=== PATIENT | female | born 1945 | race Caucasian/White ===

== ENCOUNTER 2018-08-18 19:24 | Inpatient (IN) | payer OTHER, MEDICAID, BC ==
[2018-08-18] MEDS: PIPER-TAZO 3.375 GM IV (PMX) 100 ML IVPB (20:17)
[2018-08-18] MEDS: ONDANSETRON 4 MG INJ IV (20:17)
[2018-08-18] MEDS: ACETAMINOPHEN 325 MG TAB PO (20:18)
[2018-08-18] MEDS: VANCOMYCIN 1 GM (PMX) 250 ML IVPB (20:44)
[2018-08-18] MEDS ORDERED: VANCOMYCIN IV PER PHARMACY XX (23:30)
[2018-08-18] MEDS: SOD CHLORIDE 0.9% 1,000 ML IV (23:38)
[2018-08-19] MEDS: SOD CHLORIDE 0.9% 1,000 ML IV ×3 (00:10→21:36)
[2018-08-19] MEDS: ALBUTEROL/IPRATROPIUM (NEB) 3 ML AMP HHN ×4 (06:09→19:31)
[2018-08-19] MEDS ORDERED: VANCOMYCIN 750 MG (PMX) 250 ML IVPB (08:00)
[2018-08-19] MEDS: ZINC SULFATE 220 MG CAP GTB (09:00)
[2018-08-19] MEDS: PANTOPRAZOLE (EC) 40 MG TAB PO (09:00)
[2018-08-19] MEDS: DESMOPRESSIN 0.1 MG TAB GTB ×2 (09:00→21:00)
[2018-08-19] MEDS: ASCORBIC ACID 500 MG TAB GTB (09:00)
[2018-08-19] MEDS: MULTIVITAMINS 30 ML CUP GTB (09:00)
[2018-08-19] MEDS: ASPIRIN (EC) 81 MG TAB PO (09:00)
[2018-08-19] MEDS: GABAPENTIN 300 MG CAP GTB ×2 (09:00→21:00)
[2018-08-19] MEDS: VANCOMYCIN 750 MG (PMX) 250 ML IVPB ×2 (09:29→21:38)
[2018-08-19] MEDS: CEFEPIME 1GM/50 ML (PMX) 50 ML IVPB ×2 (12:06→22:13)
[2018-08-19] MEDS: NS + KCL 20 MEQ 1,000 ML IV ×2 (17:13→23:40)
[2018-08-20] MEDS: ALBUTEROL/IPRATROPIUM (NEB) 3 ML AMP HHN ×4 (01:51→19:31)
[2018-08-20] MEDS: ACETAMINOPHEN 650 MG SUPP PR ×3 (01:57→22:35)
[2018-08-20] MEDS: NS + KCL 20 MEQ 1,000 ML IV ×3 (05:45→21:16)
[2018-08-20] MEDS: ASPIRIN (EC) 81 MG TAB PO (08:53)
[2018-08-20] MEDS: ASCORBIC ACID 500 MG TAB GTB (08:53)
[2018-08-20] MEDS: PANTOPRAZOLE (EC) 40 MG TAB PO (08:53)
[2018-08-20] MEDS: MULTIVITAMINS 30 ML CUP GTB (08:53)
[2018-08-20] MEDS: ZINC SULFATE 220 MG CAP GTB (08:53)
[2018-08-20] MEDS: DESMOPRESSIN 0.1 MG TAB GTB ×2 (08:53→21:00)
[2018-08-20] MEDS: GABAPENTIN 300 MG CAP GTB ×2 (08:53→21:00)
[2018-08-20] MEDS: CEFEPIME 1GM/50 ML (PMX) 50 ML IVPB ×2 (09:04→21:19)
[2018-08-20] MEDS: BUPIVACAINE 0.25%/EPI (SDV) 30 ML INJ (10:44)
[2018-08-20] MEDS: POVIDONE IODINE 10% 28.4 GM OINT (10:56)
[2018-08-20] MEDS ORDERED: FENTAnyl 50 MCG/ML VIAL IV ×3 (11:00)
[2018-08-20] MEDS ORDERED: MIDAZOLAM 1 MG/ML 2 ML INJ IV (11:00)
[2018-08-20] MEDS ORDERED: hydrALAzine 20 MG INJ IV (11:00)
[2018-08-20] MEDS ORDERED: EPHEDrine 25 MG/5 ML SYG IV (11:00)
[2018-08-20] MEDS ORDERED: METOCLOPRAMIDE 10 MG INJ IV (11:00)
[2018-08-20] MEDS ORDERED: DIPHENHYDRAMINE 50 MG INJ IV (11:00)
[2018-08-20] MEDS ORDERED: ROCURONIUM 50 MG INJ (11:14)
[2018-08-20] MEDS: MEPERIDINE 25 MG INJ IV (11:40)
[2018-08-20] MEDS: ONDANSETRON 4 MG INJ IV (11:40)
[2018-08-20] MEDS: LABETALOL HCL 20MG INJ IV (11:47)
[2018-08-20] MEDS: VANCOMYCIN 500 MG (PMX) 100 ML IVPB (12:51)
[2018-08-20] MEDS: DIGOXIN 500 MCG INJ IV (15:19)
[2018-08-20] MEDS: METOPROLOL 5 MG INJ IV (22:35)
[2018-08-20] MEDS: LEVALBUTEROL (NEB) 0.63 MG/3 ML AMP HHN ×2 (22:50→23:06)
[2018-08-20] MEDS: IPRATROPIUM (NEB) 0.5 MG/2.5 ML AMP HHN ×2 (22:50→23:05)
[2018-08-21] MEDS: VANCOMYCIN 500 MG (PMX) 100 ML IVPB ×2 (01:12→13:56)
[2018-08-21] MEDS: NS + KCL 20 MEQ 1,000 ML IV ×6 (02:20→21:38)
[2018-08-21] MEDS: LEVALBUTEROL (NEB) 0.63 MG/3 ML AMP HHN ×3 (07:49→23:47)
[2018-08-21] MEDS: IPRATROPIUM (NEB) 0.5 MG/2.5 ML AMP HHN ×3 (07:49→23:47)
[2018-08-21] MEDS: GABAPENTIN 300 MG CAP GTB ×2 (08:45→21:00)
[2018-08-21] MEDS: DESMOPRESSIN 0.1 MG TAB GTB ×2 (08:45→21:00)
[2018-08-21] MEDS: MULTIVITAMINS 30 ML CUP GTB (08:45)
[2018-08-21] MEDS: ASCORBIC ACID 500 MG TAB GTB (08:45)
[2018-08-21] MEDS: ZINC SULFATE 220 MG CAP GTB (08:45)
[2018-08-21] MEDS: ASPIRIN (EC) 81 MG TAB PO (09:00)
[2018-08-21] MEDS: PANTOPRAZOLE (EC) 40 MG TAB PO (09:00)
[2018-08-21] MEDS: MEROPENEM 1 GM/50ML(PMX) 50 ML IVPB ×2 (09:48→21:29)
[2018-08-21] MEDS: BARIUM SULF 2% 450 ML BTL (BERRY SMOOTHIE) PO (10:16)
[2018-08-21] MEDS: ACETAMINOPHEN 650 MG SUPP PR (11:09)
[2018-08-21] MEDS: CEFEPIME 1GM/50 ML (PMX) 50 ML IVPB (13:56)
[2018-08-21] MEDS: IOHEXOL 300MG/ML 30 ML BTL (19:49)
[2018-08-21] MEDS: LORAZEPAM 2 MG INJ IV (22:32)
[2018-08-21] MEDS: ACYCLOVIR 500 MG in DEXTROSE 5% 100 ML IVPB (22:33)
[2018-08-22] MEDS: VANCOMYCIN 500 MG (PMX) 100 ML IVPB ×2 (00:26→13:14)
[2018-08-22] MEDS: NS + KCL 20 MEQ 1,000 ML IV ×2 (05:00→09:11)
[2018-08-22] MEDS: IPRATROPIUM (NEB) 0.5 MG/2.5 ML AMP HHN ×2 (07:47→15:41)
[2018-08-22] MEDS: LEVALBUTEROL (NEB) 0.63 MG/3 ML AMP HHN ×2 (07:47→15:41)
[2018-08-22] MEDS: ASCORBIC ACID 500 MG TAB GTB (09:00)
[2018-08-22] MEDS: PANTOPRAZOLE (EC) 40 MG TAB PO (09:00)
[2018-08-22] MEDS: DESMOPRESSIN 0.1 MG TAB GTB ×2 (09:00→21:00)
[2018-08-22] MEDS: GABAPENTIN 300 MG CAP GTB ×2 (09:00→21:00)
[2018-08-22] MEDS: MULTIVITAMINS 30 ML CUP GTB (09:00)
[2018-08-22] MEDS: ZINC SULFATE 220 MG CAP GTB (09:00)
[2018-08-22] MEDS: ASPIRIN (EC) 81 MG TAB PO (09:00)
[2018-08-22] MEDS: MEROPENEM 1 GM/50ML(PMX) 50 ML IVPB ×2 (09:10→21:57)
[2018-08-22] MEDS: ENOXAPARIN 30 MG/0.3 ML SYG SC (09:23)
[2018-08-22] MEDS: ACYCLOVIR 500 MG in DEXTROSE 5% 100 ML IVPB ×2 (10:03→23:11)
[2018-08-22] MEDS: FLUCONAZOLE 100 MG/50 ML 50 ML IVPB (16:51)
[2018-08-22] MEDS: DEXTROSE 5% 1,000 ML IV (18:07)
[2018-08-22] MEDS: ATENOLOL 25 MG TAB PO (21:00)
[2018-08-22] MEDS: IPRATROPIUM (HFA) 12.9 GM INHALER INH (23:15)
[2018-08-22] MEDS: LEVALBUTEROL (HFA) 15 GM INHALER INH (23:15)
[2018-08-23] MEDS ORDERED: VANCOMYCIN 1 GM 250 ML IVPB (02:00)
[2018-08-23] MEDS: LEVALBUTEROL (HFA) 15 GM INHALER INH ×2 (07:05→16:19)
[2018-08-23] MEDS: IPRATROPIUM (HFA) 12.9 GM INHALER INH ×2 (07:05→16:19)
[2018-08-23] MEDS: DEXTROSE 5% 1,000 ML IV ×2 (07:20→20:40)
[2018-08-23] MEDS: MULTIVITAMINS 30 ML CUP GTB (09:00)
[2018-08-23] MEDS: GABAPENTIN 300 MG CAP GTB ×2 (09:00→20:44)
[2018-08-23] MEDS: ASCORBIC ACID 500 MG TAB GTB (09:00)
[2018-08-23] MEDS: DESMOPRESSIN 0.1 MG TAB GTB ×2 (09:00→20:44)
[2018-08-23] MEDS: PANTOPRAZOLE (EC) 40 MG TAB PO (09:00)
[2018-08-23] MEDS: ATENOLOL 25 MG TAB PO ×2 (09:00→20:44)
[2018-08-23] MEDS: ZINC SULFATE 220 MG CAP GTB (09:00)
[2018-08-23] MEDS: ASPIRIN (EC) 81 MG TAB PO (09:00)
[2018-08-23] MEDS: MEROPENEM 1 GM/50ML(PMX) 50 ML IVPB ×2 (11:22→21:10)
[2018-08-23] MEDS: ENOXAPARIN 30 MG/0.3 ML SYG SC (11:36)
[2018-08-23] MEDS: ACYCLOVIR 500 MG in DEXTROSE 5% 100 ML IVPB ×2 (11:43→21:10)
[2018-08-23] MEDS: VANCOMYCIN 1 GM 250 ML IVPB (14:22)
[2018-08-23] MEDS: FLUCONAZOLE 100 MG/50 ML 50 ML IVPB (16:25)
[2018-08-24] MEDS: LEVALBUTEROL (HFA) 15 GM INHALER INH ×4 (08:00→23:50)
[2018-08-24] MEDS: IPRATROPIUM (HFA) 12.9 GM INHALER INH ×4 (08:00→23:50)
[2018-08-24] MEDS: ATENOLOL 25 MG TAB PO ×2 (09:00→21:00)
[2018-08-24] MEDS: ACYCLOVIR 500 MG in DEXTROSE 5% 100 ML IVPB ×2 (09:50→21:08)
[2018-08-24] MEDS: MEROPENEM 1 GM/50ML(PMX) 50 ML IVPB ×2 (09:50→21:09)
[2018-08-24] MEDS: GABAPENTIN 300 MG CAP GTB ×2 (09:51→21:00)
[2018-08-24] MEDS: DESMOPRESSIN 4 MCG INJ IV ×2 (09:51→21:13)
[2018-08-24] MEDS: ZINC SULFATE 220 MG CAP GTB (09:51)
[2018-08-24] MEDS: ASCORBIC ACID 500 MG TAB GTB (09:51)
[2018-08-24] MEDS: ASPIRIN (EC) 81 MG TAB PO (09:51)
[2018-08-24] MEDS: MULTIVITAMINS 30 ML CUP GTB (09:51)
[2018-08-24] MEDS: PANTOPRAZOLE (EC) 40 MG TAB PO (09:51)
[2018-08-24] MEDS: DEXTROSE 5% 1,000 ML IV ×2 (10:00→16:36)
[2018-08-24] MEDS: ENOXAPARIN 30 MG/0.3 ML SYG SC (10:43)
[2018-08-24] MEDS: VANCOMYCIN 1 GM 250 ML IVPB (12:46)
[2018-08-24] MEDS: FLUCONAZOLE 100 MG/50 ML 50 ML IVPB (16:33)
[2018-08-25] MEDS: IPRATROPIUM (HFA) 12.9 GM INHALER INH ×3 (08:09→23:05)
[2018-08-25] MEDS: LEVALBUTEROL (HFA) 15 GM INHALER INH ×3 (08:09→23:05)
[2018-08-25] MEDS: ACYCLOVIR 500 MG in DEXTROSE 5% 100 ML IVPB ×2 (09:00→20:23)
[2018-08-25] MEDS: MEROPENEM 1 GM/50ML(PMX) 50 ML IVPB (09:00)
[2018-08-25] MEDS: ATENOLOL 25 MG TAB PO ×2 (09:00→20:22)
[2018-08-25] MEDS: DESMOPRESSIN 4 MCG INJ IV (09:00)
[2018-08-25] MEDS: MULTIVITAMINS 30 ML CUP GTB (09:47)
[2018-08-25] MEDS: PANTOPRAZOLE (EC) 40 MG TAB PO (09:47)
[2018-08-25] MEDS: ZINC SULFATE 220 MG CAP GTB (09:47)
[2018-08-25] MEDS: SOD CHLORIDE 0.9% 250 ML IV* (09:48)
[2018-08-25] MEDS: GABAPENTIN 300 MG CAP GTB ×2 (09:48→20:22)
[2018-08-25] MEDS: ASPIRIN (EC) 81 MG TAB PO (09:48)
[2018-08-25] MEDS: ASCORBIC ACID 500 MG TAB GTB (09:48)
[2018-08-25] MEDS: ENOXAPARIN 30 MG/0.3 ML SYG SC (10:06)
[2018-08-25] MEDS: SOD CHLORIDE 0.9% 1,000 ML IV (13:00)
[2018-08-25] MEDS ORDERED: AMIKACIN IV PER PHARMACY XX (13:30)
[2018-08-25] MEDS: LEVOFLOXACIN 500MG/D5W (PMX) 100 ML IVPB (14:00)
[2018-08-25] MEDS: FLUCONAZOLE 100 MG/50 ML 50 ML IVPB (17:12)
[2018-08-25] MEDS: AMIKACIN 350 MG in SOD CHLORIDE 0.9% 100 ML IVPB (18:38)
[2018-08-25] MEDS: DEXTROSE 5% 1,000 ML IV (20:22)
[2018-08-26] MEDS: ACCU-CHEK XX (01:00)
[2018-08-26] MEDS: LEVALBUTEROL (HFA) 15 GM INHALER INH ×3 (07:43→23:07)
[2018-08-26] MEDS: IPRATROPIUM (HFA) 12.9 GM INHALER INH ×3 (07:43→23:07)
[2018-08-26] MEDS: DEXTROSE 5% 1,000 ML IV ×2 (08:30→18:38)
[2018-08-26] MEDS: ACYCLOVIR 500 MG in DEXTROSE 5% 100 ML IVPB (08:53)
[2018-08-26] MEDS: GABAPENTIN 300 MG CAP GTB ×2 (09:00→21:00)
[2018-08-26] MEDS: ASCORBIC ACID 500 MG TAB GTB (09:00)
[2018-08-26] MEDS: ASPIRIN (EC) 81 MG TAB PO (09:00)
[2018-08-26] MEDS: ATENOLOL 25 MG TAB PO ×2 (09:00→21:00)
[2018-08-26] MEDS: ZINC SULFATE 220 MG CAP GTB (09:00)
[2018-08-26] MEDS: MULTIVITAMINS 30 ML CUP GTB (09:00)
[2018-08-26] MEDS: DESMOPRESSIN 4 MCG INJ IV (09:00)
[2018-08-26] MEDS: PANTOPRAZOLE (EC) 40 MG TAB PO (09:00)
[2018-08-26] MEDS: ENOXAPARIN 30 MG/0.3 ML SYG SC (09:01)
[2018-08-26] MEDS: VANCOMYCIN 1 GM 250 ML IVPB (12:13)
[2018-08-26] MEDS: LEVOFLOXACIN 250MG/D5W (PMX) 50 ML IVPB (14:56)
[2018-08-26] MEDS: FLUCONAZOLE 100 MG/50 ML 50 ML IVPB (16:55)
[2018-08-26] MEDS: AMIKACIN 350 MG in SOD CHLORIDE 0.9% 100 ML IVPB (18:29)
[2018-08-27] MEDS: ACCU-CHEK XX ×5 (01:00→21:00)
[2018-08-27] MEDS: IPRATROPIUM (HFA) 12.9 GM INHALER INH ×3 (07:55→23:01)
[2018-08-27] MEDS: LEVALBUTEROL (HFA) 15 GM INHALER INH ×3 (07:55→23:01)
[2018-08-27] MEDS: MULTIVITAMINS 30 ML CUP GTB (08:24)
[2018-08-27] MEDS: GABAPENTIN 300 MG CAP GTB ×2 (08:24→21:00)
[2018-08-27] MEDS: ASCORBIC ACID 500 MG TAB GTB (08:24)
[2018-08-27] MEDS: ZINC SULFATE 220 MG CAP GTB (08:24)
[2018-08-27] MEDS: ASPIRIN (EC) 81 MG TAB PO (08:28)
[2018-08-27] MEDS: DESMOPRESSIN 4 MCG INJ IV (08:29)
[2018-08-27] MEDS: PANTOPRAZOLE (EC) 40 MG TAB PO (08:29)
[2018-08-27] MEDS: ATENOLOL 25 MG TAB PO ×2 (08:34→21:00)
[2018-08-27] MEDS: ACETAMINOPHEN 650 MG SUPP PR (08:34)
[2018-08-27] MEDS: ENOXAPARIN 30 MG/0.3 ML SYG SC (08:44)
[2018-08-27] MEDS: DEXTROSE 5% 1,000 ML IV (10:43)
[2018-08-27] MEDS ORDERED: TPN 1,000 ML IV (13:00)
[2018-08-27] MEDS: TPN 1,000 ML IV (14:00)
[2018-08-27] MEDS: LEVOFLOXACIN 250MG/D5W (PMX) 50 ML IVPB (14:25)
[2018-08-27] MEDS: FLUCONAZOLE 100 MG/50 ML 50 ML IVPB (17:34)
[2018-08-27] MEDS: LIDOCAINE 1% (MPF) 5 ML VIAL SC (18:30)
[2018-08-27] MEDS: AMIKACIN 350 MG in SOD CHLORIDE 0.9% 100 ML IVPB (18:53)
[2018-08-27] MEDS: SOD CHLORIDE 0.9% 1,000 ML IV (23:14)
[2018-08-27] MEDS: ALBUMIN HUMAN 25% 50 ML IV (23:14)
[2018-08-28] MEDS: ACCU-CHEK XX ×6 (01:00→23:59)
[2018-08-28] MEDS: TPN 1,000 ML IV ×2 (01:30→13:03)
[2018-08-28] MEDS: GABAPENTIN 300 MG CAP GTB ×2 (08:37→21:50)
[2018-08-28] MEDS: MULTIVITAMINS 30 ML CUP GTB (08:37)
[2018-08-28] MEDS: ZINC SULFATE 220 MG CAP GTB (08:38)
[2018-08-28] MEDS: PANTOPRAZOLE (EC) 40 MG TAB PO (08:38)
[2018-08-28] MEDS: ASPIRIN (EC) 81 MG TAB PO (08:38)
[2018-08-28] MEDS: ASCORBIC ACID 500 MG TAB GTB (08:38)
[2018-08-28] MEDS: ATENOLOL 25 MG TAB PO ×2 (08:38→21:40)
[2018-08-28] MEDS: ENOXAPARIN 30 MG/0.3 ML SYG SC (08:39)
[2018-08-28] MEDS: DESMOPRESSIN 4 MCG INJ IV (08:39)
[2018-08-28] MEDS: IPRATROPIUM (HFA) 12.9 GM INHALER INH ×3 (09:17→23:39)
[2018-08-28] MEDS: LEVALBUTEROL (HFA) 15 GM INHALER INH ×3 (09:17→23:40)
[2018-08-28] MEDS: PROPOFOL 20 ML (11:11)
[2018-08-28] MEDS: LEVOFLOXACIN 250MG/D5W (PMX) 50 ML IVPB (14:02)
[2018-08-28] MEDS: FLUCONAZOLE 100 MG/50 ML 50 ML IVPB (15:41)
[2018-08-28] MEDS: AMIKACIN 350 MG in SOD CHLORIDE 0.9% 100 ML IVPB (17:26)
[2018-08-29] MEDS: morphine 2 MG INJ IV (00:01)
[2018-08-29] MEDS: ACCU-CHEK XX ×6 (02:55→21:49)
[2018-08-29] MEDS: INSULIN ASPART [NOVOLOG] 3 ML PEN SC ×5 (05:25→21:00)
[2018-08-29] MEDS: TPN 1,000 ML IV (06:15)
[2018-08-29] MEDS: POTASSIUM CHLORIDE (SR) 20 MEQ TAB PO (08:06)
[2018-08-29] MEDS: IPRATROPIUM (HFA) 12.9 GM INHALER INH ×3 (08:41→23:12)
[2018-08-29] MEDS: LEVALBUTEROL (HFA) 15 GM INHALER INH ×3 (08:42→23:12)
[2018-08-29] MEDS: MULTIVITAMINS 30 ML CUP GTB (09:52)
[2018-08-29] MEDS: ASPIRIN (EC) 81 MG TAB PO (09:53)
[2018-08-29] MEDS: ATENOLOL 25 MG TAB PO ×2 (09:53→21:00)
[2018-08-29] MEDS: PANTOPRAZOLE (EC) 40 MG TAB PO (09:54)
[2018-08-29] MEDS: ASCORBIC ACID 500 MG TAB GTB (09:54)
[2018-08-29] MEDS: GABAPENTIN 300 MG CAP GTB ×2 (09:54→21:00)
[2018-08-29] MEDS: ZINC SULFATE 220 MG CAP GTB (09:54)
[2018-08-29] MEDS: DESMOPRESSIN 4 MCG INJ IV (09:55)
[2018-08-29] MEDS: ENOXAPARIN 30 MG/0.3 ML SYG SC (10:04)
[2018-08-29] MEDS: POTASSIUM CHLORIDE 20 MEQ POWDER FOR ORAL SOLN GTB (14:16)
[2018-08-29] MEDS: LEVOFLOXACIN 250MG/D5W (PMX) 50 ML IVPB (15:22)
[2018-08-29] MEDS: FLUCONAZOLE 100 MG/50 ML 50 ML IVPB (17:59)
[2018-08-29] MEDS: AMIKACIN 350 MG in SOD CHLORIDE 0.9% 100 ML IVPB (19:01)
[2018-08-30] MEDS: INSULIN ASPART [NOVOLOG] 3 ML PEN SC ×6 (01:00→20:56)
[2018-08-30] MEDS: ACCU-CHEK XX ×6 (01:09→20:56)
[2018-08-30] MEDS: ACETAMINOPHEN 650MG/20.3ML CUP GTB ×2 (04:35→23:22)
[2018-08-30] MEDS: LEVALBUTEROL (HFA) 15 GM INHALER INH ×3 (07:46→23:15)
[2018-08-30] MEDS: IPRATROPIUM (HFA) 12.9 GM INHALER INH ×3 (07:46→23:15)
[2018-08-30] MEDS: ATENOLOL 25 MG TAB PO ×2 (09:00→20:43)
[2018-08-30] MEDS: DESMOPRESSIN 4 MCG INJ IV (09:14)
[2018-08-30] MEDS: MULTIVITAMINS 30 ML CUP GTB (09:14)
[2018-08-30] MEDS: ZINC SULFATE 220 MG CAP GTB (09:15)
[2018-08-30] MEDS: ASCORBIC ACID 500 MG TAB GTB (09:16)
[2018-08-30] MEDS: GABAPENTIN 300 MG CAP GTB ×2 (09:16→20:42)
[2018-08-30] MEDS: ASPIRIN (EC) 81 MG TAB PO (09:16)
[2018-08-30] MEDS: ENOXAPARIN 30 MG/0.3 ML SYG SC (09:17)
[2018-08-30] MEDS: LANSOPRAZOLE 30 MG CAP GTB (09:21)
[2018-08-30] MEDS: ONDANSETRON 4 MG TAB GTB (12:12)
[2018-08-30] MEDS ORDERED: VANCOMYCIN IV PER PHARMACY XX (12:30)
[2018-08-30] MEDS ORDERED: ONDANSETRON 4 MG INJ IV (14:00)
[2018-08-30] MEDS: SOD CHLORIDE 0.9% 1,000 ML IV (14:08)
[2018-08-30] MEDS: MEROPENEM 1 GM/50ML(PMX) 50 ML IVPB ×2 (14:08→20:43)
[2018-08-30] MEDS: VANCOMYCIN 1 GM 250 ML IVPB (15:02)
[2018-08-30] MEDS: FLUCONAZOLE 100 MG TAB PO (17:20)
[2018-08-31] MEDS: INSULIN ASPART [NOVOLOG] 3 ML PEN SC ×6 (01:00→21:00)
[2018-08-31] MEDS: ACCU-CHEK XX ×6 (01:00→21:13)
[2018-08-31] MEDS: SOD CHLORIDE 0.9% 1,000 ML IV ×3 (05:37→20:55)
[2018-08-31] MEDS: LANSOPRAZOLE 30 MG CAP GTB (05:37)
[2018-08-31] MEDS: IPRATROPIUM (HFA) 12.9 GM INHALER INH ×3 (08:11→23:26)
[2018-08-31] MEDS: LEVALBUTEROL (HFA) 15 GM INHALER INH ×3 (08:11→23:26)
[2018-08-31] MEDS: MEROPENEM 1 GM/50ML(PMX) 50 ML IVPB ×2 (08:59→20:55)
[2018-08-31] MEDS: MULTIVITAMINS 30 ML CUP GTB (08:59)
[2018-08-31] MEDS: GABAPENTIN 300 MG CAP GTB ×2 (09:00→20:55)
[2018-08-31] MEDS: ATENOLOL 25 MG TAB PO ×2 (09:00→21:00)
[2018-08-31] MEDS: ASCORBIC ACID 500 MG TAB GTB (09:00)
[2018-08-31] MEDS: ASPIRIN (EC) 81 MG TAB PO (09:00)
[2018-08-31] MEDS: ZINC SULFATE 220 MG CAP GTB (09:00)
[2018-08-31] MEDS: DESMOPRESSIN 4 MCG INJ IV (09:01)
[2018-08-31] MEDS: ENOXAPARIN 30 MG/0.3 ML SYG SC (09:09)
[2018-08-31] MEDS: SOD CHLORIDE 0.9% 500 ML IV (09:11)
[2018-08-31] MEDS: ACETAMINOPHEN 650MG/20.3ML CUP GTB (13:58)
[2018-08-31] MEDS: FLUCONAZOLE 100 MG TAB PO (17:13)
[2018-09-01] MEDS: INSULIN ASPART [NOVOLOG] 3 ML PEN SC ×6 (01:00→21:00)
[2018-09-01] MEDS: ACCU-CHEK XX ×6 (01:40→21:31)
[2018-09-01] MEDS: LANSOPRAZOLE 30 MG CAP GTB (05:48)
[2018-09-01] MEDS: DEXTROSE 50% 50 ML SYRINGE IV (06:10)
[2018-09-01] MEDS: SOD CHLORIDE 0.9% 1,000 ML IV (06:38)
[2018-09-01] MEDS: LEVALBUTEROL (HFA) 15 GM INHALER INH ×2 (07:40→15:20)
[2018-09-01] MEDS: IPRATROPIUM (HFA) 12.9 GM INHALER INH ×2 (07:40→15:20)
[2018-09-01] MEDS: MEROPENEM 1 GM/50ML(PMX) 50 ML IVPB ×2 (08:51→20:53)
[2018-09-01] MEDS: MULTIVITAMINS 30 ML CUP GTB (08:51)
[2018-09-01] MEDS: ZINC SULFATE 220 MG CAP GTB (08:52)
[2018-09-01] MEDS: GABAPENTIN 300 MG CAP GTB ×2 (08:52→20:53)
[2018-09-01] MEDS: ATENOLOL 25 MG TAB PO ×2 (08:52→20:53)
[2018-09-01] MEDS: ASCORBIC ACID 500 MG TAB GTB (08:52)
[2018-09-01] MEDS: ASPIRIN (EC) 81 MG TAB PO (08:52)
[2018-09-01] MEDS: ENOXAPARIN 30 MG/0.3 ML SYG SC (08:58)
[2018-09-01] MEDS: D5W-0.45 NACL + KCL 20 MEQ 1,000 ML IV ×2 (10:53→21:00)
[2018-09-01] MEDS: DESMOPRESSIN 4 MCG INJ IV (10:53)
[2018-09-01] MEDS: VANCOMYCIN 1 GM 250 ML IVPB (14:43)
[2018-09-01] MEDS: FLUCONAZOLE 100 MG TAB PO (17:35)
[2018-09-02] MEDS: LEVALBUTEROL (HFA) 15 GM INHALER INH ×3 (00:30→16:30)
[2018-09-02] MEDS: IPRATROPIUM (HFA) 12.9 GM INHALER INH ×3 (00:31→16:30)
[2018-09-02] MEDS: ACCU-CHEK XX (01:00)
[2018-09-02] MEDS: D5W-0.45 NACL + KCL 20 MEQ 1,000 ML IV ×2 (02:12→18:29)
[2018-09-02] MEDS: INSULIN ASPART [NOVOLOG] 3 ML PEN SC ×4 (06:00→17:25)
[2018-09-02] MEDS: LANSOPRAZOLE 30 MG CAP GTB (06:15)
[2018-09-02] MEDS: ATENOLOL 25 MG TAB PO ×2 (08:36→20:49)
[2018-09-02] MEDS: MULTIVITAMINS 30 ML CUP GTB (08:44)
[2018-09-02] MEDS: GABAPENTIN 300 MG CAP GTB ×2 (08:45→20:48)
[2018-09-02] MEDS: ZINC SULFATE 220 MG CAP GTB (08:45)
[2018-09-02] MEDS: MEROPENEM 1 GM/50ML(PMX) 50 ML IVPB ×2 (08:45→20:48)
[2018-09-02] MEDS: ASPIRIN (EC) 81 MG TAB PO (08:45)
[2018-09-02] MEDS: ASCORBIC ACID 500 MG TAB GTB (08:45)
[2018-09-02] MEDS: ENOXAPARIN 30 MG/0.3 ML SYG SC (09:00)
[2018-09-02] MEDS: DESMOPRESSIN 4 MCG INJ IV (09:24)
[2018-09-02] MEDS: METOCLOPRAMIDE 10 MG INJ IV (17:29)
[2018-09-02] MEDS: FLUCONAZOLE 100 MG TAB PO (17:29)
[2018-09-03] MEDS: METOCLOPRAMIDE 10 MG INJ IV ×2 (00:03→06:31)
[2018-09-03] MEDS: LANSOPRAZOLE 30 MG CAP GTB (05:51)
[2018-09-03] MEDS: INSULIN ASPART [NOVOLOG] 3 ML PEN SC ×4 (05:51→17:29)
[2018-09-03] MEDS: D5W-0.45 NACL + KCL 20 MEQ 1,000 ML IV ×2 (06:07→20:18)
[2018-09-03] MEDS: ATENOLOL 25 MG TAB PO (09:00)
[2018-09-03] MEDS: ASPIRIN (EC) 81 MG TAB PO (09:22)
[2018-09-03] MEDS: MULTIVITAMINS 30 ML CUP GTB (09:22)
[2018-09-03] MEDS: ASCORBIC ACID 500 MG TAB GTB (09:22)
[2018-09-03] MEDS: DESMOPRESSIN 4 MCG INJ IV (09:22)
[2018-09-03] MEDS: ZINC SULFATE 220 MG CAP GTB (09:22)
[2018-09-03] MEDS: MEROPENEM 1 GM/50ML(PMX) 50 ML IVPB ×2 (09:22→20:18)
[2018-09-03] MEDS: GABAPENTIN 300 MG CAP GTB ×2 (09:22→20:18)
[2018-09-03] MEDS: ENOXAPARIN 30 MG/0.3 ML SYG SC (09:41)
[2018-09-03] MEDS: LEVALBUTEROL (HFA) 15 GM INHALER INH ×3 (11:46→14:51)
[2018-09-03] MEDS: IPRATROPIUM (HFA) 12.9 GM INHALER INH ×3 (11:46→14:51)
[2018-09-03] MEDS: ALBUMIN HUMAN 5% 250 ML IV (12:47)
[2018-09-03] MEDS: SOD CHLORIDE 0.9% 250 ML IV (13:46)
[2018-09-03] MEDS: SOD CHLORIDE 0.9% 1,000 ML IV (14:16)
[2018-09-03] MEDS: ALBUMIN HUMAN 25% 50 ML IV (14:56)
[2018-09-03] MEDS: VANCOMYCIN 1 GM 250 ML IVPB (17:01)
[2018-09-03] MEDS: CASPOFUNGIN 70 MG in SOD CHLORIDE 0.9% 250 ML IVPB (18:01)
[2018-09-03] MEDS: ALBUMIN HUMAN 25% 100 ML IV (18:30)
[2018-09-03] MEDS: DESMOPRESSIN 0.1 MG TAB GTB (20:18)
[2018-09-03] MEDS: NORepinephrine 8MG/250 ML (PMX 250 ML IV (20:57)
[2018-09-04] MEDS: IPRATROPIUM (HFA) 12.9 GM INHALER INH ×4 (00:08→23:46)
[2018-09-04] MEDS: LEVALBUTEROL (HFA) 15 GM INHALER INH ×4 (00:08→23:46)
[2018-09-04] MEDS: ALBUMIN HUMAN 25% 100 ML IV ×2 (02:36→10:43)
[2018-09-04] MEDS: DAKINS 0.0125%(1/40) 473 ML SOLUTION TP ×3 (03:51→20:45)
[2018-09-04] MEDS: INSULIN ASPART [NOVOLOG] 3 ML PEN SC ×4 (05:49→17:11)
[2018-09-04] MEDS: LANSOPRAZOLE 30 MG CAP GTB (05:49)
[2018-09-04] MEDS: ZINC SULFATE 220 MG CAP GTB (09:15)
[2018-09-04] MEDS: DESMOPRESSIN 0.1 MG TAB GTB ×2 (09:16→20:44)
[2018-09-04] MEDS: ASPIRIN (EC) 81 MG TAB PO (09:17)
[2018-09-04] MEDS: GABAPENTIN 300 MG CAP GTB ×2 (09:17→20:44)
[2018-09-04] MEDS: ASCORBIC ACID 500 MG TAB GTB (09:18)
[2018-09-04] MEDS: MEROPENEM 1 GM/50ML(PMX) 50 ML IVPB ×2 (09:19→20:44)
[2018-09-04] MEDS: MULTIVITAMINS 30 ML CUP GTB (09:19)
[2018-09-04] MEDS: ENOXAPARIN 30 MG/0.3 ML SYG SC (09:27)
[2018-09-04] MEDS ORDERED: DEXTROSE 50% 50 ML SYRINGE IV (09:30)
[2018-09-04] MEDS ORDERED: GLUCAGON 1 MG INJ IM (09:30)
[2018-09-04] MEDS ORDERED: GLUCOSE GEL 15 GRAM TUBE BUCCAL (09:30)
[2018-09-04] MEDS ORDERED: GLUCOSE GEL 15 GRAM TUBE PO ×2 (09:30)
[2018-09-04] MEDS: D5W-0.45 NACL + KCL 20 MEQ 1,000 ML IV ×2 (10:43→15:30)
[2018-09-04] MEDS: morphine 2 MG INJ IV (17:11)
[2018-09-04] MEDS: CASPOFUNGIN 50 MG in SOD CHLORIDE 0.9% 250 ML IVPB (17:11)
[2018-09-04] MEDS ORDERED: METOCLOPRAMIDE 10 MG INJ IV (19:50)
[2018-09-05] MEDS: LANSOPRAZOLE 30 MG CAP GTB (05:45)
[2018-09-05] MEDS: INSULIN ASPART [NOVOLOG] 3 ML PEN SC ×5 (05:45→23:51)
[2018-09-05] MEDS ORDERED: NORepinephrine 8MG/250 ML (PMX 250 ML IV ×2 (09:30→19:00)
[2018-09-05] MEDS: LEVALBUTEROL (HFA) 15 GM INHALER INH ×3 (10:04→23:13)
[2018-09-05] MEDS: IPRATROPIUM (HFA) 12.9 GM INHALER INH ×3 (10:04→23:14)
[2018-09-05] MEDS: ASPIRIN (EC) 81 MG TAB PO (10:26)
[2018-09-05] MEDS: DESMOPRESSIN 0.1 MG TAB GTB ×2 (10:26→21:16)
[2018-09-05] MEDS: GABAPENTIN 300 MG CAP GTB ×2 (10:26→21:16)
[2018-09-05] MEDS: ZINC SULFATE 220 MG CAP GTB (10:26)
[2018-09-05] MEDS: ASCORBIC ACID 500 MG TAB GTB (10:26)
[2018-09-05] MEDS: MULTIVITAMINS 30 ML CUP GTB (10:26)
[2018-09-05] MEDS: MEROPENEM 1 GM/50ML(PMX) 50 ML IVPB (10:27)
[2018-09-05] MEDS: ENOXAPARIN 30 MG/0.3 ML SYG SC (10:28)
[2018-09-05] MEDS: DAKINS 0.0125%(1/40) 473 ML SOLUTION TP ×2 (10:29→22:12)
[2018-09-05] MEDS: D5W-0.45 NACL + KCL 20 MEQ 1,000 ML IV (12:52)
[2018-09-05] MEDS: VANCOMYCIN 1 GM 250 ML IVPB (14:30)
[2018-09-05] MEDS: CASPOFUNGIN 50 MG in SOD CHLORIDE 0.9% 250 ML IVPB (16:41)
[2018-09-05] MEDS ORDERED: AMIKACIN IV PER PHARMACY XX (18:00)
[2018-09-05] MEDS: DOXYCYCLINE 100 MG TAB PO (21:16)
[2018-09-05] MEDS: METOPROLOL 5 MG INJ IV (21:24)
[2018-09-05] MEDS: morphine 2 MG INJ IV (22:02)
[2018-09-05] MEDS: AMIKACIN 425 MG in SOD CHLORIDE 0.9% 100 ML IVPB (22:12)
[2018-09-05] MEDS: FENTAnyl (DRIP) 1000 mcg/100mL 100 ML IV (23:55)
[2018-09-06] MEDS: D5W-0.45 NACL + KCL 20 MEQ 1,000 ML IV (04:10)
[2018-09-06] MEDS: INSULIN ASPART [NOVOLOG] 3 ML PEN SC ×3 (05:25→17:46)
[2018-09-06] MEDS: LANSOPRAZOLE 30 MG CAP GTB (05:26)
[2018-09-06] MEDS: LEVALBUTEROL (HFA) 15 GM INHALER INH ×3 (07:52→23:00)
[2018-09-06] MEDS: IPRATROPIUM (HFA) 12.9 GM INHALER INH ×3 (07:52→23:00)
[2018-09-06] MEDS: NA BICARBONATE 8.4% 50 ML SYG IV (08:44)
[2018-09-06] MEDS: ASPIRIN (EC) 81 MG TAB PO (08:46)
[2018-09-06] MEDS: ZINC SULFATE 220 MG CAP GTB (08:46)
[2018-09-06] MEDS: DESMOPRESSIN 0.1 MG TAB GTB ×2 (08:46→21:39)
[2018-09-06] MEDS: DOXYCYCLINE 100 MG TAB PO ×2 (08:46→21:39)
[2018-09-06] MEDS: MULTIVITAMINS 30 ML CUP GTB (08:46)
[2018-09-06] MEDS: ASCORBIC ACID 500 MG TAB GTB (08:46)
[2018-09-06] MEDS: GABAPENTIN 300 MG CAP GTB ×2 (08:46→21:39)
[2018-09-06] MEDS: DAKINS 0.0125%(1/40) 473 ML SOLUTION TP ×2 (08:47→21:40)
[2018-09-06] MEDS: ENOXAPARIN 30 MG/0.3 ML SYG SC (09:02)
[2018-09-06] MEDS: SODIUM BICARBONATE (IV ADD) 100 MEQ in DEXTROSE 5% 1,000 ML IV ×2 (09:47→21:39)
[2018-09-06] MEDS: CASPOFUNGIN 50 MG in SOD CHLORIDE 0.9% 250 ML IVPB (17:46)
[2018-09-06] MEDS: AMIKACIN 425 MG in SOD CHLORIDE 0.9% 100 ML IVPB (21:40)
[2018-09-07] MEDS: INSULIN ASPART [NOVOLOG] 3 ML PEN SC ×4 (05:41→17:32)
[2018-09-07] MEDS: LANSOPRAZOLE 30 MG CAP GTB (05:42)
[2018-09-07] MEDS: LEVALBUTEROL (HFA) 15 GM INHALER INH ×2 (07:10→16:50)
[2018-09-07] MEDS: IPRATROPIUM (HFA) 12.9 GM INHALER INH ×2 (07:10→16:50)
[2018-09-07] MEDS: FENTAnyl (DRIP) 1000 mcg/100mL 100 ML IV (08:30)
[2018-09-07] MEDS: MULTIVITAMINS 30 ML CUP GTB (09:48)
[2018-09-07] MEDS: DESMOPRESSIN 0.1 MG TAB GTB ×2 (09:48→21:15)
[2018-09-07] MEDS: ZINC SULFATE 220 MG CAP GTB (09:48)
[2018-09-07] MEDS: DOXYCYCLINE 100 MG TAB PO ×2 (09:48→21:15)
[2018-09-07] MEDS: ASCORBIC ACID 500 MG TAB GTB (09:48)
[2018-09-07] MEDS: GABAPENTIN 300 MG CAP GTB ×2 (09:48→21:15)
[2018-09-07] MEDS: ASPIRIN (EC) 81 MG TAB PO (09:48)
[2018-09-07] MEDS: DAKINS 0.0125%(1/40) 473 ML SOLUTION TP ×2 (09:49→21:19)
[2018-09-07] MEDS: ENOXAPARIN 30 MG/0.3 ML SYG SC (09:50)
[2018-09-07] MEDS: SODIUM BICARBONATE (IV ADD) 100 MEQ in DEXTROSE 5% 1,000 ML IV ×2 (11:40→13:10)
[2018-09-07] MEDS: FUROSEMIDE 20 MG INJ IV (13:11)
[2018-09-07] MEDS: LEVOFLOXACIN 500MG/D5W (PMX) 100 ML IVPB (15:37)
[2018-09-07] MEDS: CASPOFUNGIN 50 MG in SOD CHLORIDE 0.9% 250 ML IVPB (17:36)
[2018-09-07] MEDS: ACETAMINOPHEN 650MG/20.3ML CUP GTB (21:14)
[2018-09-07] MEDS: AMIKACIN 425 MG in SOD CHLORIDE 0.9% 100 ML IVPB (22:08)
[2018-09-08] MEDS: LEVALBUTEROL (HFA) 15 GM INHALER INH ×4 (01:14→23:51)
[2018-09-08] MEDS: IPRATROPIUM (HFA) 12.9 GM INHALER INH ×4 (01:14→23:51)
[2018-09-08] MEDS: SODIUM BICARBONATE (IV ADD) 100 MEQ in DEXTROSE 5% 1,000 ML IV ×2 (03:22→19:00)
[2018-09-08] MEDS: LANSOPRAZOLE 30 MG CAP GTB (06:40)
[2018-09-08] MEDS: INSULIN ASPART [NOVOLOG] 3 ML PEN SC ×4 (06:48→17:28)
[2018-09-08] MEDS: DESMOPRESSIN 0.1 MG TAB GTB ×2 (09:15→20:25)
[2018-09-08] MEDS: DAKINS 0.0125%(1/40) 473 ML SOLUTION TP ×2 (09:16→20:34)
[2018-09-08] MEDS: DOXYCYCLINE 100 MG TAB PO ×2 (09:16→20:25)
[2018-09-08] MEDS: ASPIRIN (EC) 81 MG TAB PO (09:16)
[2018-09-08] MEDS: ZINC SULFATE 220 MG CAP GTB (09:16)
[2018-09-08] MEDS: ASCORBIC ACID 500 MG TAB GTB (09:16)
[2018-09-08] MEDS: MULTIVITAMINS 30 ML CUP GTB (09:16)
[2018-09-08] MEDS: GABAPENTIN 300 MG CAP GTB ×2 (09:16→20:25)
[2018-09-08] MEDS: ENOXAPARIN 30 MG/0.3 ML SYG SC (09:17)
[2018-09-08] MEDS: LEVOFLOXACIN 250MG/D5W (PMX) 50 ML IVPB (12:16)
[2018-09-08] MEDS: FUROSEMIDE 20 MG INJ IV (12:17)
[2018-09-08] MEDS: CASPOFUNGIN 50 MG in SOD CHLORIDE 0.9% 250 ML IVPB (17:28)
[2018-09-09] MEDS: INSULIN ASPART [NOVOLOG] 3 ML PEN SC ×4 (00:11→18:00)
[2018-09-09] MEDS: LANSOPRAZOLE 30 MG CAP GTB (06:10)
[2018-09-09] MEDS ORDERED: FUROSEMIDE 20 MG INJ IV (09:00)
[2018-09-09] MEDS: LEVALBUTEROL (HFA) 15 GM INHALER INH ×3 (09:02→23:14)
[2018-09-09] MEDS: IPRATROPIUM (HFA) 12.9 GM INHALER INH ×3 (09:03→23:14)
[2018-09-09] MEDS: DOXYCYCLINE 100 MG TAB PO ×2 (09:32→20:55)
[2018-09-09] MEDS: DESMOPRESSIN 0.1 MG TAB GTB ×2 (09:32→20:56)
[2018-09-09] MEDS: GABAPENTIN 300 MG CAP GTB ×2 (09:32→20:55)
[2018-09-09] MEDS: MULTIVITAMINS 30 ML CUP GTB (09:32)
[2018-09-09] MEDS: ASPIRIN 81 MG TAB GTB (09:33)
[2018-09-09] MEDS: FUROSEMIDE 20 MG INJ IV (09:33)
[2018-09-09] MEDS: ZINC SULFATE 220 MG CAP GTB (09:33)
[2018-09-09] MEDS: ASCORBIC ACID 500 MG TAB GTB (09:33)
[2018-09-09] MEDS: DAKINS 0.0125%(1/40) 473 ML SOLUTION TP ×2 (09:35→22:51)
[2018-09-09] MEDS: ENOXAPARIN 30 MG/0.3 ML SYG SC (09:35)
[2018-09-09] MEDS: LEVOFLOXACIN 250MG/D5W (PMX) 50 ML IVPB (13:06)
[2018-09-09] MEDS: CASPOFUNGIN 50 MG in SOD CHLORIDE 0.9% 250 ML IVPB (17:44)
[2018-09-09] MEDS: AMIKACIN 425 MG in SOD CHLORIDE 0.9% 100 ML IVPB (17:48)
[2018-09-09] MEDS: SOD CHLORIDE 0.9% 100 ML (20:40)
[2018-09-09] MEDS: IOHEXOL 300MG/ML 150 ML BTL (20:40)
[2018-09-09] MEDS: ACETAMINOPHEN 650MG/20.3ML CUP GTB (21:15)
[2018-09-09] MEDS: IOHEXOL 14.3 MG(I)/ML (ADULT) BTL PO (23:25)
[2018-09-10] MEDS: INSULIN ASPART [NOVOLOG] 3 ML PEN SC ×4 (05:19→18:00)
[2018-09-10] MEDS: ACETAMINOPHEN 650MG/20.3ML CUP GTB (05:20)
[2018-09-10] MEDS: LANSOPRAZOLE 30 MG CAP GTB (06:20)
[2018-09-10] MEDS: IPRATROPIUM (HFA) 12.9 GM INHALER INH ×3 (08:45→23:54)
[2018-09-10] MEDS: LEVALBUTEROL (HFA) 15 GM INHALER INH ×3 (08:45→23:54)
[2018-09-10] MEDS: DOXYCYCLINE 100 MG TAB PO ×2 (09:24→21:13)
[2018-09-10] MEDS: ZINC SULFATE 220 MG CAP GTB (09:25)
[2018-09-10] MEDS: MULTIVITAMINS 30 ML CUP GTB (09:25)
[2018-09-10] MEDS: DESMOPRESSIN 0.1 MG TAB GTB ×2 (09:25→21:13)
[2018-09-10] MEDS: GABAPENTIN 300 MG CAP GTB ×2 (09:25→21:13)
[2018-09-10] MEDS: ASCORBIC ACID 500 MG TAB GTB (09:25)
[2018-09-10] MEDS: ASPIRIN 81 MG TAB GTB (09:25)
[2018-09-10] MEDS: ENOXAPARIN 30 MG/0.3 ML SYG SC (09:26)
[2018-09-10] MEDS: DAKINS 0.0125%(1/40) 473 ML SOLUTION TP ×2 (09:26→21:13)
[2018-09-10] MEDS: FUROSEMIDE 20 MG INJ IV (09:27)
[2018-09-10] MEDS: LEVOFLOXACIN 250MG/D5W (PMX) 50 ML IVPB (13:29)
[2018-09-10] MEDS: morphine 2 MG INJ IV (13:31)
[2018-09-10] MEDS: CASPOFUNGIN 50 MG in SOD CHLORIDE 0.9% 250 ML IVPB (18:27)
[2018-09-11] MEDS: LANSOPRAZOLE 30 MG CAP GTB (05:41)
[2018-09-11] MEDS: AMIKACIN 425 MG in SOD CHLORIDE 0.9% 100 ML IVPB (05:41)
[2018-09-11] MEDS: INSULIN ASPART [NOVOLOG] 3 ML PEN SC ×4 (05:47→17:53)
[2018-09-11] MEDS: LEVALBUTEROL (HFA) 15 GM INHALER INH ×2 (07:52→15:52)
[2018-09-11] MEDS: IPRATROPIUM (HFA) 12.9 GM INHALER INH ×2 (07:52→15:51)
[2018-09-11] MEDS: DESMOPRESSIN 0.1 MG TAB GTB ×2 (08:33→21:16)
[2018-09-11] MEDS: ZINC SULFATE 220 MG CAP GTB (08:33)
[2018-09-11] MEDS: DOXYCYCLINE 100 MG TAB PO (08:33)
[2018-09-11] MEDS: ASCORBIC ACID 500 MG TAB GTB (08:33)
[2018-09-11] MEDS: MULTIVITAMINS 30 ML CUP GTB (08:33)
[2018-09-11] MEDS: GABAPENTIN 300 MG CAP GTB ×2 (08:33→21:16)
[2018-09-11] MEDS: ASPIRIN 81 MG TAB GTB (08:33)
[2018-09-11] MEDS: FUROSEMIDE 20 MG INJ IV ×2 (08:34→21:16)
[2018-09-11] MEDS: DAKINS 0.0125%(1/40) 473 ML SOLUTION TP ×2 (08:34→21:16)
[2018-09-11] MEDS: ENOXAPARIN 30 MG/0.3 ML SYG SC (08:44)
[2018-09-11] MEDS ORDERED: VANCOMYCIN IV PER PHARMACY XX (11:00)
[2018-09-11] MEDS: VANCOMYCIN 1 GM 250 ML IVPB (12:20)
[2018-09-11] MEDS: ACETAMINOPHEN 650MG/20.3ML CUP GTB (16:34)
[2018-09-12] MEDS: IPRATROPIUM (HFA) 12.9 GM INHALER INH ×4 (00:20→23:10)
[2018-09-12] MEDS: LEVALBUTEROL (HFA) 15 GM INHALER INH ×4 (00:20→23:10)
[2018-09-12] MEDS: INSULIN ASPART [NOVOLOG] 3 ML PEN SC ×4 (06:00→18:00)
[2018-09-12] MEDS: GABAPENTIN 300 MG CAP GTB ×2 (09:19→22:18)
[2018-09-12] MEDS: FUROSEMIDE 20 MG INJ IV ×2 (09:19→22:19)
[2018-09-12] MEDS: MULTIVITAMINS 30 ML CUP GTB (09:19)
[2018-09-12] MEDS: LANSOPRAZOLE 30 MG CAP GTB (09:19)
[2018-09-12] MEDS: ZINC SULFATE 220 MG CAP GTB (09:20)
[2018-09-12] MEDS: DAKINS 0.0125%(1/40) 473 ML SOLUTION TP ×2 (09:20→21:00)
[2018-09-12] MEDS: ASCORBIC ACID 500 MG TAB GTB (09:20)
[2018-09-12] MEDS: DESMOPRESSIN 0.1 MG TAB GTB ×2 (09:20→22:18)
[2018-09-12] MEDS: ASPIRIN 81 MG TAB GTB (09:20)
[2018-09-12] MEDS: ENOXAPARIN 30 MG/0.3 ML SYG SC (10:00)
[2018-09-12] MEDS: VANCOMYCIN 1 GM 250 ML IVPB (13:40)
[2018-09-13] MEDS: INSULIN ASPART [NOVOLOG] 3 ML PEN SC ×4 (06:00→18:00)
[2018-09-13] MEDS: LANSOPRAZOLE 30 MG CAP GTB ×2 (06:00→09:58)
[2018-09-13] MEDS: LEVALBUTEROL (HFA) 15 GM INHALER INH ×3 (08:48→23:35)
[2018-09-13] MEDS: IPRATROPIUM (HFA) 12.9 GM INHALER INH ×3 (08:49→23:35)
[2018-09-13] MEDS: FUROSEMIDE 20 MG INJ IV ×2 (09:00→21:32)
[2018-09-13] MEDS: ZINC SULFATE 220 MG CAP GTB (09:58)
[2018-09-13] MEDS: GABAPENTIN 300 MG CAP GTB ×2 (09:58→21:31)
[2018-09-13] MEDS: DESMOPRESSIN 0.1 MG TAB GTB ×2 (09:58→21:31)
[2018-09-13] MEDS: ASCORBIC ACID 500 MG TAB GTB (09:58)
[2018-09-13] MEDS: ASPIRIN 81 MG TAB GTB (09:58)
[2018-09-13] MEDS: MULTIVITAMINS 30 ML CUP GTB (09:59)
[2018-09-13] MEDS: ENOXAPARIN 30 MG/0.3 ML SYG SC (10:34)
[2018-09-13] MEDS: VANCOMYCIN 1 GM 250 ML IVPB (12:41)
[2018-09-13] MEDS: TOBRAMYCIN/0.25NS 300 MG/5 ML INHAL NEB ×2 (12:59→19:18)
[2018-09-13] MEDS: metroNIDAZOLE 500 MG TAB PO ×2 (16:18→21:33)
[2018-09-13] MEDS: ACETAMINOPHEN 650MG/20.3ML CUP GTB (16:18)
[2018-09-13] MEDS: FLUCONAZOLE 100 MG TAB PO (16:21)
[2018-09-13] MEDS: MEROPENEM 1 GM/50ML(PMX) 50 ML IVPB ×2 (18:23→21:32)
[2018-09-13] MEDS: SILVER SULFADIAZINE 1% 400 GM CR TOP (21:33)
[2018-09-14] MEDS: INSULIN ASPART [NOVOLOG] 3 ML PEN SC ×4 (06:00→17:53)
[2018-09-14] MEDS: metroNIDAZOLE 500 MG TAB PO ×3 (06:22→21:49)
[2018-09-14] MEDS: LEVALBUTEROL (HFA) 15 GM INHALER INH ×3 (07:46→23:38)
[2018-09-14] MEDS: IPRATROPIUM (HFA) 12.9 GM INHALER INH ×3 (07:46→23:38)
[2018-09-14] MEDS: TOBRAMYCIN/0.25NS 300 MG/5 ML INHAL NEB (09:10)
[2018-09-14] MEDS: FLUCONAZOLE 100 MG TAB PO (09:26)
[2018-09-14] MEDS: ASCORBIC ACID 500 MG TAB GTB (09:26)
[2018-09-14] MEDS: DESMOPRESSIN 0.1 MG TAB GTB ×2 (09:26→21:48)
[2018-09-14] MEDS: FUROSEMIDE 20 MG INJ IV ×2 (09:27→23:55)
[2018-09-14] MEDS: ASPIRIN 81 MG TAB GTB (09:27)
[2018-09-14] MEDS: GABAPENTIN 300 MG CAP GTB ×2 (09:32→21:48)
[2018-09-14] MEDS: MULTIVITAMINS 30 ML CUP GTB (09:32)
[2018-09-14] MEDS: ZINC SULFATE 220 MG CAP GTB (09:32)
[2018-09-14] MEDS: SILVER SULFADIAZINE 1% 400 GM CR TOP ×2 (09:33→21:49)
[2018-09-14] MEDS: MEROPENEM 1 GM/50ML(PMX) 50 ML IVPB (09:35)
[2018-09-14] MEDS: ENOXAPARIN 30 MG/0.3 ML SYG SC (09:48)
[2018-09-14] MEDS ORDERED: TOBRAMYCIN IV PER PHARMACY XX (10:30)
[2018-09-14] MEDS: LEVOFLOXACIN 500MG/D5W (PMX) 100 ML IVPB (13:18)
[2018-09-14] MEDS: TOBRAMYCIN IVPB (15:50)
[2018-09-14] MEDS: SOD CHLORIDE 0.9% IVPB (15:50)
[2018-09-14] MEDS: DOXYCYCLINE 100 MG in SOD CHLORIDE 0.9% 250 ML IVPB (21:48)
[2018-09-15] MEDS: ACETAMINOPHEN 650MG/20.3ML CUP GTB (00:22)
[2018-09-15] MEDS: LANSOPRAZOLE 30 MG CAP GTB (05:58)
[2018-09-15] MEDS: INSULIN ASPART [NOVOLOG] 3 ML PEN SC ×4 (05:58→17:13)
[2018-09-15] MEDS: metroNIDAZOLE 500 MG TAB PO ×3 (05:59→22:11)
[2018-09-15] MEDS: IPRATROPIUM (HFA) 12.9 GM INHALER INH ×3 (07:45→22:58)
[2018-09-15] MEDS: LEVALBUTEROL (HFA) 15 GM INHALER INH ×3 (07:45→22:59)
[2018-09-15] MEDS: DESMOPRESSIN 0.1 MG TAB GTB ×2 (08:36→20:35)
[2018-09-15] MEDS: ASPIRIN 81 MG TAB GTB (08:36)
[2018-09-15] MEDS: ASCORBIC ACID 500 MG TAB GTB (08:36)
[2018-09-15] MEDS: MULTIVITAMINS 30 ML CUP GTB (08:36)
[2018-09-15] MEDS: GABAPENTIN 300 MG CAP GTB ×2 (08:36→20:36)
[2018-09-15] MEDS: ZINC SULFATE 220 MG CAP GTB (08:36)
[2018-09-15] MEDS: FLUCONAZOLE 100 MG TAB PO (08:36)
[2018-09-15] MEDS: SILVER SULFADIAZINE 1% 400 GM CR TOP ×2 (08:37→20:56)
[2018-09-15] MEDS: DOXYCYCLINE 100 MG in SOD CHLORIDE 0.9% 250 ML IVPB ×2 (08:40→20:54)
[2018-09-15] MEDS: ENOXAPARIN 30 MG/0.3 ML SYG SC (08:51)
[2018-09-15] MEDS: FUROSEMIDE 20 MG INJ IV ×2 (08:52→20:36)
[2018-09-15] MEDS: LEVOFLOXACIN 500MG/D5W (PMX) 100 ML IVPB (10:13)
[2018-09-16] MEDS: SOD CHLORIDE 0.45% 1,000 ML IV (02:18)
[2018-09-16] MEDS: TOBRAMYCIN IVPB (03:09)
[2018-09-16] MEDS: SOD CHLORIDE 0.9% IVPB (03:09)
[2018-09-16] MEDS: LANSOPRAZOLE 30 MG CAP GTB (05:47)
[2018-09-16] MEDS: metroNIDAZOLE 500 MG TAB PO ×3 (05:47→21:11)
[2018-09-16] MEDS: INSULIN ASPART [NOVOLOG] 3 ML PEN SC ×4 (05:50→17:28)
[2018-09-16] MEDS: LEVALBUTEROL (HFA) 15 GM INHALER INH ×4 (07:53→23:10)
[2018-09-16] MEDS: IPRATROPIUM (HFA) 12.9 GM INHALER INH ×4 (07:53→23:10)
[2018-09-16] MEDS: POTASSIUM CHLORIDE 100 ML IVPB ×4 (08:30→19:27)
[2018-09-16] MEDS: ZINC SULFATE 220 MG CAP GTB (08:54)
[2018-09-16] MEDS: GABAPENTIN 300 MG CAP GTB ×2 (08:54→21:11)
[2018-09-16] MEDS: ASCORBIC ACID 500 MG TAB GTB (08:54)
[2018-09-16] MEDS: DESMOPRESSIN 0.1 MG TAB GTB ×2 (08:54→21:11)
[2018-09-16] MEDS: ASPIRIN 81 MG TAB GTB (08:54)
[2018-09-16] MEDS: FUROSEMIDE 20 MG INJ IV ×2 (08:55→21:12)
[2018-09-16] MEDS: MULTIVITAMINS 30 ML CUP GTB (08:55)
[2018-09-16] MEDS: FLUCONAZOLE 100 MG TAB PO (08:55)
[2018-09-16] MEDS: SILVER SULFADIAZINE 1% 400 GM CR TOP ×2 (08:56→21:12)
[2018-09-16] MEDS: DOXYCYCLINE 100 MG in SOD CHLORIDE 0.9% 250 ML IVPB ×2 (09:00→21:28)
[2018-09-16] MEDS: ENOXAPARIN 30 MG/0.3 ML SYG SC (09:09)
[2018-09-17] MEDS: INSULIN ASPART [NOVOLOG] 3 ML PEN SC ×4 (05:51→17:40)
[2018-09-17] MEDS: metroNIDAZOLE 500 MG TAB PO ×3 (05:51→21:51)
[2018-09-17] MEDS: LANSOPRAZOLE 30 MG CAP GTB (05:51)
[2018-09-17] MEDS: LEVALBUTEROL (HFA) 15 GM INHALER INH ×3 (08:10→23:28)
[2018-09-17] MEDS: IPRATROPIUM (HFA) 12.9 GM INHALER INH ×3 (08:10→23:28)
[2018-09-17] MEDS: LEVOFLOXACIN 250MG/D5W (PMX) 50 ML IVPB (09:06)
[2018-09-17] MEDS: ZINC SULFATE 220 MG CAP GTB (09:11)
[2018-09-17] MEDS: DESMOPRESSIN 0.1 MG TAB GTB ×2 (09:11→21:51)
[2018-09-17] MEDS: ASCORBIC ACID 500 MG TAB GTB (09:11)
[2018-09-17] MEDS: MULTIVITAMINS 30 ML CUP GTB (09:12)
[2018-09-17] MEDS: FLUCONAZOLE 100 MG TAB PO (09:12)
[2018-09-17] MEDS: ASPIRIN 81 MG TAB GTB (09:12)
[2018-09-17] MEDS: GABAPENTIN 300 MG CAP GTB ×2 (09:12→21:51)
[2018-09-17] MEDS: FUROSEMIDE 20 MG INJ IV ×2 (09:13→21:00)
[2018-09-17] MEDS: ENOXAPARIN 30 MG/0.3 ML SYG SC (09:20)
[2018-09-17] MEDS: SILVER SULFADIAZINE 1% 400 GM CR TOP ×2 (09:25→21:00)
[2018-09-17] MEDS: DOXYCYCLINE 100 MG in SOD CHLORIDE 0.9% 250 ML IVPB ×2 (10:35→21:54)
[2018-09-17] MEDS: LORAZEPAM 2 MG INJ IV (11:09)
[2018-09-17] MEDS: SOD CHLORIDE 0.9% IVPB (16:20)
[2018-09-17] MEDS: TOBRAMYCIN IVPB (16:20)
[2018-09-18] MEDS: TOBRAMYCIN IVPB (05:02)
[2018-09-18] MEDS: SOD CHLORIDE 0.9% IVPB (05:02)
[2018-09-18] MEDS: LANSOPRAZOLE 30 MG CAP GTB (05:22)
[2018-09-18] MEDS: metroNIDAZOLE 500 MG TAB PO ×3 (05:22→21:43)
[2018-09-18] MEDS: INSULIN ASPART [NOVOLOG] 3 ML PEN SC ×4 (05:23→17:07)
[2018-09-18] MEDS: IPRATROPIUM (HFA) 12.9 GM INHALER INH ×3 (08:50→23:24)
[2018-09-18] MEDS: LEVALBUTEROL (HFA) 15 GM INHALER INH ×3 (08:51→23:24)
[2018-09-18] MEDS: DOXYCYCLINE 100 MG in SOD CHLORIDE 0.9% 250 ML IVPB ×2 (09:26→21:48)
[2018-09-18] MEDS: ASPIRIN 81 MG TAB GTB (09:28)
[2018-09-18] MEDS: GABAPENTIN 300 MG CAP GTB ×2 (09:28→21:43)
[2018-09-18] MEDS: FLUCONAZOLE 100 MG TAB PO (09:28)
[2018-09-18] MEDS: ASCORBIC ACID 500 MG TAB GTB (09:28)
[2018-09-18] MEDS: DESMOPRESSIN 0.1 MG TAB GTB ×2 (09:28→21:42)
[2018-09-18] MEDS: FUROSEMIDE 20 MG INJ IV ×2 (09:29→21:51)
[2018-09-18] MEDS: MULTIVITAMIN DAILY XX ×2 (09:30→17:05)
[2018-09-18] MEDS: GABAPENTIN XX ×2 (09:30→17:05)
[2018-09-18] MEDS: VITAMIN C XX ×2 (09:30→17:05)
[2018-09-18] MEDS: [UNRECOGNIZED DRUG - OTHER] XX ×2 (09:30→17:05)
[2018-09-18] MEDS: SILVER SULFADIAZINE 1% 400 GM CR TOP ×2 (09:30→21:51)
[2018-09-18] MEDS: ENOXAPARIN 30 MG/0.3 ML SYG SC (09:33)
[2018-09-18] MEDS: LEVOFLOXACIN 250MG/D5W (PMX) 50 ML IVPB (09:35)
[2018-09-18] MEDS: ZINC SULFATE 220 MG CAP GTB (09:48)
[2018-09-18] MEDS: MULTIVITAMINS 30 ML CUP GTB (09:48)
[2018-09-19] MEDS: MULTIVITAMIN DAILY XX ×3 (01:30→16:34)
[2018-09-19] MEDS: VITAMIN C XX ×3 (01:30→16:34)
[2018-09-19] MEDS: GABAPENTIN XX ×3 (01:30→16:34)
[2018-09-19] MEDS: [UNRECOGNIZED DRUG - OTHER] XX ×3 (01:30→16:34)
[2018-09-19] MEDS: LANSOPRAZOLE 30 MG CAP GTB (05:42)
[2018-09-19] MEDS: metroNIDAZOLE 500 MG TAB PO ×3 (05:42→21:06)
[2018-09-19] MEDS: INSULIN ASPART [NOVOLOG] 3 ML PEN SC ×5 (05:45→23:24)
[2018-09-19] MEDS: LEVALBUTEROL (HFA) 15 GM INHALER INH ×3 (07:37→23:34)
[2018-09-19] MEDS: IPRATROPIUM (HFA) 12.9 GM INHALER INH ×3 (07:37→23:34)
[2018-09-19] MEDS: ASPIRIN 81 MG TAB GTB (09:18)
[2018-09-19] MEDS: ASCORBIC ACID 500 MG TAB GTB (09:18)
[2018-09-19] MEDS: FUROSEMIDE 20 MG INJ IV ×2 (09:18→21:07)
[2018-09-19] MEDS: FLUCONAZOLE 100 MG TAB PO (09:19)
[2018-09-19] MEDS: ZINC SULFATE 220 MG CAP GTB (09:19)
[2018-09-19] MEDS: DESMOPRESSIN 0.1 MG TAB GTB ×2 (09:19→20:32)
[2018-09-19] MEDS: MULTIVITAMINS 30 ML CUP GTB (09:19)
[2018-09-19] MEDS: SILVER SULFADIAZINE 1% 400 GM CR TOP ×2 (09:19→20:34)
[2018-09-19] MEDS: GABAPENTIN 300 MG CAP GTB ×2 (09:19→20:32)
[2018-09-19] MEDS: LEVOFLOXACIN 250MG/D5W (PMX) 50 ML IVPB (09:23)
[2018-09-19] MEDS: ENOXAPARIN 30 MG/0.3 ML SYG SC (09:50)
[2018-09-19] MEDS: DOXYCYCLINE 100 MG in SOD CHLORIDE 0.9% 250 ML IVPB ×2 (10:46→20:33)
[2018-09-19] MEDS: HYDROCORTISONE 1% 28.35 GM OINT TOP ×2 (13:00→20:32)
[2018-09-20] MEDS: GABAPENTIN XX ×3 (01:09→17:22)
[2018-09-20] MEDS: VITAMIN C XX ×3 (01:09→17:22)
[2018-09-20] MEDS: [UNRECOGNIZED DRUG - OTHER] XX ×3 (01:09→17:22)
[2018-09-20] MEDS: MULTIVITAMIN DAILY XX ×3 (01:09→17:22)
[2018-09-20] MEDS: metroNIDAZOLE 500 MG TAB PO ×3 (05:03→22:16)
[2018-09-20] MEDS: LANSOPRAZOLE 30 MG CAP GTB (05:03)
[2018-09-20] MEDS: SOD CHLORIDE 0.9% IVPB (05:03)
[2018-09-20] MEDS: TOBRAMYCIN IVPB (05:03)
[2018-09-20] MEDS: INSULIN ASPART [NOVOLOG] 3 ML PEN SC ×3 (05:15→17:39)
[2018-09-20] MEDS: LEVALBUTEROL (HFA) 15 GM INHALER INH ×2 (08:40→15:46)
[2018-09-20] MEDS: IPRATROPIUM (HFA) 12.9 GM INHALER INH ×2 (08:40→15:46)
[2018-09-20] MEDS: MULTIVITAMINS 30 ML CUP GTB (08:47)
[2018-09-20] MEDS: ZINC SULFATE 220 MG CAP GTB (08:47)
[2018-09-20] MEDS: DESMOPRESSIN 0.1 MG TAB GTB ×2 (08:47→22:16)
[2018-09-20] MEDS: FLUCONAZOLE 100 MG TAB PO (08:47)
[2018-09-20] MEDS: ASPIRIN 81 MG TAB GTB (08:47)
[2018-09-20] MEDS: ASCORBIC ACID 500 MG TAB GTB (08:47)
[2018-09-20] MEDS: DOXYCYCLINE 100 MG in SOD CHLORIDE 0.9% 250 ML IVPB ×2 (08:49→22:26)
[2018-09-20] MEDS: SILVER SULFADIAZINE 1% 400 GM CR TOP ×2 (08:51→22:19)
[2018-09-20] MEDS: HYDROCORTISONE 1% 28.35 GM OINT TOP ×3 (08:51→22:16)
[2018-09-20] MEDS: GABAPENTIN 300 MG CAP GTB ×2 (08:56→22:16)
[2018-09-20] MEDS: FUROSEMIDE 20 MG INJ IV ×2 (08:56→22:17)
[2018-09-20] MEDS: LEVOFLOXACIN 250MG/D5W (PMX) 50 ML IVPB (10:27)
[2018-09-20] MEDS: POTASSIUM CHLORIDE 20 MEQ POWDER FOR ORAL SOLN GTB (10:27)
[2018-09-21] MEDS: LEVALBUTEROL (HFA) 15 GM INHALER INH ×3 (00:11→17:09)
[2018-09-21] MEDS: IPRATROPIUM (HFA) 12.9 GM INHALER INH ×3 (00:11→17:09)
[2018-09-21] MEDS: INSULIN ASPART [NOVOLOG] 3 ML PEN SC ×4 (01:09→17:25)
[2018-09-21] MEDS: [UNRECOGNIZED DRUG - OTHER] XX ×3 (01:30→16:59)
[2018-09-21] MEDS: VITAMIN C XX ×3 (01:30→16:59)
[2018-09-21] MEDS: GABAPENTIN XX ×3 (01:30→16:59)
[2018-09-21] MEDS: MULTIVITAMIN DAILY XX ×3 (01:30→16:59)
[2018-09-21] MEDS: metroNIDAZOLE 500 MG TAB PO ×2 (05:21→13:27)
[2018-09-21] MEDS: LANSOPRAZOLE 30 MG CAP GTB (05:21)
[2018-09-21] MEDS: FLUCONAZOLE 100 MG TAB PO (08:37)
[2018-09-21] MEDS: FUROSEMIDE 20 MG INJ IV ×2 (08:37→21:00)
[2018-09-21] MEDS: DESMOPRESSIN 0.1 MG TAB GTB ×2 (08:37→21:07)
[2018-09-21] MEDS: MULTIVITAMINS 30 ML CUP GTB (08:37)
[2018-09-21] MEDS: ASPIRIN 81 MG TAB GTB (08:37)
[2018-09-21] MEDS: GABAPENTIN 300 MG CAP GTB ×2 (08:38→21:07)
[2018-09-21] MEDS: ASCORBIC ACID 500 MG TAB GTB (08:38)
[2018-09-21] MEDS: HYDROCORTISONE 1% 28.35 GM OINT TOP ×2 (08:38→13:27)
[2018-09-21] MEDS: ZINC SULFATE 220 MG CAP GTB (08:38)
[2018-09-21] MEDS: SILVER SULFADIAZINE 1% 400 GM CR TOP (08:43)
[2018-09-21] MEDS: DOXYCYCLINE 100 MG in SOD CHLORIDE 0.9% 250 ML IVPB ×2 (08:53→20:42)
[2018-09-21] MEDS: LEVOFLOXACIN 250MG/D5W (PMX) 50 ML IVPB (10:43)
[2018-09-21] MEDS: SOD CHLORIDE 0.9% 1,000 ML IV (21:08)
[2018-09-21] MEDS ORDERED: NORepinephrine 8MG/250 ML (PMX 250 ML (22:09)
[2018-09-22] MEDS: LEVALBUTEROL (HFA) 15 GM INHALER INH ×4 (00:36→23:37)
[2018-09-22] MEDS: metroNIDAZOLE 500 MG TAB PO ×4 (02:13→14:02)
[2018-09-22] MEDS: SILVER SULFADIAZINE 1% 25 GM CR TOP ×3 (02:14→20:25)
[2018-09-22] MEDS: HYDROCORTISONE 1% 28.35 GM OINT TOP ×4 (02:14→20:25)
[2018-09-22] MEDS: NORepinephrine 8MG/250 ML (PMX 250 ML IV ×2 (02:29→21:23)
[2018-09-22] MEDS: INSULIN ASPART [NOVOLOG] 3 ML PEN SC ×4 (05:19→18:00)
[2018-09-22] MEDS: LANSOPRAZOLE 30 MG CAP GTB (05:20)
[2018-09-22] MEDS: IPRATROPIUM (HFA) 12.9 GM INHALER INH ×4 (08:00→23:37)
[2018-09-22] MEDS: MULTIVITAMINS 30 ML CUP GTB (08:39)
[2018-09-22] MEDS: ASCORBIC ACID 500 MG TAB GTB (08:40)
[2018-09-22] MEDS: ZINC SULFATE 220 MG CAP GTB (08:40)
[2018-09-22] MEDS: ASPIRIN 81 MG TAB GTB (08:40)
[2018-09-22] MEDS: GABAPENTIN 300 MG CAP GTB ×2 (08:40→20:23)
[2018-09-22] MEDS: DESMOPRESSIN 0.1 MG TAB GTB ×2 (08:40→20:23)
[2018-09-22] MEDS: FUROSEMIDE 20 MG INJ IV ×2 (08:40→20:24)
[2018-09-22] MEDS: DOXYCYCLINE 100 MG in SOD CHLORIDE 0.9% 250 ML IVPB ×2 (08:43→20:23)
[2018-09-22] MEDS: FLUCONAZOLE 100 MG TAB PO (09:00)
[2018-09-22] MEDS: MULTIVITAMIN DAILY XX (09:30)
[2018-09-22] MEDS: [UNRECOGNIZED DRUG - OTHER] XX (09:30)
[2018-09-22] MEDS: VITAMIN C XX (09:30)
[2018-09-22] MEDS: GABAPENTIN XX (09:30)
[2018-09-22] MEDS: LEVOFLOXACIN 250MG/D5W (PMX) 50 ML IVPB (11:56)
[2018-09-22] MEDS: ACETAMINOPHEN 650MG/20.3ML CUP GTB (14:22)
[2018-09-23] MEDS: SOD CHLORIDE 0.9% IVPB (05:21)
[2018-09-23] MEDS: LANSOPRAZOLE 30 MG CAP GTB (05:21)
[2018-09-23] MEDS: TOBRAMYCIN IVPB (05:21)
[2018-09-23] MEDS: metroNIDAZOLE 500 MG TAB PO ×3 (05:21→22:14)
[2018-09-23] MEDS: INSULIN ASPART [NOVOLOG] 3 ML PEN SC ×4 (05:28→16:43)
[2018-09-23] MEDS: IPRATROPIUM (HFA) 12.9 GM INHALER INH ×3 (08:41→23:17)
[2018-09-23] MEDS: LEVALBUTEROL (HFA) 15 GM INHALER INH ×3 (08:41→23:17)
[2018-09-23] MEDS: MULTIVITAMINS 30 ML CUP GTB (09:30)
[2018-09-23] MEDS: DESMOPRESSIN 0.1 MG TAB GTB ×2 (09:30→20:57)
[2018-09-23] MEDS: ZINC SULFATE 220 MG CAP GTB (09:31)
[2018-09-23] MEDS: FLUCONAZOLE 100 MG TAB PO (09:31)
[2018-09-23] MEDS: GABAPENTIN 300 MG CAP GTB ×2 (09:31→20:56)
[2018-09-23] MEDS: ASCORBIC ACID 500 MG TAB GTB (09:31)
[2018-09-23] MEDS: DOXYCYCLINE 100 MG in SOD CHLORIDE 0.9% 250 ML IVPB ×2 (09:31→21:13)
[2018-09-23] MEDS: ASPIRIN 81 MG TAB GTB (09:31)
[2018-09-23] MEDS: SILVER SULFADIAZINE 1% 25 GM CR TOP ×2 (09:32→21:05)
[2018-09-23] MEDS: HYDROCORTISONE 1% 28.35 GM OINT TOP ×3 (09:32→21:05)
[2018-09-23] MEDS: FUROSEMIDE 20 MG INJ IV ×2 (09:33→20:57)
[2018-09-23] MEDS: LEVOFLOXACIN 250MG/D5W (PMX) 50 ML IVPB (11:41)
[2018-09-23] MEDS: LIDOCAINE 1% (MPF) 5 ML VIAL SC (12:30)
[2018-09-23] MEDS: POTASSIUM CHLORIDE 100 ML IVPB ×4 (14:02→22:16)
[2018-09-23] MEDS: NORepinephrine 8MG/250 ML (PMX 250 ML IV (16:44)
[2018-09-23] MEDS: ACETAMINOPHEN 650MG/20.3ML CUP GTB (21:30)
[2018-09-24] MEDS: INSULIN ASPART [NOVOLOG] 3 ML PEN SC ×4 (00:26→18:00)
[2018-09-24] MEDS: metroNIDAZOLE 500 MG TAB PO ×3 (05:33→21:50)
[2018-09-24] MEDS: LANSOPRAZOLE 30 MG CAP GTB (05:33)
[2018-09-24] MEDS: IPRATROPIUM (HFA) 12.9 GM INHALER INH ×3 (07:42→23:18)
[2018-09-24] MEDS: LEVALBUTEROL (HFA) 15 GM INHALER INH ×3 (07:42→23:18)
[2018-09-24] MEDS: GABAPENTIN 300 MG CAP GTB ×2 (08:59→20:33)
[2018-09-24] MEDS: ZINC SULFATE 220 MG CAP GTB (08:59)
[2018-09-24] MEDS: ASPIRIN 81 MG TAB GTB (08:59)
[2018-09-24] MEDS: DESMOPRESSIN 0.1 MG TAB GTB ×2 (08:59→20:34)
[2018-09-24] MEDS: ASCORBIC ACID 500 MG TAB GTB (08:59)
[2018-09-24] MEDS: DOXYCYCLINE 100 MG in SOD CHLORIDE 0.9% 250 ML IVPB ×2 (08:59→20:34)
[2018-09-24] MEDS: MULTIVITAMINS 30 ML CUP GTB (09:00)
[2018-09-24] MEDS: FUROSEMIDE 20 MG INJ IV ×3 (09:00→20:33)
[2018-09-24] MEDS: FLUCONAZOLE 100 MG TAB PO (09:00)
[2018-09-24] MEDS: HYDROCORTISONE 1% 28.35 GM OINT TOP ×3 (09:01→20:34)
[2018-09-24] MEDS: SILVER SULFADIAZINE 1% 25 GM CR TOP ×2 (09:01→20:35)
[2018-09-24] MEDS: LEVOFLOXACIN 250MG/D5W (PMX) 50 ML IVPB (10:59)
[2018-09-24] MEDS: MAGNESIUM SULFATE 2 GM/50 ML 50 ML IVPB (13:33)
[2018-09-24] MEDS: COLLAGENASE 5 GM (UD JAR) TOP (13:33)
[2018-09-25] MEDS: ACETAMINOPHEN 650MG/20.3ML CUP GTB ×2 (00:41→20:37)
[2018-09-25] MEDS: LANSOPRAZOLE 30 MG CAP GTB (05:21)
[2018-09-25] MEDS: metroNIDAZOLE 500 MG TAB PO ×3 (05:21→23:12)
[2018-09-25] MEDS: INSULIN ASPART [NOVOLOG] 3 ML PEN SC ×4 (05:42→17:25)
[2018-09-25] MEDS: IPRATROPIUM (HFA) 12.9 GM INHALER INH ×2 (08:10→16:00)
[2018-09-25] MEDS: LEVALBUTEROL (HFA) 15 GM INHALER INH ×2 (08:10→16:00)
[2018-09-25] MEDS: GABAPENTIN 300 MG CAP GTB ×2 (09:07→20:36)
[2018-09-25] MEDS: FLUCONAZOLE 100 MG TAB PO (09:07)
[2018-09-25] MEDS: FUROSEMIDE 20 MG INJ IV (09:07)
[2018-09-25] MEDS: DESMOPRESSIN 0.1 MG TAB GTB ×2 (09:07→20:36)
[2018-09-25] MEDS: MULTIVITAMINS 30 ML CUP GTB (09:07)
[2018-09-25] MEDS: ASPIRIN 81 MG TAB GTB (09:07)
[2018-09-25] MEDS: ZINC SULFATE 220 MG CAP GTB (09:07)
[2018-09-25] MEDS: DOXYCYCLINE 100 MG in SOD CHLORIDE 0.9% 250 ML IVPB ×2 (09:11→21:00)
[2018-09-25] MEDS: HYDROCORTISONE 1% 28.35 GM OINT TOP ×3 (09:11→20:36)
[2018-09-25] MEDS: SILVER SULFADIAZINE 1% 25 GM CR TOP ×2 (09:11→20:37)
[2018-09-25] MEDS: ASCORBIC ACID 500 MG TAB GTB (09:15)
[2018-09-25] MEDS: HYDROCORTISONE 100 MG INJ IV ×3 (10:30→23:12)
[2018-09-25] MEDS: LEVOFLOXACIN 250MG/D5W (PMX) 50 ML IVPB (10:30)
[2018-09-25] MEDS: NORepinephrine 8MG/250 ML (PMX 250 ML IV (11:36)
[2018-09-26] MEDS: LEVALBUTEROL (HFA) 15 GM INHALER INH ×4 (01:23→23:05)
[2018-09-26] MEDS: IPRATROPIUM (HFA) 12.9 GM INHALER INH ×4 (01:23→23:05)
[2018-09-26] MEDS: INSULIN ASPART [NOVOLOG] 3 ML PEN SC ×4 (01:56→17:59)
[2018-09-26] MEDS: ACETAMINOPHEN 650MG/20.3ML CUP GTB ×2 (04:15→08:29)
[2018-09-26] MEDS: SOD CHLORIDE 0.9% IVPB (05:00)
[2018-09-26] MEDS: TOBRAMYCIN IVPB (05:00)
[2018-09-26] MEDS: metroNIDAZOLE 500 MG TAB PO ×2 (05:46→13:53)
[2018-09-26] MEDS: HYDROCORTISONE 100 MG INJ IV ×3 (05:46→21:00)
[2018-09-26] MEDS: LANSOPRAZOLE 30 MG CAP GTB (06:00)
[2018-09-26] MEDS: ASCORBIC ACID 500 MG TAB GTB (08:27)
[2018-09-26] MEDS: MULTIVITAMINS 30 ML CUP GTB (08:27)
[2018-09-26] MEDS: ZINC SULFATE 220 MG CAP GTB (08:28)
[2018-09-26] MEDS: FLUCONAZOLE 100 MG TAB PO (08:28)
[2018-09-26] MEDS: ASPIRIN 81 MG TAB GTB (08:28)
[2018-09-26] MEDS: DESMOPRESSIN 0.1 MG TAB GTB ×2 (08:29→20:50)
[2018-09-26] MEDS: GABAPENTIN 300 MG CAP GTB ×2 (08:30→20:50)
[2018-09-26] MEDS: FUROSEMIDE 20 MG INJ IV (08:30)
[2018-09-26] MEDS: SILVER SULFADIAZINE 1% 25 GM CR TOP ×2 (08:31→20:52)
[2018-09-26] MEDS: HYDROCORTISONE 1% 28.35 GM OINT TOP ×3 (08:31→20:52)
[2018-09-26] MEDS: DOXYCYCLINE 100 MG in SOD CHLORIDE 0.9% 250 ML IVPB (08:52)
[2018-09-26] MEDS: LEVOFLOXACIN 250MG/D5W (PMX) 50 ML IVPB (10:33)
[2018-09-26] MEDS: INSULIN GLARGINE [LANTus] (100 UNITS/ML) SYG SC (10:37)
[2018-09-27] MEDS: INSULIN ASPART [NOVOLOG] 3 ML PEN SC ×5 (00:48→23:38)
[2018-09-27] MEDS: HYDROCORTISONE 100 MG INJ IV ×3 (05:53→21:08)
[2018-09-27] MEDS: LANSOPRAZOLE 30 MG CAP GTB (05:53)
[2018-09-27] MEDS: IPRATROPIUM (HFA) 12.9 GM INHALER INH ×3 (08:30→23:24)
[2018-09-27] MEDS: LEVALBUTEROL (HFA) 15 GM INHALER INH ×3 (08:50→23:25)
[2018-09-27] MEDS: POTASSIUM CHLORIDE (SR) 20 MEQ TAB PO (09:08)
[2018-09-27] MEDS: ASPIRIN 81 MG TAB GTB (09:08)
[2018-09-27] MEDS: ASCORBIC ACID 500 MG TAB GTB (09:09)
[2018-09-27] MEDS: FUROSEMIDE 20 MG INJ IV (09:09)
[2018-09-27] MEDS: GABAPENTIN 300 MG CAP GTB ×2 (09:09→21:31)
[2018-09-27] MEDS: DESMOPRESSIN 0.1 MG TAB GTB ×2 (09:09→21:07)
[2018-09-27] MEDS: MULTIVITAMINS 30 ML CUP GTB (09:09)
[2018-09-27] MEDS: ZINC SULFATE 220 MG CAP GTB (09:09)
[2018-09-27] MEDS: SILVER SULFADIAZINE 1% 25 GM CR TOP ×2 (09:10→21:09)
[2018-09-27] MEDS: HYDROCORTISONE 1% 28.35 GM OINT TOP ×3 (09:10→21:09)
[2018-09-27] MEDS: ACETAMINOPHEN 650MG/20.3ML CUP GTB (21:08)
[2018-09-28] MEDS: HYDROCORTISONE 100 MG INJ IV ×3 (05:54→21:54)
[2018-09-28] MEDS: LANSOPRAZOLE 30 MG CAP GTB (06:12)
[2018-09-28] MEDS: INSULIN ASPART [NOVOLOG] 3 ML PEN SC ×3 (06:16→17:49)
[2018-09-28] MEDS: LEVALBUTEROL (HFA) 15 GM INHALER INH ×2 (07:51→15:51)
[2018-09-28] MEDS: IPRATROPIUM (HFA) 12.9 GM INHALER INH ×2 (07:52→15:51)
[2018-09-28] MEDS: MULTIVITAMINS 30 ML CUP GTB (09:17)
[2018-09-28] MEDS: FUROSEMIDE 20 MG INJ IV (09:17)
[2018-09-28] MEDS: ASCORBIC ACID 500 MG TAB GTB (09:18)
[2018-09-28] MEDS: DESMOPRESSIN 0.1 MG TAB GTB ×2 (09:18→20:42)
[2018-09-28] MEDS: GABAPENTIN 300 MG CAP GTB ×2 (09:18→20:43)
[2018-09-28] MEDS: SILVER SULFADIAZINE 1% 25 GM CR TOP ×2 (09:19→20:42)
[2018-09-28] MEDS: ZINC SULFATE 220 MG CAP GTB (09:19)
[2018-09-28] MEDS: ASPIRIN 81 MG TAB GTB (09:19)
[2018-09-28] MEDS: HYDROCORTISONE 1% 28.35 GM OINT TOP ×3 (09:19→20:42)
[2018-09-28] MEDS: INSULIN GLARGINE [LANTus] (100 UNITS/ML) SYG SC (09:47)
[2018-09-28] MEDS: POTASSIUM CHLORIDE (SR) 20 MEQ TAB PO ×2 (12:38→20:43)
[2018-09-28] MEDS ORDERED: LOPERAMIDE (0.2 MG/ML PO SYG) PO (17:00)
[2018-09-28] MEDS ORDERED: LOPERAMIDE HCL 1 MG/5 ML LIQUID (10 ML UD CUP) PO (17:30)
[2018-09-28] MEDS ORDERED: LOPERAMIDE 2 MG CAP PO (17:30)
[2018-09-29] MEDS: INSULIN ASPART [NOVOLOG] 3 ML PEN SC ×4 (00:07→18:17)
[2018-09-29] MEDS: LEVALBUTEROL (HFA) 15 GM INHALER INH ×4 (00:53→23:30)
[2018-09-29] MEDS: IPRATROPIUM (HFA) 12.9 GM INHALER INH ×4 (00:53→23:30)
[2018-09-29] MEDS: HYDROCORTISONE 100 MG INJ IV ×3 (05:45→21:40)
[2018-09-29] MEDS: LANSOPRAZOLE 30 MG CAP GTB (05:45)
[2018-09-29] MEDS: ASPIRIN 81 MG TAB GTB (08:33)
[2018-09-29] MEDS: ZINC SULFATE 220 MG CAP GTB (08:33)
[2018-09-29] MEDS: MULTIVITAMINS 30 ML CUP GTB (08:33)
[2018-09-29] MEDS: GABAPENTIN 300 MG CAP GTB ×2 (08:34→20:57)
[2018-09-29] MEDS: FUROSEMIDE 20 MG INJ IV (08:34)
[2018-09-29] MEDS: ASCORBIC ACID 500 MG TAB GTB (08:35)
[2018-09-29] MEDS: POTASSIUM CHLORIDE (SR) 20 MEQ TAB PO ×2 (08:35→20:57)
[2018-09-29] MEDS: DESMOPRESSIN 0.1 MG TAB GTB ×2 (08:35→20:58)
[2018-09-29] MEDS: SILVER SULFADIAZINE 1% 25 GM CR TOP ×2 (08:36→20:57)
[2018-09-29] MEDS: HYDROCORTISONE 1% 28.35 GM OINT TOP ×3 (08:37→20:57)
[2018-09-29] MEDS: INSULIN GLARGINE [LANTus] (100 UNITS/ML) SYG SC (09:02)
[2018-09-30] MEDS: INSULIN ASPART [NOVOLOG] 3 ML PEN SC ×4 (00:32→19:01)
[2018-09-30] MEDS: HYDROCORTISONE 100 MG INJ IV ×3 (06:07→21:57)
[2018-09-30] MEDS: LANSOPRAZOLE 30 MG CAP GTB (06:07)
[2018-09-30] MEDS: MULTIVITAMINS 30 ML CUP GTB (08:29)
[2018-09-30] MEDS: FUROSEMIDE 20 MG INJ IV (08:29)
[2018-09-30] MEDS: ZINC SULFATE 220 MG CAP GTB (08:29)
[2018-09-30] MEDS: GABAPENTIN 300 MG CAP GTB ×2 (08:29→20:53)
[2018-09-30] MEDS: ASCORBIC ACID 500 MG TAB GTB (08:30)
[2018-09-30] MEDS: POTASSIUM CHLORIDE (SR) 20 MEQ TAB PO ×2 (08:30→20:53)
[2018-09-30] MEDS: HYDROCORTISONE 1% 28.35 GM OINT TOP ×3 (08:30→20:53)
[2018-09-30] MEDS: ASPIRIN 81 MG TAB GTB (08:30)
[2018-09-30] MEDS: DESMOPRESSIN 0.1 MG TAB GTB ×2 (08:30→20:52)
[2018-09-30] MEDS: SILVER SULFADIAZINE 1% 25 GM CR TOP (08:31)
[2018-09-30] MEDS: LEVALBUTEROL (HFA) 15 GM INHALER INH (08:48)
[2018-09-30] MEDS: IPRATROPIUM (HFA) 12.9 GM INHALER INH (08:48)
[2018-09-30] MEDS: INSULIN GLARGINE [LANTus] (100 UNITS/ML) SYG SC (08:59)
[2018-09-30] MEDS: LOPERAMIDE HCL 1 MG/5 ML LIQUID (10 ML UD CUP) GTB (14:39)
[2018-10-01] MEDS: INSULIN ASPART [NOVOLOG] 3 ML PEN SC ×4 (00:40→17:55)
[2018-10-01] MEDS: LANSOPRAZOLE 30 MG CAP GTB (06:07)
[2018-10-01] MEDS: HYDROCORTISONE 100 MG INJ IV ×3 (06:07→21:47)
[2018-10-01] MEDS: LEVALBUTEROL (HFA) 15 GM INHALER INH ×3 (07:43→23:14)
[2018-10-01] MEDS: IPRATROPIUM (HFA) 12.9 GM INHALER INH ×3 (07:44→23:14)
[2018-10-01] MEDS: DESMOPRESSIN 0.1 MG TAB GTB ×2 (09:06→21:47)
[2018-10-01] MEDS: MULTIVITAMINS 30 ML CUP GTB (09:06)
[2018-10-01] MEDS: GABAPENTIN 300 MG CAP GTB ×2 (09:06→21:47)
[2018-10-01] MEDS: POTASSIUM CHLORIDE (SR) 20 MEQ TAB PO ×2 (09:07→21:47)
[2018-10-01] MEDS: ASCORBIC ACID 500 MG TAB GTB (09:07)
[2018-10-01] MEDS: COLLAGENASE 5 GM (UD JAR) TOP (09:08)
[2018-10-01] MEDS: FUROSEMIDE 20 MG INJ IV (09:09)
[2018-10-01] MEDS: HYDROCORTISONE 1% 28.35 GM OINT TOP ×3 (09:09→21:48)
[2018-10-01] MEDS: ASPIRIN 81 MG TAB GTB (09:43)
[2018-10-01] MEDS: INSULIN GLARGINE [LANTus] (100 UNITS/ML) SYG SC (10:23)
[2018-10-01] MEDS: LORAZEPAM 2 MG INJ IV ×2 (12:01→18:35)
[2018-10-01] MEDS: POTASSIUM CHLORIDE 20 MEQ POWDER FOR ORAL SOLN GTB (17:34)
[2018-10-02] MEDS: INSULIN ASPART [NOVOLOG] 3 ML PEN SC ×4 (01:30→18:40)
[2018-10-02] MEDS: LORAZEPAM 2 MG INJ IV (06:02)
[2018-10-02] MEDS: HYDROCORTISONE 100 MG INJ IV ×3 (06:02→21:53)
[2018-10-02] MEDS: LANSOPRAZOLE 30 MG CAP GTB (06:02)
[2018-10-02] MEDS: IPRATROPIUM (HFA) 12.9 GM INHALER INH ×3 (08:17→23:31)
[2018-10-02] MEDS: LEVALBUTEROL (HFA) 15 GM INHALER INH ×3 (08:17→23:31)
[2018-10-02] MEDS: COLLAGENASE 5 GM (UD JAR) TOP (09:13)
[2018-10-02] MEDS: GABAPENTIN 300 MG CAP GTB ×2 (09:14→21:53)
[2018-10-02] MEDS: POTASSIUM CHLORIDE (SR) 20 MEQ TAB PO ×2 (09:14→21:54)
[2018-10-02] MEDS: MULTIVITAMINS 30 ML CUP GTB (09:14)
[2018-10-02] MEDS: ASPIRIN 81 MG TAB GTB (09:14)
[2018-10-02] MEDS: ASCORBIC ACID 500 MG TAB GTB (09:14)
[2018-10-02] MEDS: FUROSEMIDE 20 MG INJ IV (09:14)
[2018-10-02] MEDS: DESMOPRESSIN 0.1 MG TAB GTB ×2 (09:15→21:55)
[2018-10-02] MEDS: HYDROCORTISONE 1% 28.35 GM OINT TOP ×3 (09:16→21:55)
[2018-10-02] MEDS: LOPERAMIDE HCL 1 MG/5 ML LIQUID (10 ML UD CUP) GTB (11:02)
[2018-10-02] MEDS: INSULIN GLARGINE [LANTus] (100 UNITS/ML) SYG SC (13:18)
[2018-10-02] MEDS: morphine 2 MG INJ IV (22:19)
[2018-10-03] MEDS: INSULIN ASPART [NOVOLOG] 3 ML PEN SC ×4 (01:03→18:03)
[2018-10-03] MEDS: LANSOPRAZOLE 30 MG CAP GTB (06:36)
[2018-10-03] MEDS: HYDROCORTISONE 100 MG INJ IV ×3 (06:36→22:02)
[2018-10-03] MEDS: LEVALBUTEROL (HFA) 15 GM INHALER INH ×3 (08:37→23:30)
[2018-10-03] MEDS: IPRATROPIUM (HFA) 12.9 GM INHALER INH ×3 (08:37→23:30)
[2018-10-03] MEDS: INSULIN GLARGINE [LANTus] (100 UNITS/ML) SYG SC (08:55)
[2018-10-03] MEDS: DESMOPRESSIN 0.1 MG TAB GTB ×2 (08:58→22:02)
[2018-10-03] MEDS: ASPIRIN 81 MG TAB GTB (08:58)
[2018-10-03] MEDS: GABAPENTIN 300 MG CAP GTB ×2 (08:58→22:01)
[2018-10-03] MEDS: MULTIVITAMINS 30 ML CUP GTB (08:59)
[2018-10-03] MEDS: COLLAGENASE 5 GM (UD JAR) TOP (08:59)
[2018-10-03] MEDS: ASCORBIC ACID 500 MG TAB GTB (08:59)
[2018-10-03] MEDS: POTASSIUM CHLORIDE (SR) 20 MEQ TAB PO ×2 (08:59→22:02)
[2018-10-03] MEDS: HYDROCORTISONE 1% 28.35 GM OINT TOP ×4 (09:00→22:03)
[2018-10-03] MEDS: FUROSEMIDE 20 MG INJ IV (09:04)
[2018-10-03] MEDS: CLONIDINE 0.1 MG/24 HR PATCH TRANSDERM (11:28)
[2018-10-03] MEDS: POTASSIUM CHLORIDE 100 ML IVPB ×2 (11:28→14:23)
[2018-10-03] MEDS: LOPERAMIDE HCL 1 MG/5 ML LIQUID (10 ML UD CUP) GTB (18:49)
[2018-10-03] MEDS: metroNIDAZOLE 250 MG TAB GTB ×2 (18:49→22:01)
[2018-10-03] MEDS: RIFAXIMIN 200 MG TAB PO (22:02)
[2018-10-04] MEDS: INSULIN ASPART [NOVOLOG] 3 ML PEN SC ×4 (02:10→17:38)
[2018-10-04] MEDS: LANSOPRAZOLE 30 MG CAP GTB (06:55)
[2018-10-04] MEDS: metroNIDAZOLE 250 MG TAB GTB ×3 (06:55→21:59)
[2018-10-04] MEDS: HYDROCORTISONE 100 MG INJ IV ×3 (06:55→21:58)
[2018-10-04] MEDS: GABAPENTIN 300 MG CAP GTB ×2 (08:35→21:58)
[2018-10-04] MEDS: MULTIVITAMINS 30 ML CUP GTB (08:35)
[2018-10-04] MEDS: RIFAXIMIN 200 MG TAB PO ×3 (08:35→21:58)
[2018-10-04] MEDS: POTASSIUM CHLORIDE (SR) 20 MEQ TAB PO ×2 (08:35→21:58)
[2018-10-04] MEDS: COLLAGENASE 5 GM (UD JAR) TOP (08:35)
[2018-10-04] MEDS: DESMOPRESSIN 0.1 MG TAB GTB ×2 (08:35→21:58)
[2018-10-04] MEDS: ASPIRIN 81 MG TAB GTB (08:35)
[2018-10-04] MEDS: ASCORBIC ACID 500 MG TAB GTB (08:35)
[2018-10-04] MEDS: FUROSEMIDE 20 MG INJ IV (08:36)
[2018-10-04] MEDS: HYDROCORTISONE 1% 28.35 GM OINT TOP ×3 (08:36→21:59)
[2018-10-04] MEDS: INSULIN GLARGINE [LANTus] (100 UNITS/ML) SYG SC (09:14)
[2018-10-04] MEDS: LEVALBUTEROL (HFA) 15 GM INHALER INH ×3 (09:36→23:37)
[2018-10-04] MEDS: IPRATROPIUM (HFA) 12.9 GM INHALER INH ×3 (09:36→23:37)
[2018-10-05] MEDS: INSULIN ASPART [NOVOLOG] 3 ML PEN SC ×4 (01:17→17:26)
[2018-10-05] MEDS: LANSOPRAZOLE 30 MG CAP GTB (06:48)
[2018-10-05] MEDS: metroNIDAZOLE 250 MG TAB GTB ×3 (06:48→22:21)
[2018-10-05] MEDS: HYDROCORTISONE 100 MG INJ IV ×3 (06:48→22:20)
[2018-10-05] MEDS: IPRATROPIUM (HFA) 12.9 GM INHALER INH ×3 (08:50→23:41)
[2018-10-05] MEDS: LEVALBUTEROL (HFA) 15 GM INHALER INH ×3 (08:50→23:41)
[2018-10-05] MEDS: ASCORBIC ACID 500 MG TAB GTB (09:03)
[2018-10-05] MEDS: LOPERAMIDE HCL 1 MG/5 ML LIQUID (10 ML UD CUP) GTB ×2 (09:03→15:07)
[2018-10-05] MEDS: COLLAGENASE 5 GM (UD JAR) TOP (09:03)
[2018-10-05] MEDS: MULTIVITAMINS 30 ML CUP GTB (09:03)
[2018-10-05] MEDS: GABAPENTIN 300 MG CAP GTB ×2 (09:04→22:21)
[2018-10-05] MEDS: RIFAXIMIN 200 MG TAB PO ×3 (09:04→22:20)
[2018-10-05] MEDS: ASPIRIN 81 MG TAB GTB (09:04)
[2018-10-05] MEDS: DESMOPRESSIN 0.1 MG TAB GTB (09:04)
[2018-10-05] MEDS: POTASSIUM CHLORIDE (SR) 20 MEQ TAB PO ×2 (09:04→22:21)
[2018-10-05] MEDS: HYDROCORTISONE 1% 28.35 GM OINT TOP ×3 (09:04→22:22)
[2018-10-05] MEDS: INSULIN GLARGINE [LANTus] (100 UNITS/ML) SYG SC (09:26)
[2018-10-05] MEDS: POTASSIUM CHLORIDE 100 ML IVPB ×2 (11:30→15:14)
[2018-10-05] MEDS: DIPHENHYDRAMINE 25 MG CAP GTB (15:07)
[2018-10-06] MEDS: INSULIN ASPART [NOVOLOG] 3 ML PEN SC ×5 (00:42→23:23)
[2018-10-06] MEDS: metroNIDAZOLE 250 MG TAB GTB ×3 (05:29→21:31)
[2018-10-06] MEDS: HYDROCORTISONE 100 MG INJ IV ×2 (05:29→21:31)
[2018-10-06] MEDS: LANSOPRAZOLE 30 MG CAP GTB (05:29)
[2018-10-06] MEDS: LEVALBUTEROL (HFA) 15 GM INHALER INH ×2 (08:58→16:30)
[2018-10-06] MEDS: IPRATROPIUM (HFA) 12.9 GM INHALER INH ×2 (08:58→16:30)
[2018-10-06] MEDS: GABAPENTIN 300 MG CAP GTB ×2 (09:10→21:31)
[2018-10-06] MEDS: MULTIVITAMINS 30 ML CUP GTB (09:10)
[2018-10-06] MEDS: COLLAGENASE 5 GM (UD JAR) TOP (09:10)
[2018-10-06] MEDS: HYDROCORTISONE 1% 28.35 GM OINT TOP ×3 (09:10→21:33)
[2018-10-06] MEDS: ACETAMINOPHEN 650MG/20.3ML CUP GTB (09:10)
[2018-10-06] MEDS: ASPIRIN 81 MG TAB GTB (09:11)
[2018-10-06] MEDS: RIFAXIMIN 200 MG TAB PO ×2 (09:11→14:01)
[2018-10-06] MEDS: ASCORBIC ACID 500 MG TAB GTB (09:11)
[2018-10-06] MEDS: POTASSIUM CHLORIDE (SR) 20 MEQ TAB PO ×2 (09:11→21:32)
[2018-10-06] MEDS: INSULIN GLARGINE [LANTus] (100 UNITS/ML) SYG SC (09:16)
[2018-10-06] MEDS: LORAZEPAM 2 MG INJ IV (18:04)
[2018-10-06] MEDS: CLOTRIMAZOLE 1% 45 GM VAG CR VAG (21:31)
[2018-10-06] MEDS: METOPROLOL 25 MG TAB PO (21:45)
[2018-10-07] MEDS: LEVALBUTEROL (HFA) 15 GM INHALER INH ×3 (00:44→15:29)
[2018-10-07] MEDS: IPRATROPIUM (HFA) 12.9 GM INHALER INH ×3 (00:44→15:28)
[2018-10-07] MEDS: LANSOPRAZOLE 30 MG CAP GTB (05:55)
[2018-10-07] MEDS: metroNIDAZOLE 250 MG TAB GTB ×2 (05:55→14:48)
[2018-10-07] MEDS: INSULIN ASPART [NOVOLOG] 3 ML PEN SC ×4 (06:08→23:20)
[2018-10-07] MEDS: MULTIVITAMINS 30 ML CUP GTB (10:06)
[2018-10-07] MEDS: ASCORBIC ACID 500 MG TAB GTB (10:06)
[2018-10-07] MEDS: HYDROCORTISONE 100 MG INJ IV ×2 (10:06→20:32)
[2018-10-07] MEDS: ASPIRIN 81 MG TAB GTB (10:07)
[2018-10-07] MEDS: COLLAGENASE 5 GM (UD JAR) TOP (10:07)
[2018-10-07] MEDS: GABAPENTIN 300 MG CAP GTB ×2 (10:07→20:32)
[2018-10-07] MEDS: METOPROLOL 25 MG TAB PO ×2 (10:07→20:34)
[2018-10-07] MEDS: POTASSIUM CHLORIDE (SR) 20 MEQ TAB PO ×2 (10:08→20:32)
[2018-10-07] MEDS: HYDROCORTISONE 1% 28.35 GM OINT TOP ×3 (10:08→20:33)
[2018-10-07] MEDS: INSULIN GLARGINE [LANTus] (100 UNITS/ML) SYG SC (10:11)
[2018-10-07] MEDS: D5W + KCL 20 MEQ 1,000 ML IV ×2 (10:22→23:24)
[2018-10-07] MEDS: LORAZEPAM 2 MG INJ IV (14:48)
[2018-10-07] MEDS: CLOTRIMAZOLE 1% 45 GM VAG CR VAG (20:33)
[2018-10-07] MEDS: DIPHENHYDRAMINE 25 MG CAP GTB (22:56)
[2018-10-08] MEDS: LEVALBUTEROL (HFA) 15 GM INHALER INH ×3 (01:17→15:28)
[2018-10-08] MEDS: IPRATROPIUM (HFA) 12.9 GM INHALER INH ×3 (01:17→15:28)
[2018-10-08] MEDS: LANSOPRAZOLE 30 MG CAP GTB (05:41)
[2018-10-08] MEDS: INSULIN ASPART [NOVOLOG] 3 ML PEN SC ×3 (05:47→18:00)
[2018-10-08] MEDS: COLLAGENASE 5 GM (UD JAR) TOP (09:12)
[2018-10-08] MEDS: POTASSIUM CHLORIDE (SR) 20 MEQ TAB PO ×2 (09:12→20:37)
[2018-10-08] MEDS: ASCORBIC ACID 500 MG TAB GTB (09:12)
[2018-10-08] MEDS: DESMOPRESSIN 0.1 MG TAB PEG ×3 (09:13→20:36)
[2018-10-08] MEDS: MULTIVITAMINS 30 ML CUP GTB (09:13)
[2018-10-08] MEDS: HYDROCORTISONE 100 MG INJ IV ×2 (09:13→20:36)
[2018-10-08] MEDS: METOPROLOL 25 MG TAB PO ×2 (09:13→20:37)
[2018-10-08] MEDS: GABAPENTIN 300 MG CAP GTB ×2 (09:13→20:42)
[2018-10-08] MEDS: ASPIRIN 81 MG TAB GTB (09:13)
[2018-10-08] MEDS: HYDROCORTISONE 1% 28.35 GM OINT TOP ×3 (09:14→20:38)
[2018-10-08] MEDS: INSULIN GLARGINE [LANTus] (100 UNITS/ML) SYG SC (09:44)
[2018-10-08] MEDS: CLOTRIMAZOLE 1% 45 GM VAG CR VAG (20:39)
[2018-10-08] MEDS: LORAZEPAM 2 MG INJ IV (22:15)
[2018-10-09] MEDS: INSULIN ASPART [NOVOLOG] 3 ML PEN SC ×5 (00:16→17:33)
[2018-10-09] MEDS: IPRATROPIUM (HFA) 12.9 GM INHALER INH ×4 (01:04→23:14)
[2018-10-09] MEDS: LEVALBUTEROL (HFA) 15 GM INHALER INH ×4 (01:05→23:14)
[2018-10-09] MEDS: LANSOPRAZOLE 30 MG CAP GTB (06:20)
[2018-10-09] MEDS: MULTIVITAMINS 30 ML CUP GTB (08:07)
[2018-10-09] MEDS: COLLAGENASE 5 GM (UD JAR) TOP (08:07)
[2018-10-09] MEDS: DESMOPRESSIN 0.1 MG TAB PEG ×3 (08:07→20:11)
[2018-10-09] MEDS: HYDROCORTISONE 100 MG INJ IV ×2 (08:07→20:09)
[2018-10-09] MEDS: ASCORBIC ACID 500 MG TAB GTB (08:07)
[2018-10-09] MEDS: GABAPENTIN 300 MG CAP GTB ×2 (08:07→20:10)
[2018-10-09] MEDS: DIPHENHYDRAMINE 25 MG CAP GTB ×2 (08:07→20:10)
[2018-10-09] MEDS: METOPROLOL 25 MG TAB PO ×2 (08:08→20:11)
[2018-10-09] MEDS: HYDROCORTISONE 1% 28.35 GM OINT TOP ×3 (08:08→20:12)
[2018-10-09] MEDS: ASPIRIN 81 MG TAB GTB (08:09)
[2018-10-09] MEDS: INSULIN GLARGINE [LANTus] (100 UNITS/ML) SYG SC (08:46)
[2018-10-09] MEDS: POTASSIUM CHLORIDE (SR) 20 MEQ TAB PO ×2 (10:09→20:10)
[2018-10-09] MEDS: FLUCONAZOLE 100 MG TAB PO (13:27)
[2018-10-09] MEDS: LORAZEPAM 2 MG INJ IV (20:09)
[2018-10-09] MEDS: CLOTRIMAZOLE 1% 45 GM VAG CR VAG (20:12)
[2018-10-10] MEDS: INSULIN ASPART [NOVOLOG] 3 ML PEN SC ×4 (00:26→17:02)
[2018-10-10] MEDS: LANSOPRAZOLE 30 MG CAP GTB (05:03)
[2018-10-10] MEDS: ACETAMINOPHEN 650MG/20.3ML CUP GTB (06:11)
[2018-10-10] MEDS: LORAZEPAM 2 MG INJ IV ×2 (08:13→18:01)
[2018-10-10] MEDS: HYDROCORTISONE 100 MG INJ IV ×2 (09:02→22:05)
[2018-10-10] MEDS: MULTIVITAMINS 30 ML CUP GTB (09:03)
[2018-10-10] MEDS: ASPIRIN 81 MG TAB GTB (09:03)
[2018-10-10] MEDS: GABAPENTIN 300 MG CAP GTB ×2 (09:03→22:00)
[2018-10-10] MEDS: FLUCONAZOLE 100 MG TAB PO (09:04)
[2018-10-10] MEDS: POTASSIUM CHLORIDE (SR) 20 MEQ TAB PO ×2 (09:04→21:59)
[2018-10-10] MEDS: DESMOPRESSIN 0.1 MG TAB PEG ×3 (09:04→22:00)
[2018-10-10] MEDS: METOPROLOL 25 MG TAB PO ×2 (09:04→22:01)
[2018-10-10] MEDS: HYDROCORTISONE 1% 28.35 GM OINT TOP ×3 (09:05→22:02)
[2018-10-10] MEDS: ASCORBIC ACID 500 MG TAB GTB (09:05)
[2018-10-10] MEDS: DIPHENHYDRAMINE 25 MG CAP GTB (09:44)
[2018-10-10] MEDS: COLLAGENASE 5 GM (UD JAR) TOP (09:44)
[2018-10-10] MEDS: IPRATROPIUM (HFA) 12.9 GM INHALER INH ×3 (09:47→23:26)
[2018-10-10] MEDS: LEVALBUTEROL (HFA) 15 GM INHALER INH ×3 (09:47→23:26)
[2018-10-10] MEDS: INSULIN GLARGINE [LANTus] (100 UNITS/ML) SYG SC (10:07)
[2018-10-10] MEDS: CLOTRIMAZOLE 1% 45 GM VAG CR VAG (22:04)
[2018-10-10] MEDS: POTASSIUM CHLORIDE 20 MEQ POWDER FOR ORAL SOLN GTB (22:45)
[2018-10-11] MEDS: D5W + KCL 20 MEQ 1,000 ML IV ×3 (00:06→23:26)
[2018-10-11] MEDS: DIPHENHYDRAMINE 25 MG CAP GTB (05:23)
[2018-10-11] MEDS: LANSOPRAZOLE 30 MG CAP GTB (05:23)
[2018-10-11] MEDS: INSULIN ASPART [NOVOLOG] 3 ML PEN SC ×5 (06:00→23:23)
[2018-10-11] MEDS: HYDROCORTISONE 1% 28.35 GM OINT TOP ×3 (09:09→22:08)
[2018-10-11] MEDS: POTASSIUM CHLORIDE 20 MEQ POWDER FOR ORAL SOLN GTB ×2 (09:09→22:04)
[2018-10-11] MEDS: DESMOPRESSIN 0.1 MG TAB PEG ×3 (09:10→22:04)
[2018-10-11] MEDS: ASPIRIN 81 MG TAB GTB (09:10)
[2018-10-11] MEDS: METOPROLOL 25 MG TAB PO ×2 (09:10→22:05)
[2018-10-11] MEDS: COLLAGENASE 5 GM (UD JAR) TOP (09:10)
[2018-10-11] MEDS: ASCORBIC ACID 500 MG TAB GTB (09:10)
[2018-10-11] MEDS: GABAPENTIN 300 MG CAP GTB ×2 (09:10→22:05)
[2018-10-11] MEDS: FLUCONAZOLE 100 MG TAB PO (09:10)
[2018-10-11] MEDS: MULTIVITAMINS 30 ML CUP GTB (09:10)
[2018-10-11] MEDS: HYDROCORTISONE 100 MG INJ IV ×2 (09:18→22:05)
[2018-10-11] MEDS: LEVALBUTEROL (HFA) 15 GM INHALER INH ×2 (09:26→16:57)
[2018-10-11] MEDS: IPRATROPIUM (HFA) 12.9 GM INHALER INH ×2 (09:26→16:57)
[2018-10-11] MEDS: INSULIN GLARGINE [LANTus] (100 UNITS/ML) SYG SC (09:36)
[2018-10-11] MEDS: CLOTRIMAZOLE 1% 45 GM VAG CR VAG (22:06)
[2018-10-12] MEDS: IPRATROPIUM (HFA) 12.9 GM INHALER INH ×4 (00:03→23:28)
[2018-10-12] MEDS: LEVALBUTEROL (HFA) 15 GM INHALER INH ×4 (00:04→23:28)
[2018-10-12] MEDS: LANSOPRAZOLE 30 MG CAP GTB (05:26)
[2018-10-12] MEDS: INSULIN ASPART [NOVOLOG] 3 ML PEN SC ×3 (06:31→17:52)
[2018-10-12] MEDS: COLLAGENASE 5 GM (UD JAR) TOP (09:16)
[2018-10-12] MEDS: MULTIVITAMINS 30 ML CUP GTB (09:16)
[2018-10-12] MEDS: FLUCONAZOLE 100 MG TAB PO (09:16)
[2018-10-12] MEDS: METOPROLOL 25 MG TAB PO ×2 (09:16→22:20)
[2018-10-12] MEDS: POTASSIUM CHLORIDE 20 MEQ POWDER FOR ORAL SOLN GTB ×2 (09:17→22:19)
[2018-10-12] MEDS: GABAPENTIN 300 MG CAP GTB ×2 (09:17→22:19)
[2018-10-12] MEDS: ASCORBIC ACID 500 MG TAB GTB (09:17)
[2018-10-12] MEDS: DESMOPRESSIN 0.1 MG TAB PEG ×3 (09:17→22:19)
[2018-10-12] MEDS: HYDROCORTISONE 100 MG INJ IV ×2 (09:17→22:19)
[2018-10-12] MEDS: ASPIRIN 81 MG TAB GTB (09:17)
[2018-10-12] MEDS: HYDROCORTISONE 1% 28.35 GM OINT TOP ×3 (09:18→22:19)
[2018-10-12] MEDS: INSULIN GLARGINE [LANTus] (100 UNITS/ML) SYG SC (10:10)
[2018-10-12] MEDS: D5W + KCL 20 MEQ 1,000 ML IV ×3 (12:38→14:30)
[2018-10-12] MEDS: CLOTRIMAZOLE 1% 45 GM VAG CR VAG (22:18)
[2018-10-13] MEDS: D5W + KCL 20 MEQ 1,000 ML IV ×2 (03:25→16:01)
[2018-10-13] MEDS: LANSOPRAZOLE 30 MG CAP GTB (05:06)
[2018-10-13] MEDS: INSULIN ASPART [NOVOLOG] 3 ML PEN SC ×5 (05:44→23:43)
[2018-10-13] MEDS: LEVALBUTEROL (HFA) 15 GM INHALER INH ×3 (07:54→23:36)
[2018-10-13] MEDS: IPRATROPIUM (HFA) 12.9 GM INHALER INH ×3 (07:54→23:36)
[2018-10-13] MEDS: POTASSIUM CHLORIDE 20 MEQ POWDER FOR ORAL SOLN GTB ×2 (08:48→20:43)
[2018-10-13] MEDS: DESMOPRESSIN 0.1 MG TAB PEG ×3 (08:48→23:43)
[2018-10-13] MEDS: FLUCONAZOLE 100 MG TAB PO (08:48)
[2018-10-13] MEDS: GABAPENTIN 300 MG CAP GTB ×2 (08:48→20:44)
[2018-10-13] MEDS: COLLAGENASE 5 GM (UD JAR) TOP (08:48)
[2018-10-13] MEDS: ASCORBIC ACID 500 MG TAB GTB (08:48)
[2018-10-13] MEDS: HYDROCORTISONE 100 MG INJ IV ×2 (08:49→20:45)
[2018-10-13] MEDS: METOPROLOL 25 MG TAB PO ×2 (08:49→20:44)
[2018-10-13] MEDS: HYDROCORTISONE 1% 28.35 GM OINT TOP ×3 (08:49→20:45)
[2018-10-13] MEDS: ASPIRIN 81 MG TAB GTB (08:49)
[2018-10-13] MEDS: MULTIVITAMINS 30 ML CUP GTB (08:49)
[2018-10-13] MEDS: INSULIN GLARGINE [LANTus] (100 UNITS/ML) SYG SC (09:01)
[2018-10-14] MEDS: D5W + KCL 20 MEQ 1,000 ML IV ×2 (03:47→16:16)
[2018-10-14] MEDS: LANSOPRAZOLE 30 MG CAP GTB (05:43)
[2018-10-14] MEDS: INSULIN ASPART [NOVOLOG] 3 ML PEN SC ×4 (06:06→23:57)
[2018-10-14] MEDS: GABAPENTIN 300 MG CAP GTB ×2 (08:28→20:25)
[2018-10-14] MEDS: DESMOPRESSIN 0.1 MG TAB PEG ×3 (08:28→20:25)
[2018-10-14] MEDS: ASCORBIC ACID 500 MG TAB GTB (08:28)
[2018-10-14] MEDS: FLUCONAZOLE 100 MG TAB PO (08:28)
[2018-10-14] MEDS: ASPIRIN 81 MG TAB GTB (08:28)
[2018-10-14] MEDS: POTASSIUM CHLORIDE 20 MEQ POWDER FOR ORAL SOLN GTB ×2 (08:28→20:30)
[2018-10-14] MEDS: HYDROCORTISONE 100 MG INJ IV ×2 (08:29→20:29)
[2018-10-14] MEDS: HYDROCORTISONE 1% 28.35 GM OINT TOP ×3 (08:29→20:35)
[2018-10-14] MEDS: MULTIVITAMINS 30 ML CUP GTB (08:29)
[2018-10-14] MEDS: COLLAGENASE 5 GM (UD JAR) TOP (08:29)
[2018-10-14] MEDS: METOPROLOL 25 MG TAB PO ×2 (08:29→20:29)
[2018-10-14] MEDS: INSULIN GLARGINE [LANTus] (100 UNITS/ML) SYG SC (08:59)
[2018-10-14] MEDS: LEVALBUTEROL (HFA) 15 GM INHALER INH ×2 (10:00→15:17)
[2018-10-14] MEDS: IPRATROPIUM (HFA) 12.9 GM INHALER INH ×2 (10:00→15:18)
[2018-10-15] MEDS: IPRATROPIUM (HFA) 12.9 GM INHALER INH ×3 (01:06→16:06)
[2018-10-15] MEDS: LEVALBUTEROL (HFA) 15 GM INHALER INH ×3 (01:07→16:06)
[2018-10-15] MEDS: D5W + KCL 20 MEQ 1,000 ML IV (05:05)
[2018-10-15] MEDS: LANSOPRAZOLE 30 MG CAP GTB (05:05)
[2018-10-15] MEDS: INSULIN ASPART [NOVOLOG] 3 ML PEN SC ×3 (05:27→17:04)
[2018-10-15] MEDS: INSULIN GLARGINE [LANTus] (100 UNITS/ML) SYG SC (07:57)
[2018-10-15] MEDS: POTASSIUM CHLORIDE 20 MEQ POWDER FOR ORAL SOLN GTB ×2 (08:34→22:39)
[2018-10-15] MEDS: ASCORBIC ACID 500 MG TAB GTB (08:34)
[2018-10-15] MEDS: FLUCONAZOLE 100 MG TAB PO (08:34)
[2018-10-15] MEDS: DESMOPRESSIN 0.1 MG TAB PEG ×2 (08:34→12:11)
[2018-10-15] MEDS: METOPROLOL 25 MG TAB PO ×2 (08:35→21:00)
[2018-10-15] MEDS: ASPIRIN 81 MG TAB GTB (08:35)
[2018-10-15] MEDS: COLLAGENASE 5 GM (UD JAR) TOP (08:35)
[2018-10-15] MEDS: HYDROCORTISONE 100 MG INJ IV (08:35)
[2018-10-15] MEDS: GABAPENTIN 300 MG CAP GTB ×2 (08:35→22:41)
[2018-10-15] MEDS: MULTIVITAMINS 30 ML CUP GTB (08:35)
[2018-10-15] MEDS: HYDROCORTISONE 1% 28.35 GM OINT TOP ×3 (08:39→21:00)
[2018-10-15] MEDS: DESMOPRESSIN 0.1 MG TAB PO (21:00)
[2018-10-16] MEDS: IPRATROPIUM (HFA) 12.9 GM INHALER INH ×3 (00:12→17:11)
[2018-10-16] MEDS: LEVALBUTEROL (HFA) 15 GM INHALER INH ×3 (00:12→17:11)
[2018-10-16] MEDS: INSULIN ASPART [NOVOLOG] 3 ML PEN SC ×4 (06:00→17:05)
[2018-10-16] MEDS: LANSOPRAZOLE 30 MG CAP GTB (06:00)
[2018-10-16] MEDS: INSULIN GLARGINE [LANTus] (100 UNITS/ML) SYG SC (07:58)
[2018-10-16] MEDS: FLUCONAZOLE 100 MG TAB PO (08:19)
[2018-10-16] MEDS: MULTIVITAMINS 30 ML CUP GTB (08:19)
[2018-10-16] MEDS: DESMOPRESSIN 0.1 MG TAB PO ×2 (08:19→21:47)
[2018-10-16] MEDS: GABAPENTIN 300 MG CAP GTB ×2 (08:19→21:46)
[2018-10-16] MEDS: POTASSIUM CHLORIDE 20 MEQ POWDER FOR ORAL SOLN GTB ×3 (08:19→21:46)
[2018-10-16] MEDS: POTASSIUM CHLORIDE (SR) 10 MEQ TAB PO (08:19)
[2018-10-16] MEDS: METOPROLOL 25 MG TAB PO ×2 (08:20→21:47)
[2018-10-16] MEDS: ASPIRIN 81 MG TAB GTB (08:20)
[2018-10-16] MEDS: HYDROCORTISONE 100 MG INJ IV ×2 (08:20→21:48)
[2018-10-16] MEDS: ASCORBIC ACID 500 MG TAB GTB (08:20)
[2018-10-16] MEDS: COLLAGENASE 5 GM (UD JAR) TOP (08:21)
[2018-10-16] MEDS: HYDROCORTISONE 1% 28.35 GM OINT TOP ×3 (08:21→21:48)
[2018-10-16] MEDS: ACETAMINOPHEN 650MG/20.3ML CUP GTB (08:35)
[2018-10-16] MEDS ORDERED: POTASSIUM CHLORIDE (SR) 10 MEQ TAB PO (10:00)
[2018-10-17] MEDS: IPRATROPIUM (HFA) 12.9 GM INHALER INH ×4 (00:47→23:26)
[2018-10-17] MEDS: LEVALBUTEROL (HFA) 15 GM INHALER INH ×4 (00:47→23:26)
[2018-10-17] MEDS: LANSOPRAZOLE 30 MG CAP GTB (06:12)
[2018-10-17] MEDS: INSULIN ASPART [NOVOLOG] 3 ML PEN SC ×5 (06:15→23:58)
[2018-10-17] MEDS: FLUCONAZOLE 100 MG TAB PO (09:14)
[2018-10-17] MEDS: MULTIVITAMINS 30 ML CUP GTB (09:14)
[2018-10-17] MEDS: POTASSIUM CHLORIDE 20 MEQ POWDER FOR ORAL SOLN GTB ×2 (09:14→20:50)
[2018-10-17] MEDS: GABAPENTIN 300 MG CAP GTB ×2 (09:14→20:50)
[2018-10-17] MEDS: ASPIRIN 81 MG TAB GTB (09:14)
[2018-10-17] MEDS: ASCORBIC ACID 500 MG TAB GTB (09:14)
[2018-10-17] MEDS: METOPROLOL 25 MG TAB PO ×2 (09:15→20:51)
[2018-10-17] MEDS: DESMOPRESSIN 0.1 MG TAB PO ×2 (09:15→20:50)
[2018-10-17] MEDS: HYDROCORTISONE 100 MG INJ IV ×2 (09:15→20:50)
[2018-10-17] MEDS: HYDROCORTISONE 1% 28.35 GM OINT TOP ×3 (09:16→20:50)
[2018-10-17] MEDS: COLLAGENASE 5 GM (UD JAR) TOP (09:16)
[2018-10-17] MEDS: DIPHENHYDRAMINE 25 MG CAP GTB (09:42)
[2018-10-17] MEDS: INSULIN GLARGINE [LANTus] (100 UNITS/ML) SYG SC (10:45)
[2018-10-17] MEDS: LORAZEPAM 2 MG INJ IV ×2 (15:30→22:32)
[2018-10-17] MEDS: MEROPENEM 1 GM/50ML(PMX) 50 ML IVPB (15:31)
[2018-10-17] MEDS: morphine 2 MG INJ IV (18:40)
[2018-10-18] MEDS: MEROPENEM 1 GM/50ML(PMX) 50 ML IVPB (02:19)
[2018-10-18] MEDS: INSULIN ASPART [NOVOLOG] 3 ML PEN SC ×3 (05:07→18:00)
[2018-10-18] MEDS: LANSOPRAZOLE 30 MG CAP GTB (05:08)
[2018-10-18] MEDS: LORAZEPAM 2 MG INJ IV (07:52)
[2018-10-18] MEDS: INSULIN GLARGINE [LANTus] (100 UNITS/ML) SYG SC (08:05)
[2018-10-18] MEDS: IPRATROPIUM (HFA) 12.9 GM INHALER INH ×3 (08:13→23:26)
[2018-10-18] MEDS: LEVALBUTEROL (HFA) 15 GM INHALER INH ×3 (08:13→23:26)
[2018-10-18] MEDS: GABAPENTIN 300 MG CAP GTB ×2 (08:46→21:15)
[2018-10-18] MEDS: ASCORBIC ACID 500 MG TAB GTB (08:46)
[2018-10-18] MEDS: POTASSIUM CHLORIDE 20 MEQ POWDER FOR ORAL SOLN GTB ×2 (08:46→21:26)
[2018-10-18] MEDS: FLUCONAZOLE 100 MG TAB PO (08:46)
[2018-10-18] MEDS: DESMOPRESSIN 0.1 MG TAB PO ×2 (08:46→21:15)
[2018-10-18] MEDS: ASPIRIN 81 MG TAB GTB (08:46)
[2018-10-18] MEDS: HYDROCORTISONE 100 MG INJ IV ×2 (08:47→21:14)
[2018-10-18] MEDS: METOPROLOL 25 MG TAB PO ×2 (08:47→21:15)
[2018-10-18] MEDS: COLLAGENASE 5 GM (UD JAR) TOP (08:47)
[2018-10-18] MEDS: HYDROCORTISONE 1% 28.35 GM OINT TOP ×3 (08:48→21:15)
[2018-10-18] MEDS: MULTIVITAMINS 30 ML CUP GTB (08:48)
[2018-10-18] MEDS: CEFTRIAXONE 2 GM/50 ML (PMX) 50 ML IVPB (15:56)
[2018-10-18] MEDS: ACETAMINOPHEN 650MG/20.3ML CUP GTB (21:15)
[2018-10-18] MEDS: DIPHENHYDRAMINE 25 MG CAP GTB (21:15)
[2018-10-19] MEDS: ACETAMINOPHEN 650MG/20.3ML CUP GTB (05:26)
[2018-10-19] MEDS: DIPHENHYDRAMINE 25 MG CAP GTB ×3 (05:34→20:05)
[2018-10-19] MEDS: LANSOPRAZOLE 30 MG CAP GTB (05:34)
[2018-10-19] MEDS: INSULIN ASPART [NOVOLOG] 3 ML PEN SC ×4 (05:36→17:37)
[2018-10-19] MEDS: IPRATROPIUM (HFA) 12.9 GM INHALER INH ×3 (08:04→23:36)
[2018-10-19] MEDS: LEVALBUTEROL (HFA) 15 GM INHALER INH ×3 (08:04→23:36)
[2018-10-19] MEDS: MULTIVITAMINS 30 ML CUP GTB (08:18)
[2018-10-19] MEDS: HYDROCORTISONE 1% 28.35 GM OINT TOP ×3 (08:18→20:37)
[2018-10-19] MEDS: COLLAGENASE 5 GM (UD JAR) TOP (08:18)
[2018-10-19] MEDS: HYDROCORTISONE 100 MG INJ IV ×2 (08:18→20:36)
[2018-10-19] MEDS: POTASSIUM CHLORIDE 20 MEQ POWDER FOR ORAL SOLN GTB ×2 (08:18→20:36)
[2018-10-19] MEDS: ASCORBIC ACID 500 MG TAB GTB (08:19)
[2018-10-19] MEDS: DESMOPRESSIN 0.1 MG TAB PO ×2 (08:19→20:36)
[2018-10-19] MEDS: METOPROLOL 25 MG TAB PO ×2 (08:19→20:37)
[2018-10-19] MEDS: ASPIRIN 81 MG TAB GTB (08:19)
[2018-10-19] MEDS: GABAPENTIN 300 MG CAP GTB ×2 (08:19→20:36)
[2018-10-19] MEDS: FLUCONAZOLE 100 MG TAB PO (08:19)
[2018-10-19] MEDS: LORAZEPAM 2 MG INJ IV ×2 (08:20→20:24)
[2018-10-19] MEDS: INSULIN GLARGINE [LANTus] (100 UNITS/ML) SYG SC (08:54)
[2018-10-19] MEDS: CEFTRIAXONE 2 GM/50 ML (PMX) 50 ML IVPB (13:33)
[2018-10-20] MEDS: INSULIN ASPART [NOVOLOG] 3 ML PEN SC ×5 (06:00→23:59)
[2018-10-20] MEDS: LANSOPRAZOLE 30 MG CAP GTB (06:38)
[2018-10-20] MEDS: LORAZEPAM 2 MG INJ IV ×2 (06:38→23:59)
[2018-10-20] MEDS: IPRATROPIUM (HFA) 12.9 GM INHALER INH ×3 (08:11→23:15)
[2018-10-20] MEDS: LEVALBUTEROL (HFA) 15 GM INHALER INH ×3 (08:11→23:15)
[2018-10-20] MEDS: POTASSIUM CHLORIDE 20 MEQ POWDER FOR ORAL SOLN GTB ×2 (09:03→21:59)
[2018-10-20] MEDS: DESMOPRESSIN 0.1 MG TAB PO ×2 (09:04→21:59)
[2018-10-20] MEDS: GABAPENTIN 300 MG CAP GTB ×2 (09:04→21:59)
[2018-10-20] MEDS: COLLAGENASE 5 GM (UD JAR) TOP (09:04)
[2018-10-20] MEDS: FLUCONAZOLE 100 MG TAB PO (09:04)
[2018-10-20] MEDS: HYDROCORTISONE 100 MG INJ IV (09:04)
[2018-10-20] MEDS: ASCORBIC ACID 500 MG TAB GTB (09:04)
[2018-10-20] MEDS: ASPIRIN 81 MG TAB GTB (09:04)
[2018-10-20] MEDS: MULTIVITAMINS 30 ML CUP GTB (09:04)
[2018-10-20] MEDS: METOPROLOL 25 MG TAB PO ×2 (09:05→22:00)
[2018-10-20] MEDS: HYDROCORTISONE 1% 28.35 GM OINT TOP ×3 (09:06→22:00)
[2018-10-20] MEDS: DIPHENHYDRAMINE 25 MG CAP GTB ×2 (09:22→22:01)
[2018-10-20] MEDS: INSULIN GLARGINE [LANTus] (100 UNITS/ML) SYG SC (09:36)
[2018-10-20] MEDS: CEFTRIAXONE 2 GM/50 ML (PMX) 50 ML IVPB (14:49)
[2018-10-20] MEDS: predniSONE 20 MG TAB PO (18:28)
[2018-10-20] MEDS: DEXTROSE 50% 50 ML SYRINGE IV (18:34)
[2018-10-21] MEDS: LANSOPRAZOLE 30 MG CAP GTB (06:00)
[2018-10-21] MEDS: INSULIN ASPART [NOVOLOG] 3 ML PEN SC ×4 (06:00→23:57)
[2018-10-21] MEDS: LEVALBUTEROL (HFA) 15 GM INHALER INH ×3 (08:12→23:49)
[2018-10-21] MEDS: IPRATROPIUM (HFA) 12.9 GM INHALER INH ×3 (08:13→23:49)
[2018-10-21] MEDS: MULTIVITAMINS 30 ML CUP GTB (08:31)
[2018-10-21] MEDS: COLLAGENASE 5 GM (UD JAR) TOP (08:31)
[2018-10-21] MEDS: DIPHENHYDRAMINE 25 MG CAP GTB ×2 (08:32→20:46)
[2018-10-21] MEDS: GABAPENTIN 300 MG CAP GTB ×2 (08:32→20:27)
[2018-10-21] MEDS: ASCORBIC ACID 500 MG TAB GTB (08:32)
[2018-10-21] MEDS: DESMOPRESSIN 0.1 MG TAB PO ×3 (08:32→20:26)
[2018-10-21] MEDS: POTASSIUM CHLORIDE 20 MEQ POWDER FOR ORAL SOLN GTB ×2 (08:32→20:26)
[2018-10-21] MEDS: FLUCONAZOLE 100 MG TAB PO (08:32)
[2018-10-21] MEDS: predniSONE 20 MG TAB PO (08:32)
[2018-10-21] MEDS: METOPROLOL 25 MG TAB PO ×2 (08:33→20:47)
[2018-10-21] MEDS: HYDROCORTISONE 1% 28.35 GM OINT TOP ×3 (08:34→20:47)
[2018-10-21] MEDS: INSULIN GLARGINE [LANTus] (100 UNITS/ML) SYG SC (09:06)
[2018-10-21] MEDS: CEFTRIAXONE 2 GM/50 ML (PMX) 50 ML IVPB (14:20)
[2018-10-21] MEDS: LORAZEPAM 2 MG INJ IV (14:20)
[2018-10-21] MEDS: LOPERAMIDE HCL 1 MG/5 ML LIQUID (10 ML UD CUP) GTB (20:27)
[2018-10-22] MEDS: LORAZEPAM 2 MG INJ IV ×3 (02:34→20:27)
[2018-10-22] MEDS: LOPERAMIDE HCL 1 MG/5 ML LIQUID (10 ML UD CUP) GTB ×2 (03:59→20:20)
[2018-10-22] MEDS: DIPHENHYDRAMINE 25 MG CAP GTB ×2 (03:59→20:20)
[2018-10-22] MEDS: LANSOPRAZOLE 30 MG CAP GTB (05:27)
[2018-10-22] MEDS: INSULIN ASPART [NOVOLOG] 3 ML PEN SC ×4 (05:29→22:06)
[2018-10-22] MEDS: DESMOPRESSIN 0.1 MG TAB PO ×3 (08:37→20:19)
[2018-10-22] MEDS: COLLAGENASE 5 GM (UD JAR) TOP (08:37)
[2018-10-22] MEDS: predniSONE 20 MG TAB PO (08:37)
[2018-10-22] MEDS: GABAPENTIN 300 MG CAP GTB ×2 (08:38→20:19)
[2018-10-22] MEDS: FLUCONAZOLE 100 MG TAB PO (08:38)
[2018-10-22] MEDS: METOPROLOL 25 MG TAB PO ×2 (08:38→20:20)
[2018-10-22] MEDS: ASCORBIC ACID 500 MG TAB GTB (08:38)
[2018-10-22] MEDS: MULTIVITAMINS 30 ML CUP GTB (08:38)
[2018-10-22] MEDS: HYDROCORTISONE 1% 28.35 GM OINT TOP ×3 (08:38→20:21)
[2018-10-22] MEDS: POTASSIUM CHLORIDE 20 MEQ POWDER FOR ORAL SOLN GTB ×2 (08:39→20:19)
[2018-10-22] MEDS: INSULIN GLARGINE [LANTus] (100 UNITS/ML) SYG SC (08:46)
[2018-10-22] MEDS: IPRATROPIUM (HFA) 12.9 GM INHALER INH ×2 (11:33→18:13)
[2018-10-22] MEDS: LEVALBUTEROL (HFA) 15 GM INHALER INH ×2 (11:33→18:13)
[2018-10-22] MEDS: LORATADINE 10 MG TAB PO (11:42)
[2018-10-23] MEDS: IPRATROPIUM (HFA) 12.9 GM INHALER INH ×4 (01:12→23:08)
[2018-10-23] MEDS: LEVALBUTEROL (HFA) 15 GM INHALER INH ×4 (01:12→23:08)
[2018-10-23] MEDS: INSULIN ASPART [NOVOLOG] 3 ML PEN SC ×3 (06:00→17:28)
[2018-10-23] MEDS: LANSOPRAZOLE 30 MG CAP GTB (06:56)
[2018-10-23] MEDS: MULTIVITAMINS 30 ML CUP GTB (09:18)
[2018-10-23] MEDS: predniSONE 20 MG TAB PO (09:18)
[2018-10-23] MEDS: COLLAGENASE 5 GM (UD JAR) TOP (09:18)
[2018-10-23] MEDS: ASCORBIC ACID 500 MG TAB GTB (09:18)
[2018-10-23] MEDS: DESMOPRESSIN 0.1 MG TAB PO ×3 (09:18→21:58)
[2018-10-23] MEDS: GABAPENTIN 300 MG CAP GTB ×2 (09:19→21:59)
[2018-10-23] MEDS: LORATADINE 10 MG TAB PO (09:19)
[2018-10-23] MEDS: FLUCONAZOLE 100 MG TAB PO (09:19)
[2018-10-23] MEDS: POTASSIUM CHLORIDE 20 MEQ POWDER FOR ORAL SOLN GTB ×2 (09:19→21:59)
[2018-10-23] MEDS: METOPROLOL 25 MG TAB PO ×2 (09:20→21:58)
[2018-10-23] MEDS: HYDROCORTISONE 1% 28.35 GM OINT TOP ×3 (09:20→21:59)
[2018-10-23] MEDS: INSULIN GLARGINE [LANTus] (100 UNITS/ML) SYG SC (09:36)
[2018-10-24] MEDS: INSULIN ASPART [NOVOLOG] 3 ML PEN SC ×5 (06:00→23:37)
[2018-10-24] MEDS: LANSOPRAZOLE 30 MG CAP GTB (06:03)
[2018-10-24] MEDS: IPRATROPIUM (HFA) 12.9 GM INHALER INH ×3 (07:15→15:21)
[2018-10-24] MEDS: LEVALBUTEROL (HFA) 15 GM INHALER INH ×3 (07:15→15:21)
[2018-10-24] MEDS: COLLAGENASE 5 GM (UD JAR) TOP (08:27)
[2018-10-24] MEDS: LORAZEPAM 2 MG INJ IV ×2 (08:27→16:32)
[2018-10-24] MEDS: LORATADINE 10 MG TAB PO (08:27)
[2018-10-24] MEDS: ASCORBIC ACID 500 MG TAB GTB (08:27)
[2018-10-24] MEDS: GABAPENTIN 300 MG CAP GTB ×2 (08:27→21:02)
[2018-10-24] MEDS: FLUCONAZOLE 100 MG TAB PO (08:27)
[2018-10-24] MEDS: MULTIVITAMINS 30 ML CUP GTB (08:27)
[2018-10-24] MEDS: POTASSIUM CHLORIDE 20 MEQ POWDER FOR ORAL SOLN GTB ×2 (08:27→21:02)
[2018-10-24] MEDS: predniSONE 20 MG TAB PO (08:28)
[2018-10-24] MEDS: DESMOPRESSIN 0.1 MG TAB PO ×3 (08:28→21:02)
[2018-10-24] MEDS: METOPROLOL 25 MG TAB PO ×2 (08:28→21:03)
[2018-10-24] MEDS: HYDROCORTISONE 1% 28.35 GM OINT TOP ×3 (08:28→21:02)
[2018-10-24] MEDS: INSULIN GLARGINE [LANTus] (100 UNITS/ML) SYG SC (08:37)
[2018-10-25] MEDS: INSULIN ASPART [NOVOLOG] 3 ML PEN SC ×3 (05:41→17:16)
[2018-10-25] MEDS: LANSOPRAZOLE 30 MG CAP GTB (05:41)
[2018-10-25] MEDS: COLLAGENASE 5 GM (UD JAR) TOP (08:34)
[2018-10-25] MEDS: DESMOPRESSIN 0.1 MG TAB PO ×3 (08:34→21:16)
[2018-10-25] MEDS: FLUCONAZOLE 100 MG TAB PO (08:35)
[2018-10-25] MEDS: MULTIVITAMINS 30 ML CUP GTB (08:35)
[2018-10-25] MEDS: POTASSIUM CHLORIDE 20 MEQ POWDER FOR ORAL SOLN GTB ×2 (08:35→21:17)
[2018-10-25] MEDS: GABAPENTIN 300 MG CAP GTB ×2 (08:35→21:17)
[2018-10-25] MEDS: LORATADINE 10 MG TAB PO (08:35)
[2018-10-25] MEDS: ASCORBIC ACID 500 MG TAB GTB (08:35)
[2018-10-25] MEDS: predniSONE 20 MG TAB PO (08:35)
[2018-10-25] MEDS: METOPROLOL 25 MG TAB PO ×2 (08:35→21:17)
[2018-10-25] MEDS: HYDROCORTISONE 1% 28.35 GM OINT TOP ×3 (08:36→21:17)
[2018-10-25] MEDS: LORAZEPAM 2 MG INJ IV (08:36)
[2018-10-25] MEDS: IPRATROPIUM (HFA) 12.9 GM INHALER INH ×3 (08:44→23:30)
[2018-10-25] MEDS: LEVALBUTEROL (HFA) 15 GM INHALER INH ×3 (08:44→23:29)
[2018-10-25] MEDS: INSULIN GLARGINE [LANTus] (100 UNITS/ML) SYG SC (08:47)
[2018-10-25] MEDS: LOPERAMIDE HCL 1 MG/5 ML LIQUID (10 ML UD CUP) GTB (21:16)
[2018-10-25] MEDS: DIPHENHYDRAMINE 25 MG CAP GTB (21:16)
[2018-10-26] MEDS: INSULIN ASPART [NOVOLOG] 3 ML PEN SC ×5 (05:37→23:56)
[2018-10-26] MEDS: LANSOPRAZOLE 30 MG CAP GTB (05:37)
[2018-10-26] MEDS: LEVALBUTEROL (HFA) 15 GM INHALER INH ×2 (08:20→16:45)
[2018-10-26] MEDS: IPRATROPIUM (HFA) 12.9 GM INHALER INH ×2 (08:20→16:45)
[2018-10-26] MEDS: FLUCONAZOLE 100 MG TAB PO (08:41)
[2018-10-26] MEDS: DIPHENHYDRAMINE 25 MG CAP GTB (08:41)
[2018-10-26] MEDS: DESMOPRESSIN 0.1 MG TAB PO ×3 (08:41→22:13)
[2018-10-26] MEDS: COLLAGENASE 5 GM (UD JAR) TOP (08:41)
[2018-10-26] MEDS: MULTIVITAMINS 30 ML CUP GTB (08:41)
[2018-10-26] MEDS: POTASSIUM CHLORIDE 20 MEQ POWDER FOR ORAL SOLN GTB ×2 (08:41→22:13)
[2018-10-26] MEDS: predniSONE 20 MG TAB PO (08:41)
[2018-10-26] MEDS: ASCORBIC ACID 500 MG TAB GTB (08:41)
[2018-10-26] MEDS: GABAPENTIN 300 MG CAP GTB ×2 (08:42→22:13)
[2018-10-26] MEDS: METOPROLOL 25 MG TAB PO ×2 (08:42→22:14)
[2018-10-26] MEDS: LORATADINE 10 MG TAB PO (08:42)
[2018-10-26] MEDS: HYDROCORTISONE 1% 28.35 GM OINT TOP ×3 (08:42→22:16)
[2018-10-26] MEDS: INSULIN GLARGINE [LANTus] (100 UNITS/ML) SYG SC (08:45)
[2018-10-27] MEDS: INSULIN ASPART [NOVOLOG] 3 ML PEN SC ×3 (06:00→18:00)
[2018-10-27] MEDS: LANSOPRAZOLE 30 MG CAP GTB (06:24)
[2018-10-27] MEDS: HYDROCORTISONE 1% 28.35 GM OINT TOP ×3 (09:00→21:27)
[2018-10-27] MEDS: COLLAGENASE 5 GM (UD JAR) TOP (09:15)
[2018-10-27] MEDS: FLUCONAZOLE 100 MG TAB PO (09:15)
[2018-10-27] MEDS: ASCORBIC ACID 500 MG TAB GTB (09:15)
[2018-10-27] MEDS: LORATADINE 10 MG TAB PO (09:15)
[2018-10-27] MEDS: DESMOPRESSIN 0.1 MG TAB PO ×3 (09:15→21:25)
[2018-10-27] MEDS: GABAPENTIN 300 MG CAP GTB ×2 (09:15→21:26)
[2018-10-27] MEDS: MULTIVITAMINS 30 ML CUP GTB (09:15)
[2018-10-27] MEDS: POTASSIUM CHLORIDE 20 MEQ POWDER FOR ORAL SOLN GTB ×2 (09:15→21:25)
[2018-10-27] MEDS: METOPROLOL 25 MG TAB PO ×2 (09:16→21:26)
[2018-10-27] MEDS: INSULIN GLARGINE [LANTus] (100 UNITS/ML) SYG SC (12:35)
[2018-10-27] MEDS: LEVALBUTEROL (HFA) 15 GM INHALER INH ×3 (15:50→16:00)
[2018-10-27] MEDS: IPRATROPIUM (HFA) 12.9 GM INHALER INH ×3 (15:50→16:00)
[2018-10-27] MEDS: LOPERAMIDE HCL 1 MG/5 ML LIQUID (10 ML UD CUP) GTB (21:24)
[2018-10-27] MEDS: QUETIAPINE 25 MG TAB NGT (21:25)
[2018-10-27] MEDS: DIPHENHYDRAMINE 25 MG CAP GTB (21:26)
[2018-10-27] MEDS: SOD CHLORIDE 0.9% 1,000 ML IV (23:40)
[2018-10-28] MEDS ORDERED: NORepinephrine 8MG/250 ML (PMX 250 ML (00:10)
[2018-10-28] MEDS: LIDOCAINE 1% (MDV) 20 ML INJ INJ (00:30)
[2018-10-28] MEDS: LEVALBUTEROL (HFA) 15 GM INHALER INH ×3 (01:32→17:00)
[2018-10-28] MEDS: IPRATROPIUM (HFA) 12.9 GM INHALER INH ×3 (01:32→17:00)
[2018-10-28] MEDS: INSULIN ASPART [NOVOLOG] 3 ML PEN SC ×5 (05:15→23:31)
[2018-10-28] MEDS: LANSOPRAZOLE 30 MG CAP GTB (05:19)
[2018-10-28] MEDS: NORepinephrine 8MG/250 ML (PMX 250 ML IV ×3 (07:32→20:57)
[2018-10-28] MEDS: LORATADINE 10 MG TAB PO (08:37)
[2018-10-28] MEDS: COLLAGENASE 5 GM (UD JAR) TOP (08:37)
[2018-10-28] MEDS: MULTIVITAMINS 30 ML CUP GTB (08:37)
[2018-10-28] MEDS: SOD CHLORIDE 0.9% 1,000 ML IV (08:37)
[2018-10-28] MEDS: FLUCONAZOLE 100 MG TAB PO (08:38)
[2018-10-28] MEDS: DESMOPRESSIN 0.1 MG TAB PO ×3 (08:38→21:03)
[2018-10-28] MEDS: ASCORBIC ACID 500 MG TAB GTB (08:38)
[2018-10-28] MEDS: METOPROLOL 25 MG TAB PO ×2 (08:38→21:03)
[2018-10-28] MEDS: GABAPENTIN 300 MG CAP GTB ×2 (08:38→21:02)
[2018-10-28] MEDS: POTASSIUM CHLORIDE 20 MEQ POWDER FOR ORAL SOLN GTB (08:39)
[2018-10-28] MEDS: PIPER-TAZO 3.375 GM IV (PMX) 100 ML IVPB (08:46)
[2018-10-28] MEDS: INSULIN GLARGINE [LANTus] (100 UNITS/ML) SYG SC (08:47)
[2018-10-28] MEDS: HYDROCORTISONE 1% 28.35 GM OINT TOP ×3 (08:47→21:02)
[2018-10-28] MEDS: LIDOCAINE 1% (MPF) 5 ML VIAL SC (10:30)
[2018-10-28] MEDS: NA POLYST SULFON 15 GM/60 ML BTL GTB (10:39)
[2018-10-28] MEDS ORDERED: PHENYLephrine 20MG IN 250 ML 250 ML (11:11)
[2018-10-28] MEDS: PHENYLephrine 80 MG in DEXTROSE 5% 242 ML IV (11:36)
[2018-10-28] MEDS ORDERED: VANCOMYCIN IV PER PHARMACY XX (12:00)
[2018-10-28] MEDS ORDERED: VANCOMYCIN 1.25 GM/NS 250 ML 250 ML IVPB (13:00)
[2018-10-28] MEDS: ACETAMINOPHEN 650MG/20.3ML CUP GTB ×2 (13:16→23:15)
[2018-10-28] MEDS: PHENTOLAMINE 5 MG INJ SC (14:33)
[2018-10-28] MEDS: VANCOMYCIN 1.5 GM/NS 250 ML 250 ML IVPB (14:34)
[2018-10-28] MEDS: DIPHENHYDRAMINE 25 MG CAP GTB ×2 (17:23→23:15)
[2018-10-28] MEDS: MEROPENEM 1 GM/50ML(PMX) 50 ML IVPB (21:02)
[2018-10-29] MEDS: IPRATROPIUM (HFA) 12.9 GM INHALER INH ×3 (00:21→17:39)
[2018-10-29] MEDS: LEVALBUTEROL (HFA) 15 GM INHALER INH ×3 (00:21→17:38)
[2018-10-29] MEDS: LORAZEPAM 2 MG INJ IV ×2 (04:41→08:57)
[2018-10-29] MEDS: INSULIN ASPART [NOVOLOG] 3 ML PEN SC ×4 (05:29→23:57)
[2018-10-29] MEDS: LANSOPRAZOLE 30 MG CAP GTB (05:30)
[2018-10-29] MEDS: ASCORBIC ACID 500 MG TAB GTB (08:11)
[2018-10-29] MEDS: GABAPENTIN 300 MG CAP GTB ×2 (08:11→20:28)
[2018-10-29] MEDS: LORATADINE 10 MG TAB PO (08:12)
[2018-10-29] MEDS: DESMOPRESSIN 0.1 MG TAB PO ×3 (08:12→20:28)
[2018-10-29] MEDS: MULTIVITAMINS 30 ML CUP GTB (08:12)
[2018-10-29] MEDS: HYDROCORTISONE 1% 28.35 GM OINT TOP ×3 (08:13→20:29)
[2018-10-29] MEDS: METOPROLOL 25 MG TAB PO ×2 (08:17→20:29)
[2018-10-29] MEDS: MEROPENEM 1 GM/50ML(PMX) 50 ML IVPB ×2 (08:22→20:28)
[2018-10-29] MEDS: COLLAGENASE 5 GM (UD JAR) TOP (08:22)
[2018-10-29] MEDS: INSULIN GLARGINE [LANTus] (100 UNITS/ML) SYG SC (08:25)
[2018-10-29] MEDS: QUETIAPINE 25 MG TAB GTB ×2 (08:57→20:28)
[2018-10-29] MEDS: ACETAMINOPHEN 650MG/20.3ML CUP GTB ×2 (09:44→20:39)
[2018-10-29] MEDS: NORepinephrine 8MG/250 ML (PMX 250 ML IV (12:22)
[2018-10-29] MEDS: VANCOMYCIN 1 GM (PMX) 250 ML IVPB (13:31)
[2018-10-30] MEDS: NORepinephrine 8MG/250 ML (PMX 250 ML IV ×2 (00:03→20:36)
[2018-10-30] MEDS: LEVALBUTEROL (HFA) 15 GM INHALER INH ×3 (00:24→15:01)
[2018-10-30] MEDS: IPRATROPIUM (HFA) 12.9 GM INHALER INH ×3 (00:24→15:01)
[2018-10-30] MEDS: DIPHENHYDRAMINE 25 MG CAP GTB ×3 (03:50→20:36)
[2018-10-30] MEDS: ACETAMINOPHEN 650MG/20.3ML CUP GTB (03:51)
[2018-10-30] MEDS: LANSOPRAZOLE 30 MG CAP GTB (05:47)
[2018-10-30] MEDS: INSULIN ASPART [NOVOLOG] 3 ML PEN SC ×3 (05:52→18:00)
[2018-10-30] MEDS: DESMOPRESSIN 0.1 MG TAB PO ×3 (08:41→20:36)
[2018-10-30] MEDS: ASCORBIC ACID 500 MG TAB GTB (08:41)
[2018-10-30] MEDS: QUETIAPINE 25 MG TAB GTB ×2 (08:41→20:39)
[2018-10-30] MEDS: LORATADINE 10 MG TAB PO (08:41)
[2018-10-30] MEDS: METOPROLOL 25 MG TAB PO ×2 (08:42→20:36)
[2018-10-30] MEDS: COLLAGENASE 5 GM (UD JAR) TOP (08:43)
[2018-10-30] MEDS: MULTIVITAMINS 30 ML CUP GTB (08:43)
[2018-10-30] MEDS: GABAPENTIN 300 MG CAP GTB ×2 (08:44→20:36)
[2018-10-30] MEDS: HYDROCORTISONE 1% 28.35 GM OINT TOP ×3 (08:44→20:37)
[2018-10-30] MEDS: INSULIN GLARGINE [LANTus] (100 UNITS/ML) SYG SC (09:05)
[2018-10-30] MEDS: MEROPENEM 1 GM/50ML(PMX) 50 ML IVPB ×2 (10:00→20:36)
[2018-10-30] MEDS: POTASSIUM CHLORIDE 20 MEQ POWDER FOR ORAL SOLN GTB (10:33)
[2018-10-30] MEDS: POTASSIUM CHLORIDE 50 ML IVPB (10:36)
[2018-10-30] MEDS: VANCOMYCIN 1 GM (PMX) 250 ML IVPB (14:22)
[2018-10-31] MEDS: LEVALBUTEROL (HFA) 15 GM INHALER INH ×3 (00:56→17:08)
[2018-10-31] MEDS: IPRATROPIUM (HFA) 12.9 GM INHALER INH ×3 (00:56→17:08)
[2018-10-31] MEDS: INSULIN ASPART [NOVOLOG] 3 ML PEN SC ×4 (05:55→17:22)
[2018-10-31] MEDS: LANSOPRAZOLE 30 MG CAP GTB (05:55)
[2018-10-31] MEDS: ACETAMINOPHEN 650MG/20.3ML CUP GTB ×2 (07:01→21:32)
[2018-10-31] MEDS: MEROPENEM 1 GM/50ML(PMX) 50 ML IVPB (08:21)
[2018-10-31] MEDS: GABAPENTIN 300 MG CAP GTB ×2 (08:22→21:00)
[2018-10-31] MEDS: DESMOPRESSIN 0.1 MG TAB PO ×3 (08:22→21:00)
[2018-10-31] MEDS: COLLAGENASE 5 GM (UD JAR) TOP (08:22)
[2018-10-31] MEDS: MULTIVITAMINS 30 ML CUP GTB (08:22)
[2018-10-31] MEDS: METOPROLOL 25 MG TAB PO ×2 (08:23→21:00)
[2018-10-31] MEDS: QUETIAPINE 25 MG TAB GTB ×2 (08:24→21:00)
[2018-10-31] MEDS: ASCORBIC ACID 500 MG TAB GTB (08:24)
[2018-10-31] MEDS: LORATADINE 10 MG TAB PO (08:24)
[2018-10-31] MEDS: INSULIN GLARGINE [LANTus] (100 UNITS/ML) SYG SC (08:35)
[2018-10-31] MEDS: HYDROCORTISONE 1% 28.35 GM OINT TOP ×3 (09:00→21:01)
[2018-10-31] MEDS: MIDODRINE 5 MG TAB GTB ×2 (12:50→16:43)
[2018-10-31] MEDS ORDERED: AMIKACIN IV PER PHARMACY XX (14:00)
[2018-10-31] MEDS ORDERED: SOD CHLORIDE 0.9% IVPB (14:30)
[2018-10-31] MEDS ORDERED: AMIKACIN IVPB (14:30)
[2018-10-31] MEDS: LIDOCAINE 1% (MPF) 5 ML VIAL SC (15:30)
[2018-10-31] MEDS: VANCOMYCIN 750 MG (PMX) 250 ML IVPB (15:44)
[2018-10-31] MEDS ORDERED: AMIKACIN 500 MG in SOD CHLORIDE 0.9% 100 ML IVPB (16:00)
[2018-10-31] MEDS: AMIKACIN IVPB (16:42)
[2018-10-31] MEDS: SOD CHLORIDE 0.9% IVPB (16:42)
[2018-10-31] MEDS: NORepinephrine 8MG/250 ML (PMX 250 ML IV (21:08)
[2018-11-01] MEDS: LANSOPRAZOLE 30 MG CAP GTB (05:22)
[2018-11-01] MEDS: DIPHENHYDRAMINE 25 MG CAP GTB (05:22)
[2018-11-01] MEDS: INSULIN ASPART [NOVOLOG] 3 ML PEN SC ×4 (05:36→18:00)
[2018-11-01] MEDS: IPRATROPIUM (HFA) 12.9 GM INHALER INH ×4 (07:54→23:52)
[2018-11-01] MEDS: LEVALBUTEROL (HFA) 15 GM INHALER INH ×4 (07:54→23:52)
[2018-11-01] MEDS: COLLAGENASE 5 GM (UD JAR) TOP (08:25)
[2018-11-01] MEDS: MULTIVITAMINS 30 ML CUP GTB (08:26)
[2018-11-01] MEDS: LORATADINE 10 MG TAB PO (08:26)
[2018-11-01] MEDS: QUETIAPINE 25 MG TAB GTB ×2 (08:26→20:17)
[2018-11-01] MEDS: ASCORBIC ACID 500 MG TAB GTB (08:26)
[2018-11-01] MEDS: GABAPENTIN 300 MG CAP GTB ×2 (08:26→20:17)
[2018-11-01] MEDS: DESMOPRESSIN 0.1 MG TAB PO ×3 (08:26→20:17)
[2018-11-01] MEDS: MIDODRINE 5 MG TAB GTB ×3 (08:26→18:31)
[2018-11-01] MEDS: METOPROLOL 25 MG TAB PO (08:26)
[2018-11-01] MEDS: HYDROCORTISONE 1% 28.35 GM OINT TOP ×3 (08:58→20:17)
[2018-11-01] MEDS: INSULIN GLARGINE [LANTus] (100 UNITS/ML) SYG SC (09:00)
[2018-11-01] MEDS: ACETAMINOPHEN 650MG/20.3ML CUP GTB (09:23)
[2018-11-01] MEDS: LORAZEPAM 2 MG INJ IV (11:29)
[2018-11-01] MEDS: morphine 2 MG INJ IV (11:32)
[2018-11-01] MEDS: VANCOMYCIN 750 MG (PMX) 250 ML IVPB (14:36)
[2018-11-01] MEDS: NORepinephrine 8MG/250 ML (PMX 250 ML IV (23:27)
[2018-11-02] MEDS: AMIKACIN IVPB (04:08)
[2018-11-02] MEDS: SOD CHLORIDE 0.9% IVPB (04:08)
[2018-11-02] MEDS: INSULIN ASPART [NOVOLOG] 3 ML PEN SC ×4 (05:20→17:28)
[2018-11-02] MEDS: LANSOPRAZOLE 30 MG CAP GTB (05:21)
[2018-11-02] MEDS: IPRATROPIUM (HFA) 12.9 GM INHALER INH ×2 (07:06→15:20)
[2018-11-02] MEDS: LEVALBUTEROL (HFA) 15 GM INHALER INH ×2 (07:06→15:20)
[2018-11-02] MEDS: LORAZEPAM 2 MG INJ IV ×2 (07:49→15:13)
[2018-11-02] MEDS: QUETIAPINE 25 MG TAB GTB ×2 (08:24→20:37)
[2018-11-02] MEDS: MULTIVITAMINS 30 ML CUP GTB (08:24)
[2018-11-02] MEDS: DESMOPRESSIN 0.1 MG TAB PO ×3 (08:24→20:36)
[2018-11-02] MEDS: INSULIN GLARGINE [LANTus] (100 UNITS/ML) SYG SC (08:25)
[2018-11-02] MEDS: COLLAGENASE 5 GM (UD JAR) TOP (08:26)
[2018-11-02] MEDS: GABAPENTIN 300 MG CAP GTB ×2 (08:26→20:37)
[2018-11-02] MEDS: MIDODRINE 5 MG TAB GTB (08:26)
[2018-11-02] MEDS: LORATADINE 10 MG TAB PO (08:26)
[2018-11-02] MEDS: ASCORBIC ACID 500 MG TAB GTB (08:26)
[2018-11-02] MEDS: HYDROCORTISONE 1% 28.35 GM OINT TOP ×3 (08:27→20:37)
[2018-11-02] MEDS: POTASSIUM CHLORIDE 100 ML IVPB (13:01)
[2018-11-02] MEDS: NORepinephrine 8MG/250 ML (PMX 250 ML IV (13:02)
[2018-11-02] MEDS: MIDODRINE 10 MG TABLET PO ×2 (13:25→16:48)
[2018-11-02] MEDS: ACETAMINOPHEN 650MG/20.3ML CUP GTB (13:56)
[2018-11-02] MEDS: morphine 2 MG INJ IV (15:13)
[2018-11-02] MEDS: VANCOMYCIN 750 MG (PMX) 250 ML IVPB (15:13)
[2018-11-03] MEDS: SOD CHLORIDE 0.9% 1,000 ML IV ×3 (01:59→21:04)
[2018-11-03] MEDS: PHENYLephrine 80 MG in DEXTROSE 5% 242 ML IV ×4 (02:51→19:13)
[2018-11-03] MEDS: ACETAMINOPHEN 650MG/20.3ML CUP GTB ×2 (03:24→14:04)
[2018-11-03] MEDS: INSULIN ASPART [NOVOLOG] 3 ML PEN SC ×4 (06:00→22:00)
[2018-11-03] MEDS: LANSOPRAZOLE 30 MG CAP GTB (06:12)
[2018-11-03] MEDS: LEVALBUTEROL (HFA) 15 GM INHALER INH ×4 (07:28→23:08)
[2018-11-03] MEDS: IPRATROPIUM (HFA) 12.9 GM INHALER INH ×4 (07:28→23:08)
[2018-11-03] MEDS: DIPHENHYDRAMINE 50 MG INJ IV ×2 (07:47→17:54)
[2018-11-03] MEDS: LORAZEPAM 2 MG INJ IV ×2 (07:47→14:04)
[2018-11-03] MEDS: INSULIN GLARGINE [LANTus] (100 UNITS/ML) SYG SC (07:55)
[2018-11-03] MEDS: MIDODRINE 10 MG TABLET PO ×3 (08:18→17:17)
[2018-11-03] MEDS: DESMOPRESSIN 0.1 MG TAB PO ×3 (08:18→21:03)
[2018-11-03] MEDS: HYDROCORTISONE 1% 28.35 GM OINT TOP ×3 (08:18→21:04)
[2018-11-03] MEDS: MULTIVITAMINS 30 ML CUP GTB (08:18)
[2018-11-03] MEDS: GABAPENTIN 300 MG CAP GTB ×2 (08:18→21:06)
[2018-11-03] MEDS: LORATADINE 10 MG TAB PO (08:18)
[2018-11-03] MEDS: ASCORBIC ACID 500 MG TAB GTB (08:18)
[2018-11-03] MEDS: QUETIAPINE 25 MG TAB GTB ×2 (08:18→21:03)
[2018-11-03] MEDS: morphine 2 MG INJ IV (12:33)
[2018-11-03] MEDS: CASPOFUNGIN 70 MG in SOD CHLORIDE 0.9% 250 ML IVPB (13:54)
[2018-11-03] MEDS: metroNIDAZOLE 500 MG TAB PO ×2 (13:54→21:06)
[2018-11-03] MEDS: VANCOMYCIN 750 MG (PMX) 250 ML IVPB (15:58)
[2018-11-03] MEDS: SOD CHLORIDE 0.9% IVPB (17:17)
[2018-11-03] MEDS: AMIKACIN IVPB (17:17)
[2018-11-04] MEDS: PHENYLephrine 80 MG in DEXTROSE 5% 242 ML IV ×4 (01:02→18:48)
[2018-11-04] MEDS: ACETAMINOPHEN 650MG/20.3ML CUP GTB ×2 (02:02→08:09)
[2018-11-04] MEDS: SOD CHLORIDE 0.9% 1,000 ML IV ×3 (02:08→23:58)
[2018-11-04] MEDS: INSULIN ASPART [NOVOLOG] 3 ML PEN SC ×3 (06:00→21:32)
[2018-11-04] MEDS: metroNIDAZOLE 500 MG TAB PO ×3 (06:30→21:33)
[2018-11-04] MEDS: LANSOPRAZOLE 30 MG CAP GTB (06:30)
[2018-11-04] MEDS: LEVALBUTEROL (HFA) 15 GM INHALER INH ×2 (07:38→16:59)
[2018-11-04] MEDS: IPRATROPIUM (HFA) 12.9 GM INHALER INH ×2 (07:38→16:59)
[2018-11-04] MEDS: QUETIAPINE 25 MG TAB GTB ×2 (08:08→20:16)
[2018-11-04] MEDS: DESMOPRESSIN 0.1 MG TAB PO ×3 (08:08→20:16)
[2018-11-04] MEDS: GABAPENTIN 300 MG CAP GTB ×2 (08:08→20:16)
[2018-11-04] MEDS: LORATADINE 10 MG TAB PO (08:08)
[2018-11-04] MEDS: ASCORBIC ACID 500 MG TAB GTB (08:08)
[2018-11-04] MEDS: MIDODRINE 10 MG TABLET PO ×3 (08:08→17:21)
[2018-11-04] MEDS: MULTIVITAMINS 30 ML CUP GTB (08:09)
[2018-11-04] MEDS: HYDROCORTISONE 1% 28.35 GM OINT TOP ×3 (08:10→20:16)
[2018-11-04] MEDS: INSULIN GLARGINE [LANTus] (100 UNITS/ML) SYG SC (08:17)
[2018-11-04] MEDS: HYDROCORTISONE 100 MG INJ IV ×3 (09:36→21:32)
[2018-11-04] MEDS: CASPOFUNGIN 50 MG in SOD CHLORIDE 0.9% 250 ML IVPB (13:11)
[2018-11-04] MEDS ORDERED: VANCOMYCIN 0.85 GM in SOD CHLORIDE 0.9% 250 ML IVPB (16:00)
[2018-11-04] MEDS: DIPHENHYDRAMINE 50 MG INJ IV (20:16)
[2018-11-05] MEDS: IPRATROPIUM (HFA) 12.9 GM INHALER INH ×5 (01:30→23:28)
[2018-11-05] MEDS: LEVALBUTEROL (HFA) 15 GM INHALER INH ×5 (01:30→23:28)
[2018-11-05] MEDS: metroNIDAZOLE 500 MG TAB PO ×3 (05:02→21:10)
[2018-11-05] MEDS: HYDROCORTISONE 100 MG INJ IV ×3 (05:02→21:10)
[2018-11-05] MEDS: AMIKACIN IVPB (05:02)
[2018-11-05] MEDS: SOD CHLORIDE 0.9% IVPB (05:02)
[2018-11-05] MEDS: LANSOPRAZOLE 30 MG CAP GTB (05:03)
[2018-11-05] MEDS: DIPHENHYDRAMINE 50 MG INJ IV ×2 (05:10→18:36)
[2018-11-05] MEDS: INSULIN ASPART [NOVOLOG] 3 ML PEN SC ×3 (06:00→23:38)
[2018-11-05] MEDS: POTASSIUM CHLORIDE 20 MEQ POWDER FOR ORAL SOLN PEG ×2 (06:50→08:30)
[2018-11-05] MEDS: DESMOPRESSIN 0.1 MG TAB PO (08:30)
[2018-11-05] MEDS: LORATADINE 10 MG TAB PO (08:30)
[2018-11-05] MEDS: MIDODRINE 10 MG TABLET PO ×3 (08:30→17:00)
[2018-11-05] MEDS: ASCORBIC ACID 500 MG TAB GTB (08:30)
[2018-11-05] MEDS: GABAPENTIN 300 MG CAP GTB ×2 (08:30→20:47)
[2018-11-05] MEDS: MULTIVITAMINS 30 ML CUP GTB (08:30)
[2018-11-05] MEDS: QUETIAPINE 25 MG TAB GTB ×2 (08:30→20:47)
[2018-11-05] MEDS: HYDROCORTISONE 1% 28.35 GM OINT TOP ×3 (08:31→20:49)
[2018-11-05] MEDS: INSULIN GLARGINE [LANTus] (100 UNITS/ML) SYG SC (08:44)
[2018-11-05] MEDS: CASPOFUNGIN 50 MG in SOD CHLORIDE 0.9% 250 ML IVPB (13:46)
[2018-11-05] MEDS: SOD CHLORIDE 0.9% 1,000 ML IV ×2 (13:46→23:48)
[2018-11-05] MEDS: VANCOMYCIN HCL 250 MG/5ML POSYG PO ×2 (18:36→23:41)
[2018-11-05] MEDS: DESMOPRESSIN 4 MCG INJ SC (20:48)
[2018-11-06] MEDS: SOD CHLORIDE 0.9% 1,000 ML IV (01:48)
[2018-11-06] MEDS: INSULIN ASPART [NOVOLOG] 3 ML PEN SC ×3 (06:00→22:00)
[2018-11-06] MEDS: LANSOPRAZOLE 30 MG CAP GTB (06:19)
[2018-11-06] MEDS: VANCOMYCIN HCL 250 MG/5ML POSYG PO ×3 (06:19→17:10)
[2018-11-06] MEDS: HYDROCORTISONE 100 MG INJ IV ×4 (06:19→22:02)
[2018-11-06] MEDS: metroNIDAZOLE 500 MG TAB PO ×3 (06:19→22:03)
[2018-11-06] MEDS: LEVALBUTEROL (HFA) 15 GM INHALER INH ×3 (07:05→23:28)
[2018-11-06] MEDS: IPRATROPIUM (HFA) 12.9 GM INHALER INH ×3 (07:05→23:28)
[2018-11-06] MEDS: LORAZEPAM 2 MG INJ IV (08:08)
[2018-11-06] MEDS: GABAPENTIN 300 MG CAP GTB ×2 (08:21→20:43)
[2018-11-06] MEDS: LORATADINE 10 MG TAB PO (08:21)
[2018-11-06] MEDS: ASCORBIC ACID 500 MG TAB GTB (08:21)
[2018-11-06] MEDS: MULTIVITAMINS 30 ML CUP GTB (08:21)
[2018-11-06] MEDS: QUETIAPINE 25 MG TAB GTB ×2 (08:21→20:57)
[2018-11-06] MEDS: INSULIN GLARGINE [LANTus] (100 UNITS/ML) SYG SC (08:23)
[2018-11-06] MEDS: DIPHENHYDRAMINE 50 MG INJ IV ×2 (08:26→17:49)
[2018-11-06] MEDS: POTASSIUM CHLORIDE 20 MEQ POWDER FOR ORAL SOLN GTB (08:55)
[2018-11-06] MEDS: MIDODRINE 10 MG TABLET PO ×3 (09:00→17:00)
[2018-11-06] MEDS: DESMOPRESSIN 4 MCG INJ SC ×2 (09:31→23:53)
[2018-11-06] MEDS: HYDROCORTISONE 1% 28.35 GM OINT TOP ×3 (09:31→20:57)
[2018-11-06] MEDS: CASPOFUNGIN 50 MG in SOD CHLORIDE 0.9% 250 ML IVPB (14:26)
[2018-11-06] MEDS: hydrALAzine 20 MG INJ IV (17:10)
[2018-11-06] MEDS: SOD CHLORIDE 0.9% IVPB (17:11)
[2018-11-06] MEDS: AMIKACIN IVPB (17:11)
[2018-11-07] MEDS: LANSOPRAZOLE 30 MG CAP GTB (06:08)
[2018-11-07] MEDS: VANCOMYCIN HCL 250 MG/5ML POSYG PO ×4 (06:08→17:22)
[2018-11-07] MEDS: metroNIDAZOLE 500 MG TAB PO ×3 (06:08→22:07)
[2018-11-07] MEDS: HYDROCORTISONE 100 MG INJ IV ×3 (06:08→22:07)
[2018-11-07] MEDS: INSULIN ASPART [NOVOLOG] 3 ML PEN SC ×3 (06:59→22:00)
[2018-11-07] MEDS: DIPHENHYDRAMINE 50 MG INJ IV (08:12)
[2018-11-07] MEDS: IPRATROPIUM (HFA) 12.9 GM INHALER INH ×3 (08:47→23:57)
[2018-11-07] MEDS: LEVALBUTEROL (HFA) 15 GM INHALER INH ×3 (08:47→23:57)
[2018-11-07] MEDS: MIDODRINE 10 MG TABLET PO ×3 (09:00→16:27)
[2018-11-07] MEDS: MULTIVITAMINS 30 ML CUP GTB (09:37)
[2018-11-07] MEDS: LORATADINE 10 MG TAB PO (09:37)
[2018-11-07] MEDS: QUETIAPINE 25 MG TAB GTB ×2 (09:37→22:07)
[2018-11-07] MEDS: GABAPENTIN 300 MG CAP GTB ×2 (09:37→22:07)
[2018-11-07] MEDS: HYDROCORTISONE 1% 28.35 GM OINT TOP ×3 (09:38→22:08)
[2018-11-07] MEDS: ASCORBIC ACID 500 MG TAB GTB (09:38)
[2018-11-07] MEDS: INSULIN GLARGINE [LANTus] (100 UNITS/ML) SYG SC (10:07)
[2018-11-07] MEDS: DESMOPRESSIN 4 MCG INJ SC ×2 (11:07→21:00)
[2018-11-07] MEDS: LORAZEPAM 2 MG INJ IV (12:36)
[2018-11-07] MEDS: CASPOFUNGIN 50 MG in SOD CHLORIDE 0.9% 250 ML IVPB (13:51)
[2018-11-07] MEDS: METOPROLOL 25 MG TAB PO (22:07)
[2018-11-08] MEDS: VANCOMYCIN HCL 250 MG/5ML POSYG PO ×4 (00:48→17:22)
[2018-11-08] MEDS: AMIKACIN IVPB (05:00)
[2018-11-08] MEDS: SOD CHLORIDE 0.9% IVPB (05:00)
[2018-11-08] MEDS: LANSOPRAZOLE 30 MG CAP GTB (06:00)
[2018-11-08] MEDS: HYDROCORTISONE 100 MG INJ IV ×3 (06:00→21:23)
[2018-11-08] MEDS: INSULIN ASPART [NOVOLOG] 3 ML PEN SC ×3 (06:00→21:28)
[2018-11-08] MEDS: metroNIDAZOLE 500 MG TAB PO ×3 (06:00→21:10)
[2018-11-08] MEDS: DIPHENHYDRAMINE 50 MG INJ IV ×2 (06:12→21:23)
[2018-11-08] MEDS: INSULIN GLARGINE [LANTus] (100 UNITS/ML) SYG SC (08:10)
[2018-11-08] MEDS: IPRATROPIUM (HFA) 12.9 GM INHALER INH ×3 (08:45→23:34)
[2018-11-08] MEDS: LEVALBUTEROL (HFA) 15 GM INHALER INH ×3 (08:45→23:34)
[2018-11-08] MEDS: MIDODRINE 10 MG TABLET PO ×3 (09:00→17:00)
[2018-11-08] MEDS: ASCORBIC ACID 500 MG TAB GTB (09:34)
[2018-11-08] MEDS: LORATADINE 10 MG TAB PO (09:34)
[2018-11-08] MEDS: GABAPENTIN 300 MG CAP GTB ×2 (09:34→21:11)
[2018-11-08] MEDS: MULTIVITAMINS 30 ML CUP GTB (09:34)
[2018-11-08] MEDS: METOPROLOL 25 MG TAB PO ×2 (09:35→21:11)
[2018-11-08] MEDS: HYDROCORTISONE 1% 28.35 GM OINT TOP ×3 (09:36→21:08)
[2018-11-08] MEDS: DESMOPRESSIN 4 MCG INJ SC ×2 (09:41→21:19)
[2018-11-08] MEDS: QUETIAPINE 25 MG TAB GTB ×2 (09:41→21:10)
[2018-11-08] MEDS: hydrOXYzine HCL 10 MG TAB GTB (13:47)
[2018-11-08] MEDS: CASPOFUNGIN 50 MG in SOD CHLORIDE 0.9% 250 ML IVPB (13:47)
[2018-11-08] MEDS: LORAZEPAM 2 MG INJ IV (15:59)
[2018-11-09] MEDS: HYDROCORTISONE 100 MG INJ IV ×3 (05:03→21:52)
[2018-11-09] MEDS: VANCOMYCIN HCL 250 MG/5ML POSYG PO ×5 (05:04→23:20)
[2018-11-09] MEDS: metroNIDAZOLE 500 MG TAB PO ×3 (05:06→21:53)
[2018-11-09] MEDS: LANSOPRAZOLE 30 MG CAP GTB (05:06)
[2018-11-09] MEDS: INSULIN ASPART [NOVOLOG] 3 ML PEN SC ×3 (05:21→22:00)
[2018-11-09] MEDS: IPRATROPIUM (HFA) 12.9 GM INHALER INH ×3 (07:40→23:01)
[2018-11-09] MEDS: LEVALBUTEROL (HFA) 15 GM INHALER INH ×3 (07:40→23:01)
[2018-11-09] MEDS: MIDODRINE 10 MG TABLET PO (09:00)
[2018-11-09] MEDS: MULTIVITAMINS 30 ML CUP GTB (09:06)
[2018-11-09] MEDS: ASCORBIC ACID 500 MG TAB GTB (09:07)
[2018-11-09] MEDS: GABAPENTIN 300 MG CAP GTB ×2 (09:07→21:51)
[2018-11-09] MEDS: LORATADINE 10 MG TAB PO (09:07)
[2018-11-09] MEDS: METOPROLOL 25 MG TAB PO ×2 (09:07→21:52)
[2018-11-09] MEDS: QUETIAPINE 25 MG TAB GTB ×2 (09:07→21:51)
[2018-11-09] MEDS: DESMOPRESSIN 4 MCG INJ SC ×2 (09:08→21:53)
[2018-11-09] MEDS: DIPHENHYDRAMINE 50 MG INJ IV ×2 (09:10→21:57)
[2018-11-09] MEDS: INSULIN GLARGINE [LANTus] (100 UNITS/ML) SYG SC (09:12)
[2018-11-09] MEDS: HYDROCORTISONE 1% 28.35 GM OINT TOP ×3 (09:13→21:52)
[2018-11-09] MEDS: LORAZEPAM 2 MG INJ IV (10:14)
[2018-11-09] MEDS: CASPOFUNGIN 50 MG in SOD CHLORIDE 0.9% 250 ML IVPB (13:40)
[2018-11-09] MEDS: POTASSIUM CHLORIDE 20 MEQ POWDER FOR ORAL SOLN GTB ×3 (15:08→22:01)
[2018-11-09] MEDS: SOD CHLORIDE 0.9% IVPB (17:18)
[2018-11-09] MEDS: AMIKACIN IVPB (17:18)
[2018-11-10] MEDS: LORAZEPAM 2 MG INJ IV ×2 (03:45→10:08)
[2018-11-10] MEDS: hydrOXYzine HCL 10 MG TAB GTB (03:46)
[2018-11-10] MEDS: metroNIDAZOLE 500 MG TAB PO ×3 (05:30→21:24)
[2018-11-10] MEDS: LANSOPRAZOLE 30 MG CAP GTB (05:30)
[2018-11-10] MEDS: HYDROCORTISONE 100 MG INJ IV ×3 (05:30→21:23)
[2018-11-10] MEDS: VANCOMYCIN HCL 250 MG/5ML POSYG PO ×3 (05:33→18:40)
[2018-11-10] MEDS: INSULIN ASPART [NOVOLOG] 3 ML PEN SC ×3 (05:53→21:27)
[2018-11-10] MEDS: DIPHENHYDRAMINE 50 MG INJ IV ×2 (07:51→18:42)
[2018-11-10] MEDS: POTASSIUM CHLORIDE 20 MEQ POWDER FOR ORAL SOLN GTB (07:55)
[2018-11-10] MEDS: GABAPENTIN 300 MG CAP GTB ×2 (07:55→21:24)
[2018-11-10] MEDS: LORATADINE 10 MG TAB PO (07:55)
[2018-11-10] MEDS: MULTIVITAMINS 30 ML CUP GTB (07:55)
[2018-11-10] MEDS: QUETIAPINE 25 MG TAB GTB ×2 (07:56→21:23)
[2018-11-10] MEDS: ASCORBIC ACID 500 MG TAB GTB (07:56)
[2018-11-10] MEDS: METOPROLOL 25 MG TAB PO ×2 (07:56→21:24)
[2018-11-10] MEDS: INSULIN GLARGINE [LANTus] (100 UNITS/ML) SYG SC (07:57)
[2018-11-10] MEDS: HYDROCORTISONE 1% 28.35 GM OINT TOP ×3 (07:58→21:29)
[2018-11-10] MEDS: IPRATROPIUM (HFA) 12.9 GM INHALER INH (09:56)
[2018-11-10] MEDS: LEVALBUTEROL (HFA) 15 GM INHALER INH (09:56)
[2018-11-10] MEDS: DESMOPRESSIN 4 MCG INJ SC ×2 (11:35→21:34)
[2018-11-10] MEDS: CASPOFUNGIN 50 MG in SOD CHLORIDE 0.9% 250 ML IVPB (13:24)
[2018-11-11] MEDS: VANCOMYCIN HCL 250 MG/5ML POSYG PO ×4 (00:10→18:25)
[2018-11-11] MEDS: LEVALBUTEROL (HFA) 15 GM INHALER INH ×4 (00:44→23:17)
[2018-11-11] MEDS: IPRATROPIUM (HFA) 12.9 GM INHALER INH ×4 (00:44→23:17)
[2018-11-11] MEDS: INSULIN ASPART [NOVOLOG] 3 ML PEN SC ×3 (05:19→21:36)
[2018-11-11] MEDS: LANSOPRAZOLE 30 MG CAP GTB (05:20)
[2018-11-11] MEDS: metroNIDAZOLE 500 MG TAB PO ×3 (05:20→21:31)
[2018-11-11] MEDS: HYDROCORTISONE 100 MG INJ IV ×3 (05:20→21:35)
[2018-11-11] MEDS: SOD CHLORIDE 0.9% IVPB (05:22)
[2018-11-11] MEDS: AMIKACIN IVPB (05:22)
[2018-11-11] MEDS: MULTIVITAMINS 30 ML CUP GTB (08:27)
[2018-11-11] MEDS: LORATADINE 10 MG TAB PO (08:27)
[2018-11-11] MEDS: DIPHENHYDRAMINE 50 MG INJ IV (08:27)
[2018-11-11] MEDS: ASCORBIC ACID 500 MG TAB GTB (08:28)
[2018-11-11] MEDS: METOPROLOL 25 MG TAB PO ×2 (08:28→21:31)
[2018-11-11] MEDS: GABAPENTIN 300 MG CAP GTB ×2 (08:28→21:31)
[2018-11-11] MEDS: QUETIAPINE 25 MG TAB GTB ×2 (08:28→21:31)
[2018-11-11] MEDS: HYDROCORTISONE 1% 28.35 GM OINT TOP ×3 (08:29→21:35)
[2018-11-11] MEDS: DESMOPRESSIN 4 MCG INJ SC ×2 (08:29→21:34)
[2018-11-11] MEDS: INSULIN GLARGINE [LANTus] (100 UNITS/ML) SYG SC (08:42)
[2018-11-11] MEDS: LORAZEPAM 2 MG INJ IV (10:39)
[2018-11-11] MEDS: hydrALAzine 20 MG INJ IV (12:35)
[2018-11-11] MEDS: CASPOFUNGIN 50 MG in SOD CHLORIDE 0.9% 250 ML IVPB (14:27)
[2018-11-12] MEDS: VANCOMYCIN HCL 250 MG/5ML POSYG PO ×5 (00:33→23:15)
[2018-11-12] MEDS: HYDROCORTISONE 100 MG INJ IV ×3 (05:18→21:52)
[2018-11-12] MEDS: LANSOPRAZOLE 30 MG CAP GTB (05:19)
[2018-11-12] MEDS: metroNIDAZOLE 500 MG TAB PO ×3 (05:19→21:55)
[2018-11-12] MEDS: INSULIN ASPART [NOVOLOG] 3 ML PEN SC ×3 (05:28→21:59)
[2018-11-12] MEDS: IPRATROPIUM (HFA) 12.9 GM INHALER INH ×3 (09:11→20:08)
[2018-11-12] MEDS: LEVALBUTEROL (HFA) 15 GM INHALER INH ×3 (09:11→20:08)
[2018-11-12] MEDS: LOPERAMIDE HCL 1 MG/5 ML LIQUID (10 ML UD CUP) GTB (09:32)
[2018-11-12] MEDS: DESMOPRESSIN 4 MCG INJ SC ×2 (09:33→21:50)
[2018-11-12] MEDS: LORATADINE 10 MG TAB PO (09:33)
[2018-11-12] MEDS: QUETIAPINE 25 MG TAB GTB ×2 (09:33→21:49)
[2018-11-12] MEDS: MULTIVITAMINS 30 ML CUP GTB (09:33)
[2018-11-12] MEDS: GABAPENTIN 300 MG CAP GTB ×2 (09:33→21:49)
[2018-11-12] MEDS: ASCORBIC ACID 500 MG TAB GTB (09:33)
[2018-11-12] MEDS: DIPHENHYDRAMINE 50 MG INJ IV ×2 (09:33→21:52)
[2018-11-12] MEDS: ACETAMINOPHEN 650MG/20.3ML CUP GTB (09:33)
[2018-11-12] MEDS: HYDROCORTISONE 1% 28.35 GM OINT TOP ×3 (09:34→21:52)
[2018-11-12] MEDS: METOPROLOL 25 MG TAB PO ×2 (09:35→21:50)
[2018-11-12] MEDS: INSULIN GLARGINE [LANTus] (100 UNITS/ML) SYG SC (09:41)
[2018-11-12] MEDS: LORAZEPAM 2 MG INJ IV (14:14)
[2018-11-12] MEDS: POTASSIUM CHLORIDE 100 ML IVPB (17:16)
[2018-11-12] MEDS: POTASSIUM CHLORIDE 20 MEQ POWDER FOR ORAL SOLN GTB (17:16)
[2018-11-12] MEDS: ACETAZOLAMIDE 500 MG INJ IV (21:45)
[2018-11-13] MEDS: HYDROCORTISONE 100 MG INJ IV ×3 (05:38→21:23)
[2018-11-13] MEDS: metroNIDAZOLE 500 MG TAB PO ×3 (05:41→21:26)
[2018-11-13] MEDS: LANSOPRAZOLE 30 MG CAP GTB (05:42)
[2018-11-13] MEDS: VANCOMYCIN HCL 250 MG/5ML POSYG PO ×3 (05:46→17:05)
[2018-11-13] MEDS: INSULIN ASPART [NOVOLOG] 3 ML PEN SC ×3 (05:46→21:31)
[2018-11-13] MEDS: LEVALBUTEROL (HFA) 15 GM INHALER INH ×3 (08:27→23:39)
[2018-11-13] MEDS: IPRATROPIUM (HFA) 12.9 GM INHALER INH ×3 (08:27→23:39)
[2018-11-13] MEDS: GABAPENTIN 300 MG CAP GTB ×2 (09:33→21:18)
[2018-11-13] MEDS: QUETIAPINE 25 MG TAB GTB ×2 (09:33→21:18)
[2018-11-13] MEDS: ASCORBIC ACID 500 MG TAB GTB (09:33)
[2018-11-13] MEDS: MULTIVITAMINS 30 ML CUP GTB (09:34)
[2018-11-13] MEDS: ACETAMINOPHEN 650MG/20.3ML CUP GTB (09:34)
[2018-11-13] MEDS: POTASSIUM CHLORIDE 20 MEQ POWDER FOR ORAL SOLN GTB ×2 (09:34→14:00)
[2018-11-13] MEDS: HYDROCORTISONE 1% 28.35 GM OINT TOP ×3 (09:35→21:23)
[2018-11-13] MEDS: DESMOPRESSIN 4 MCG INJ SC ×2 (09:35→21:21)
[2018-11-13] MEDS: METOPROLOL 25 MG TAB PO ×2 (09:41→21:20)
[2018-11-13] MEDS: LORATADINE 10 MG TAB PO (09:41)
[2018-11-13] MEDS: hydrALAzine 20 MG INJ IV (09:42)
[2018-11-13] MEDS: INSULIN GLARGINE [LANTus] (100 UNITS/ML) SYG SC (09:45)
[2018-11-13] MEDS: LORAZEPAM 2 MG INJ IV (10:32)
[2018-11-13] MEDS: DIPHENHYDRAMINE 50 MG INJ IV ×2 (12:57→21:27)
[2018-11-13] MEDS: hydrOXYzine HCL 10 MG TAB GTB (14:36)
[2018-11-13] MEDS: SACCHAROMYCES BOULARDII 250 MG CAP PO (21:19)
[2018-11-14] MEDS: VANCOMYCIN HCL 250 MG/5ML POSYG PO ×4 (00:29→18:06)
[2018-11-14] MEDS: metroNIDAZOLE 500 MG TAB PO ×3 (05:24→22:33)
[2018-11-14] MEDS: LANSOPRAZOLE 30 MG CAP GTB (05:25)
[2018-11-14] MEDS: HYDROCORTISONE 100 MG INJ IV ×3 (05:25→22:32)
[2018-11-14] MEDS: INSULIN ASPART [NOVOLOG] 3 ML PEN SC ×3 (05:39→22:00)
[2018-11-14] MEDS: DIPHENHYDRAMINE 50 MG INJ IV ×3 (05:46→22:49)
[2018-11-14] MEDS: LEVALBUTEROL (HFA) 15 GM INHALER INH ×3 (07:58→23:03)
[2018-11-14] MEDS: IPRATROPIUM (HFA) 12.9 GM INHALER INH ×3 (07:58→23:03)
[2018-11-14] MEDS: MULTIVITAMINS 30 ML CUP GTB (08:21)
[2018-11-14] MEDS: DESMOPRESSIN 4 MCG INJ SC ×2 (08:21→22:32)
[2018-11-14] MEDS: ASCORBIC ACID 500 MG TAB GTB (08:30)
[2018-11-14] MEDS: GABAPENTIN 300 MG CAP GTB ×2 (08:30→22:29)
[2018-11-14] MEDS: QUETIAPINE 25 MG TAB GTB ×2 (08:30→22:30)
[2018-11-14] MEDS: SACCHAROMYCES BOULARDII 250 MG CAP PO ×2 (08:30→22:30)
[2018-11-14] MEDS: LORATADINE 10 MG TAB PO (08:30)
[2018-11-14] MEDS: METOPROLOL 25 MG TAB PO ×2 (08:32→22:31)
[2018-11-14] MEDS: HYDROCORTISONE 1% 28.35 GM OINT TOP ×3 (08:33→21:00)
[2018-11-14] MEDS: INSULIN GLARGINE [LANTus] (100 UNITS/ML) SYG SC (09:45)
[2018-11-14] MEDS: POTASSIUM CHLORIDE 20 MEQ POWDER FOR ORAL SOLN GTB ×2 (15:35→22:30)
[2018-11-15] MEDS: LANSOPRAZOLE 30 MG CAP GTB (05:41)
[2018-11-15] MEDS: HYDROCORTISONE 100 MG INJ IV ×3 (05:42→21:28)
[2018-11-15] MEDS: metroNIDAZOLE 500 MG TAB PO ×3 (05:42→22:44)
[2018-11-15] MEDS: VANCOMYCIN HCL 250 MG/5ML POSYG PO ×5 (05:44→21:29)
[2018-11-15] MEDS: INSULIN ASPART [NOVOLOG] 3 ML PEN SC ×3 (05:54→22:00)
[2018-11-15] MEDS: DIPHENHYDRAMINE 50 MG INJ IV ×2 (07:10→21:30)
[2018-11-15] MEDS: LEVALBUTEROL (HFA) 15 GM INHALER INH ×3 (08:12→23:59)
[2018-11-15] MEDS: IPRATROPIUM (HFA) 12.9 GM INHALER INH ×2 (08:12→15:46)
[2018-11-15] MEDS: HYDROCORTISONE 1% 28.35 GM OINT TOP ×3 (09:31→21:28)
[2018-11-15] MEDS: MULTIVITAMINS 30 ML CUP GTB (09:31)
[2018-11-15] MEDS: POTASSIUM CHLORIDE 20 MEQ POWDER FOR ORAL SOLN GTB ×2 (09:32→21:26)
[2018-11-15] MEDS: GABAPENTIN 300 MG CAP GTB ×2 (09:32→21:26)
[2018-11-15] MEDS: LORATADINE 10 MG TAB PO (09:32)
[2018-11-15] MEDS: ASCORBIC ACID 500 MG TAB GTB (09:32)
[2018-11-15] MEDS: QUETIAPINE 25 MG TAB GTB ×2 (09:32→21:26)
[2018-11-15] MEDS: METOPROLOL 25 MG TAB PO ×2 (09:34→21:27)
[2018-11-15] MEDS: INSULIN GLARGINE [LANTus] (100 UNITS/ML) SYG SC (09:52)
[2018-11-15] MEDS: DESMOPRESSIN 4 MCG INJ SC ×2 (13:00→21:28)
[2018-11-15] MEDS: SACCHAROMYCES BOULARDII 250 MG CAP PO ×2 (13:01→21:26)
[2018-11-15] MEDS: POTASSIUM CHLORIDE (SR) 20 MEQ TAB PO (22:46)
[2018-11-16] MEDS: INSULIN ASPART [NOVOLOG] 3 ML PEN SC ×3 (06:00→22:00)
[2018-11-16] MEDS: LANSOPRAZOLE 30 MG CAP GTB (06:04)
[2018-11-16] MEDS: HYDROCORTISONE 100 MG INJ IV ×3 (06:05→22:08)
[2018-11-16] MEDS: metroNIDAZOLE 500 MG TAB PO ×3 (06:06→22:09)
[2018-11-16] MEDS: VANCOMYCIN HCL 250 MG/5ML POSYG PO ×3 (06:06→17:42)
[2018-11-16] MEDS: LEVALBUTEROL (HFA) 15 GM INHALER INH ×3 (09:15→23:26)
[2018-11-16] MEDS: IPRATROPIUM (HFA) 12.9 GM INHALER INH ×4 (09:15→23:26)
[2018-11-16] MEDS: SACCHAROMYCES BOULARDII 250 MG CAP PO ×2 (10:00→22:07)
[2018-11-16] MEDS: GABAPENTIN 300 MG CAP GTB ×2 (10:00→22:06)
[2018-11-16] MEDS: POTASSIUM CHLORIDE 20 MEQ POWDER FOR ORAL SOLN GTB ×2 (10:00→22:06)
[2018-11-16] MEDS: QUETIAPINE 25 MG TAB GTB ×3 (10:01→22:07)
[2018-11-16] MEDS: LORATADINE 10 MG TAB PO (10:01)
[2018-11-16] MEDS: MULTIVITAMINS 30 ML CUP GTB (10:01)
[2018-11-16] MEDS: ASCORBIC ACID 500 MG TAB GTB (10:02)
[2018-11-16] MEDS: METOPROLOL 25 MG TAB PO ×2 (10:02→22:07)
[2018-11-16] MEDS: DESMOPRESSIN 4 MCG INJ SC ×2 (10:03→22:08)
[2018-11-16] MEDS: HYDROCORTISONE 1% 28.35 GM OINT TOP ×3 (10:03→22:08)
[2018-11-16] MEDS: INSULIN GLARGINE [LANTus] (100 UNITS/ML) SYG SC (10:19)
[2018-11-16] MEDS: hydrOXYzine HCL 10 MG TAB GTB (22:09)
[2018-11-16] MEDS: POTASSIUM CHLORIDE (SR) 20 MEQ TAB PO (22:31)
[2018-11-17] MEDS: LANSOPRAZOLE 30 MG CAP GTB (05:28)
[2018-11-17] MEDS: HYDROCORTISONE 100 MG INJ IV ×3 (05:29→21:41)
[2018-11-17] MEDS: metroNIDAZOLE 500 MG TAB PO ×2 (05:30→14:26)
[2018-11-17] MEDS: VANCOMYCIN HCL 250 MG/5ML POSYG PO ×4 (05:31→18:17)
[2018-11-17] MEDS: INSULIN ASPART [NOVOLOG] 3 ML PEN SC ×3 (05:50→22:00)
[2018-11-17] MEDS: IPRATROPIUM (HFA) 12.9 GM INHALER INH ×2 (07:16→15:55)
[2018-11-17] MEDS: LEVALBUTEROL (HFA) 15 GM INHALER INH ×2 (07:17→15:55)
[2018-11-17] MEDS: MULTIVITAMINS 30 ML CUP GTB (08:59)
[2018-11-17] MEDS: DESMOPRESSIN 4 MCG INJ SC ×2 (09:00→21:41)
[2018-11-17] MEDS: QUETIAPINE 25 MG TAB GTB ×3 (09:00→21:39)
[2018-11-17] MEDS: POTASSIUM CHLORIDE 20 MEQ POWDER FOR ORAL SOLN PO (09:00)
[2018-11-17] MEDS: HYDROCORTISONE 1% 28.35 GM OINT TOP ×3 (09:00→21:40)
[2018-11-17] MEDS: ASCORBIC ACID 500 MG TAB GTB (09:01)
[2018-11-17] MEDS: SACCHAROMYCES BOULARDII 250 MG CAP PO ×2 (09:01→21:39)
[2018-11-17] MEDS: METOPROLOL 25 MG TAB PO ×2 (09:01→21:40)
[2018-11-17] MEDS: LORATADINE 10 MG TAB PO (09:02)
[2018-11-17] MEDS: GABAPENTIN 300 MG CAP GTB ×2 (09:02→21:39)
[2018-11-17] MEDS: POTASSIUM CHLORIDE 20 MEQ POWDER FOR ORAL SOLN GTB ×2 (09:02→21:39)
[2018-11-17] MEDS: INSULIN GLARGINE [LANTus] (100 UNITS/ML) SYG SC (12:54)
[2018-11-17] MEDS: DEXTROSE 50% 50 ML SYRINGE IV (22:27)
[2018-11-18] MEDS: hydrOXYzine HCL 10 MG TAB GTB ×2 (00:16→21:31)
[2018-11-18] MEDS: VANCOMYCIN HCL 250 MG/5ML POSYG PO ×4 (00:16→17:53)
[2018-11-18] MEDS: IPRATROPIUM (HFA) 12.9 GM INHALER INH ×4 (01:12→23:26)
[2018-11-18] MEDS: LEVALBUTEROL (HFA) 15 GM INHALER INH ×4 (01:12→23:26)
[2018-11-18] MEDS: DIPHENHYDRAMINE 50 MG INJ IV ×2 (04:40→11:45)
[2018-11-18] MEDS: LANSOPRAZOLE 30 MG CAP GTB (05:03)
[2018-11-18] MEDS: INSULIN ASPART [NOVOLOG] 3 ML PEN SC ×3 (05:13→22:00)
[2018-11-18] MEDS: HYDROCORTISONE 100 MG INJ IV ×3 (05:13→21:31)
[2018-11-18] MEDS: ASCORBIC ACID 500 MG TAB GTB (08:55)
[2018-11-18] MEDS: MULTIVITAMINS 30 ML CUP GTB (08:55)
[2018-11-18] MEDS: POTASSIUM CHLORIDE 20 MEQ POWDER FOR ORAL SOLN GTB ×2 (08:55→21:29)
[2018-11-18] MEDS: SACCHAROMYCES BOULARDII 250 MG CAP PO ×2 (08:55→21:30)
[2018-11-18] MEDS: QUETIAPINE 25 MG TAB GTB ×3 (08:56→21:31)
[2018-11-18] MEDS: HYDROCORTISONE 1% 28.35 GM OINT TOP ×3 (08:56→22:15)
[2018-11-18] MEDS: LORATADINE 10 MG TAB PO (08:56)
[2018-11-18] MEDS: METOPROLOL 25 MG TAB PO ×2 (08:57→21:30)
[2018-11-18] MEDS: GABAPENTIN 300 MG CAP GTB ×2 (08:57→21:30)
[2018-11-18] MEDS: INSULIN GLARGINE [LANTus] (100 UNITS/ML) SYG SC (09:07)
[2018-11-18] MEDS: DESMOPRESSIN 4 MCG INJ SC ×2 (11:37→22:15)
[2018-11-18] MEDS: LORAZEPAM 2 MG INJ IV (21:32)
[2018-11-19] MEDS: VANCOMYCIN HCL 250 MG/5ML POSYG PO ×4 (01:47→17:37)
[2018-11-19] MEDS: INSULIN ASPART [NOVOLOG] 3 ML PEN SC ×3 (06:00→21:29)
[2018-11-19] MEDS: LANSOPRAZOLE 30 MG CAP GTB (06:31)
[2018-11-19] MEDS: HYDROCORTISONE 100 MG INJ IV ×3 (06:31→21:28)
[2018-11-19] MEDS: IPRATROPIUM (HFA) 12.9 GM INHALER INH ×2 (07:54→15:39)
[2018-11-19] MEDS: LEVALBUTEROL (HFA) 15 GM INHALER INH ×2 (07:56→15:39)
[2018-11-19] MEDS: HYDROCORTISONE 1% 28.35 GM OINT TOP ×3 (08:33→21:27)
[2018-11-19] MEDS: MULTIVITAMINS 30 ML CUP GTB (08:34)
[2018-11-19] MEDS: POTASSIUM CHLORIDE 20 MEQ POWDER FOR ORAL SOLN GTB ×2 (08:35→21:26)
[2018-11-19] MEDS: DESMOPRESSIN 4 MCG INJ SC ×2 (08:36→22:11)
[2018-11-19] MEDS: SACCHAROMYCES BOULARDII 250 MG CAP PO ×2 (08:37→21:25)
[2018-11-19] MEDS: LORATADINE 10 MG TAB PO (08:38)
[2018-11-19] MEDS: GABAPENTIN 300 MG CAP GTB ×2 (08:38→21:26)
[2018-11-19] MEDS: QUETIAPINE 25 MG TAB GTB ×3 (08:38→21:25)
[2018-11-19] MEDS: METOPROLOL 25 MG TAB PO ×2 (08:38→21:27)
[2018-11-19] MEDS: ASCORBIC ACID 500 MG TAB GTB (08:38)
[2018-11-19] MEDS: INSULIN GLARGINE [LANTus] (100 UNITS/ML) SYG SC (09:02)
[2018-11-19] MEDS: LORAZEPAM 2 MG INJ IV ×2 (12:11→20:06)
[2018-11-20] MEDS: VANCOMYCIN HCL 250 MG/5ML POSYG PO ×5 (00:10→23:59)
[2018-11-20] MEDS: IPRATROPIUM (HFA) 12.9 GM INHALER INH ×3 (01:13→17:07)
[2018-11-20] MEDS: LEVALBUTEROL (HFA) 15 GM INHALER INH ×3 (01:13→17:07)
[2018-11-20] MEDS: LANSOPRAZOLE 30 MG CAP GTB (05:19)
[2018-11-20] MEDS: INSULIN ASPART [NOVOLOG] 3 ML PEN SC ×3 (05:25→21:14)
[2018-11-20] MEDS: LORAZEPAM 2 MG INJ IV ×2 (05:55→21:18)
[2018-11-20] MEDS: HYDROCORTISONE 100 MG INJ IV ×3 (05:55→21:13)
[2018-11-20] MEDS: MULTIVITAMINS 30 ML CUP GTB (10:12)
[2018-11-20] MEDS: POTASSIUM CHLORIDE 20 MEQ POWDER FOR ORAL SOLN GTB ×2 (10:13→20:07)
[2018-11-20] MEDS: SACCHAROMYCES BOULARDII 250 MG CAP PO ×2 (10:13→20:07)
[2018-11-20] MEDS: GABAPENTIN 300 MG CAP GTB ×2 (10:15→20:07)
[2018-11-20] MEDS: METOPROLOL 25 MG TAB PO ×2 (10:15→20:07)
[2018-11-20] MEDS: DESMOPRESSIN 4 MCG INJ SC ×2 (10:16→20:08)
[2018-11-20] MEDS: LORATADINE 10 MG TAB PO (10:16)
[2018-11-20] MEDS: QUETIAPINE 25 MG TAB GTB ×3 (10:16→20:07)
[2018-11-20] MEDS: ASCORBIC ACID 500 MG TAB GTB (10:16)
[2018-11-20] MEDS: DIPHENHYDRAMINE 50 MG INJ IV ×2 (10:19→20:06)
[2018-11-20] MEDS: INSULIN GLARGINE [LANTus] (100 UNITS/ML) SYG SC (10:42)
[2018-11-20] MEDS: HYDROCORTISONE 1% 28.35 GM OINT TOP ×3 (13:00→20:08)
[2018-11-20] MEDS: IVERMECTIN 3 MG TAB PO (17:06)
[2018-11-21] MEDS: IPRATROPIUM (HFA) 12.9 GM INHALER INH ×4 (00:22→23:52)
[2018-11-21] MEDS: LEVALBUTEROL (HFA) 15 GM INHALER INH ×4 (00:22→23:52)
[2018-11-21] MEDS: DIPHENHYDRAMINE 50 MG INJ IV ×3 (04:05→18:05)
[2018-11-21] MEDS: VANCOMYCIN HCL 250 MG/5ML POSYG PO ×2 (05:43→11:01)
[2018-11-21] MEDS: LANSOPRAZOLE 30 MG CAP GTB (05:43)
[2018-11-21] MEDS: HYDROCORTISONE 100 MG INJ IV ×3 (05:44→21:52)
[2018-11-21] MEDS: INSULIN ASPART [NOVOLOG] 3 ML PEN SC ×3 (05:46→21:53)
[2018-11-21] MEDS: METOPROLOL 25 MG TAB PO ×2 (09:00→21:51)
[2018-11-21] MEDS: LORAZEPAM 2 MG INJ IV (09:17)
[2018-11-21] MEDS: MULTIVITAMINS 30 ML CUP GTB (10:06)
[2018-11-21] MEDS: POTASSIUM CHLORIDE 20 MEQ POWDER FOR ORAL SOLN GTB ×2 (10:07→21:50)
[2018-11-21] MEDS: INSULIN GLARGINE [LANTus] (100 UNITS/ML) SYG SC (10:32)
[2018-11-21] MEDS: GABAPENTIN 300 MG CAP GTB ×2 (10:50→21:49)
[2018-11-21] MEDS: DESMOPRESSIN 4 MCG INJ SC ×2 (10:50→21:51)
[2018-11-21] MEDS: LORATADINE 10 MG TAB PO (10:50)
[2018-11-21] MEDS: ASCORBIC ACID 500 MG TAB GTB (10:51)
[2018-11-21] MEDS: SACCHAROMYCES BOULARDII 250 MG CAP PO ×2 (10:51→21:50)
[2018-11-21] MEDS: QUETIAPINE 25 MG TAB GTB ×3 (10:51→21:50)
[2018-11-21] MEDS: HYDROCORTISONE 1% 28.35 GM OINT TOP ×3 (10:52→21:52)
[2018-11-21] MEDS: [UNRECOGNIZED DRUG - OTHER] XX ×2 (12:00→20:01)
[2018-11-22] MEDS: hydrOXYzine HCL 10 MG TAB GTB (00:11)
[2018-11-22] MEDS: LORAZEPAM 2 MG INJ IV ×3 (03:43→18:20)
[2018-11-22] MEDS: [UNRECOGNIZED DRUG - OTHER] XX ×3 (04:00→20:00)
[2018-11-22] MEDS: INSULIN ASPART [NOVOLOG] 3 ML PEN SC ×3 (06:00→22:00)
[2018-11-22] MEDS: HYDROCORTISONE 100 MG INJ IV ×3 (06:03→22:11)
[2018-11-22] MEDS: LANSOPRAZOLE 30 MG CAP GTB (06:03)
[2018-11-22] MEDS: DIPHENHYDRAMINE 50 MG INJ IV ×2 (06:16→12:24)
[2018-11-22] MEDS: LEVALBUTEROL (HFA) 15 GM INHALER INH ×2 (07:49→17:19)
[2018-11-22] MEDS: IPRATROPIUM (HFA) 12.9 GM INHALER INH ×2 (07:49→17:19)
[2018-11-22] MEDS: POTASSIUM CHLORIDE 20 MEQ POWDER FOR ORAL SOLN GTB ×2 (09:51→22:08)
[2018-11-22] MEDS: SACCHAROMYCES BOULARDII 250 MG CAP PO ×2 (09:52→22:09)
[2018-11-22] MEDS: GABAPENTIN 300 MG CAP GTB ×2 (09:53→22:08)
[2018-11-22] MEDS: MULTIVITAMINS 30 ML CUP GTB (09:53)
[2018-11-22] MEDS: LORATADINE 10 MG TAB PO (09:54)
[2018-11-22] MEDS: QUETIAPINE 25 MG TAB GTB ×3 (09:54→22:08)
[2018-11-22] MEDS: METOPROLOL 25 MG TAB PO ×2 (09:54→22:10)
[2018-11-22] MEDS: DESMOPRESSIN 4 MCG INJ SC ×2 (09:54→22:10)
[2018-11-22] MEDS: HYDROCORTISONE 1% 28.35 GM OINT TOP ×3 (09:55→22:10)
[2018-11-22] MEDS: ASCORBIC ACID 500 MG TAB GTB (09:55)
[2018-11-22] MEDS: INSULIN GLARGINE [LANTus] (100 UNITS/ML) SYG SC (10:33)
[2018-11-23] MEDS: IPRATROPIUM (HFA) 12.9 GM INHALER INH ×4 (01:56→23:21)
[2018-11-23] MEDS: LEVALBUTEROL (HFA) 15 GM INHALER INH ×4 (01:56→23:21)
[2018-11-23] MEDS: [UNRECOGNIZED DRUG - OTHER] XX (04:00)
[2018-11-23] MEDS: INSULIN ASPART [NOVOLOG] 3 ML PEN SC ×3 (06:00→21:54)
[2018-11-23] MEDS: HYDROCORTISONE 100 MG INJ IV ×3 (06:13→21:53)
[2018-11-23] MEDS: LANSOPRAZOLE 30 MG CAP GTB (06:13)
[2018-11-23] MEDS: hydrOXYzine HCL 10 MG TAB GTB (06:13)
[2018-11-23] MEDS: DIPHENHYDRAMINE 50 MG INJ IV ×3 (09:07→23:10)
[2018-11-23] MEDS: DESMOPRESSIN 4 MCG INJ SC ×2 (09:08→21:53)
[2018-11-23] MEDS: GABAPENTIN 300 MG CAP GTB ×2 (09:08→21:51)
[2018-11-23] MEDS: ASCORBIC ACID 500 MG TAB GTB (09:09)
[2018-11-23] MEDS: SACCHAROMYCES BOULARDII 250 MG CAP PO ×2 (09:09→21:52)
[2018-11-23] MEDS: QUETIAPINE 25 MG TAB GTB ×3 (09:09→21:52)
[2018-11-23] MEDS: LORATADINE 10 MG TAB PO (09:09)
[2018-11-23] MEDS: POTASSIUM CHLORIDE 20 MEQ POWDER FOR ORAL SOLN GTB ×2 (09:10→21:51)
[2018-11-23] MEDS: METOPROLOL 25 MG TAB PO ×2 (09:10→21:52)
[2018-11-23] MEDS: MULTIVITAMINS 30 ML CUP GTB (09:11)
[2018-11-23] MEDS: HYDROCORTISONE 1% 28.35 GM OINT TOP ×3 (09:12→21:53)
[2018-11-23] MEDS: INSULIN GLARGINE [LANTus] (100 UNITS/ML) SYG SC (09:25)
[2018-11-24] MEDS: INSULIN ASPART [NOVOLOG] 3 ML PEN SC ×3 (06:00→22:00)
[2018-11-24] MEDS: LANSOPRAZOLE 30 MG CAP GTB (06:46)
[2018-11-24] MEDS: HYDROCORTISONE 100 MG INJ IV ×3 (06:46→22:06)
[2018-11-24] MEDS: DIPHENHYDRAMINE 50 MG INJ IV ×2 (07:47→22:06)
[2018-11-24] MEDS: LEVALBUTEROL (HFA) 15 GM INHALER INH ×3 (08:22→23:19)
[2018-11-24] MEDS: IPRATROPIUM (HFA) 12.9 GM INHALER INH ×3 (08:22→23:20)
[2018-11-24] MEDS: MULTIVITAMINS 30 ML CUP GTB (08:52)
[2018-11-24] MEDS: POTASSIUM CHLORIDE 20 MEQ POWDER FOR ORAL SOLN GTB ×2 (08:52→22:20)
[2018-11-24] MEDS: QUETIAPINE 25 MG TAB GTB ×3 (08:53→22:22)
[2018-11-24] MEDS: METOPROLOL 25 MG TAB PO ×2 (08:53→22:23)
[2018-11-24] MEDS: SACCHAROMYCES BOULARDII 250 MG CAP PO ×2 (08:53→22:21)
[2018-11-24] MEDS: GABAPENTIN 300 MG CAP GTB ×2 (08:53→22:23)
[2018-11-24] MEDS: LORATADINE 10 MG TAB PO (08:54)
[2018-11-24] MEDS: ASCORBIC ACID 500 MG TAB GTB (08:54)
[2018-11-24] MEDS: DESMOPRESSIN 4 MCG INJ SC ×2 (08:55→22:06)
[2018-11-24] MEDS: HYDROCORTISONE 1% 28.35 GM OINT TOP ×3 (08:55→22:23)
[2018-11-24] MEDS: INSULIN GLARGINE [LANTus] (100 UNITS/ML) SYG SC (09:01)
[2018-11-24] MEDS: hydrOXYzine HCL 10 MG TAB GTB ×2 (13:02→22:22)
[2018-11-24] MEDS: PERMETHRIN 5% 60 GM CR TOP (16:13)
[2018-11-25] MEDS: LORAZEPAM 2 MG INJ IV ×3 (00:47→21:56)
[2018-11-25] MEDS: DIPHENHYDRAMINE 50 MG INJ IV ×2 (05:47→21:56)
[2018-11-25] MEDS: INSULIN ASPART [NOVOLOG] 3 ML PEN SC ×3 (06:00→22:00)
[2018-11-25] MEDS: HYDROCORTISONE 100 MG INJ IV ×2 (07:00→13:12)
[2018-11-25] MEDS: LANSOPRAZOLE 30 MG CAP GTB (07:01)
[2018-11-25] MEDS: LEVALBUTEROL (HFA) 15 GM INHALER INH ×3 (08:53→23:28)
[2018-11-25] MEDS: IPRATROPIUM (HFA) 12.9 GM INHALER INH ×3 (08:53→23:28)
[2018-11-25] MEDS: GABAPENTIN 300 MG CAP GTB (09:09)
[2018-11-25] MEDS: SACCHAROMYCES BOULARDII 250 MG CAP PO (09:09)
[2018-11-25] MEDS: LORATADINE 10 MG TAB PO (09:09)
[2018-11-25] MEDS: QUETIAPINE 25 MG TAB GTB ×2 (09:09→13:11)
[2018-11-25] MEDS: METOPROLOL 25 MG TAB PO (09:10)
[2018-11-25] MEDS: ASCORBIC ACID 500 MG TAB GTB (09:10)
[2018-11-25] MEDS: MULTIVITAMINS 30 ML CUP GTB (09:10)
[2018-11-25] MEDS: DESMOPRESSIN 4 MCG INJ SC (09:12)
[2018-11-25] MEDS: HYDROCORTISONE 1% 28.35 GM OINT TOP ×2 (09:12→13:12)
[2018-11-25] MEDS: INSULIN GLARGINE [LANTus] (100 UNITS/ML) SYG SC (09:42)
[2018-11-25] MEDS: POTASSIUM CHLORIDE 20 MEQ POWDER FOR ORAL SOLN GTB ×2 (13:10→21:58)
[2018-11-25] MEDS: LOPERAMIDE HCL 1 MG/5 ML LIQUID (10 ML UD CUP) GTB (21:57)
[2018-11-26] MEDS: HYDROCORTISONE 100 MG INJ IV ×4 (00:05→22:21)
[2018-11-26] MEDS: QUETIAPINE 25 MG TAB GTB ×4 (00:06→20:56)
[2018-11-26] MEDS: SACCHAROMYCES BOULARDII 250 MG CAP PO ×3 (00:06→20:55)
[2018-11-26] MEDS: DESMOPRESSIN 4 MCG INJ SC ×3 (00:06→20:57)
[2018-11-26] MEDS: METOPROLOL 25 MG TAB PO ×3 (00:07→20:56)
[2018-11-26] MEDS: hydrOXYzine HCL 10 MG TAB GTB ×3 (00:07→22:21)
[2018-11-26] MEDS: GABAPENTIN 300 MG CAP GTB ×3 (00:08→20:56)
[2018-11-26] MEDS: HYDROCORTISONE 1% 28.35 GM OINT TOP ×4 (00:08→20:57)
[2018-11-26] MEDS: LOPERAMIDE HCL 1 MG/5 ML LIQUID (10 ML UD CUP) GTB (05:33)
[2018-11-26] MEDS: LANSOPRAZOLE 30 MG CAP GTB (05:34)
[2018-11-26] MEDS: DIPHENHYDRAMINE 50 MG INJ IV (05:35)
[2018-11-26] MEDS: LORAZEPAM 2 MG INJ IV ×2 (05:35→15:32)
[2018-11-26] MEDS: INSULIN ASPART [NOVOLOG] 3 ML PEN SC ×3 (05:57→22:00)
[2018-11-26] MEDS: MULTIVITAMINS 30 ML CUP GTB (08:57)
[2018-11-26] MEDS: LORATADINE 10 MG TAB PO (08:58)
[2018-11-26] MEDS: POTASSIUM CHLORIDE 20 MEQ POWDER FOR ORAL SOLN GTB ×2 (08:58→20:55)
[2018-11-26] MEDS: ASCORBIC ACID 500 MG TAB GTB (08:58)
[2018-11-26] MEDS: IPRATROPIUM (HFA) 12.9 GM INHALER INH ×3 (09:08→23:40)
[2018-11-26] MEDS: LEVALBUTEROL (HFA) 15 GM INHALER INH ×3 (09:08→23:40)
[2018-11-26] MEDS: INSULIN GLARGINE [LANTus] (100 UNITS/ML) SYG SC (09:28)
[2018-11-27] MEDS: INSULIN ASPART [NOVOLOG] 3 ML PEN SC ×3 (06:00→22:00)
[2018-11-27] MEDS: LANSOPRAZOLE 30 MG CAP GTB (06:06)
[2018-11-27] MEDS: DIPHENHYDRAMINE 50 MG INJ IV (06:06)
[2018-11-27] MEDS: HYDROCORTISONE 100 MG INJ IV ×3 (06:06→22:00)
[2018-11-27] MEDS: LEVALBUTEROL (HFA) 15 GM INHALER INH ×3 (08:04→23:41)
[2018-11-27] MEDS: IPRATROPIUM (HFA) 12.9 GM INHALER INH ×3 (08:04→23:41)
[2018-11-27] MEDS: MULTIVITAMINS 30 ML CUP GTB (08:41)
[2018-11-27] MEDS: hydrOXYzine HCL 10 MG TAB GTB ×2 (08:42→18:20)
[2018-11-27] MEDS: SACCHAROMYCES BOULARDII 250 MG CAP PO ×2 (08:42→22:31)
[2018-11-27] MEDS: METOPROLOL 25 MG TAB PO ×2 (08:42→22:30)
[2018-11-27] MEDS: GABAPENTIN 300 MG CAP GTB ×2 (08:42→22:29)
[2018-11-27] MEDS: POTASSIUM CHLORIDE 20 MEQ POWDER FOR ORAL SOLN GTB ×2 (08:42→22:28)
[2018-11-27] MEDS: ASCORBIC ACID 500 MG TAB GTB (08:43)
[2018-11-27] MEDS: QUETIAPINE 25 MG TAB GTB ×3 (08:43→22:30)
[2018-11-27] MEDS: DESMOPRESSIN 4 MCG INJ SC ×2 (08:43→21:00)
[2018-11-27] MEDS: LORATADINE 10 MG TAB PO (08:43)
[2018-11-27] MEDS: LORAZEPAM 2 MG INJ IV ×3 (08:44→19:07)
[2018-11-27] MEDS: HYDROCORTISONE 1% 28.35 GM OINT TOP ×3 (08:44→22:27)
[2018-11-27] MEDS: INSULIN GLARGINE [LANTus] (100 UNITS/ML) SYG SC (10:16)
[2018-11-27] MEDS: IVERMECTIN 3 MG TAB PO (13:14)
[2018-11-27] MEDS: VALPROIC ACID LIQUID CUP 250 MG/5 ML CUP PO ×2 (13:15→22:28)
[2018-11-27] MEDS: VALPROIC ACID 250 MG CAP PO (22:29)
[2018-11-28] MEDS: INSULIN ASPART [NOVOLOG] 3 ML PEN SC ×3 (06:00→21:49)
[2018-11-28] MEDS: LANSOPRAZOLE 30 MG CAP GTB (06:16)
[2018-11-28] MEDS: HYDROCORTISONE 100 MG INJ IV ×3 (06:17→21:38)
[2018-11-28] MEDS: LEVALBUTEROL (HFA) 15 GM INHALER INH ×3 (08:12→23:11)
[2018-11-28] MEDS: IPRATROPIUM (HFA) 12.9 GM INHALER INH ×3 (08:12→23:11)
[2018-11-28] MEDS: ASCORBIC ACID 500 MG TAB GTB (09:00)
[2018-11-28] MEDS: DESMOPRESSIN 4 MCG INJ SC ×2 (09:31→21:39)
[2018-11-28] MEDS: SACCHAROMYCES BOULARDII 250 MG CAP PO ×2 (09:32→21:38)
[2018-11-28] MEDS: METOPROLOL 25 MG TAB PO ×2 (09:32→21:40)
[2018-11-28] MEDS: GABAPENTIN 300 MG CAP GTB ×2 (09:32→21:40)
[2018-11-28] MEDS: VALPROIC ACID LIQUID CUP 250 MG/5 ML CUP PO ×2 (09:32→21:37)
[2018-11-28] MEDS: POTASSIUM CHLORIDE 20 MEQ POWDER FOR ORAL SOLN GTB ×2 (09:32→21:38)
[2018-11-28] MEDS: QUETIAPINE 25 MG TAB GTB ×3 (09:33→21:39)
[2018-11-28] MEDS: LORATADINE 10 MG TAB PO (09:33)
[2018-11-28] MEDS: INSULIN GLARGINE [LANTus] (100 UNITS/ML) SYG SC (09:50)
[2018-11-28] MEDS: HYDROCORTISONE 1% 28.35 GM OINT TOP ×3 (10:03→21:37)
[2018-11-28] MEDS: MULTIVITAMINS 30 ML CUP GTB (10:03)
[2018-11-28] MEDS: VALPROIC ACID 250 MG CAP PO (21:39)
[2018-11-29] MEDS: INSULIN ASPART [NOVOLOG] 3 ML PEN SC ×3 (06:00→22:00)
[2018-11-29] MEDS: hydrOXYzine HCL 10 MG TAB GTB (06:15)
[2018-11-29] MEDS: HYDROCORTISONE 100 MG INJ IV ×3 (06:16→22:07)
[2018-11-29] MEDS: LEVALBUTEROL (HFA) 15 GM INHALER INH ×2 (07:41→16:00)
[2018-11-29] MEDS: IPRATROPIUM (HFA) 12.9 GM INHALER INH ×2 (07:41→16:00)
[2018-11-29] MEDS: MULTIVITAMINS 30 ML CUP GTB (09:09)
[2018-11-29] MEDS: VALPROIC ACID LIQUID CUP 250 MG/5 ML CUP PO ×2 (09:09→21:06)
[2018-11-29] MEDS: POTASSIUM CHLORIDE 20 MEQ POWDER FOR ORAL SOLN GTB ×2 (09:11→21:00)
[2018-11-29] MEDS: QUETIAPINE 25 MG TAB GTB ×3 (09:11→21:06)
[2018-11-29] MEDS: SACCHAROMYCES BOULARDII 250 MG CAP PO ×2 (09:11→21:06)
[2018-11-29] MEDS: METOPROLOL 25 MG TAB PO ×2 (09:12→20:42)
[2018-11-29] MEDS: ASCORBIC ACID 500 MG TAB GTB (09:12)
[2018-11-29] MEDS: LORATADINE 10 MG TAB PO (09:12)
[2018-11-29] MEDS: GABAPENTIN 300 MG CAP GTB ×2 (09:12→21:06)
[2018-11-29] MEDS: HYDROCORTISONE 1% 28.35 GM OINT TOP ×3 (09:13→21:12)
[2018-11-29] MEDS: DESMOPRESSIN 4 MCG INJ SC ×2 (09:13→21:09)
[2018-11-29] MEDS: INSULIN GLARGINE [LANTus] (100 UNITS/ML) SYG SC (10:19)
[2018-11-29] MEDS ORDERED: NORepinephrine 8MG/250 ML (PMX 250 ML (16:23)
[2018-11-29] MEDS: NORepinephrine 8MG/250 ML (PMX 250 ML IV (17:10)
[2018-11-29] MEDS ORDERED: PHENYLephrine 20MG IN 250 ML 250 ML IV (17:30)
[2018-11-29] MEDS ORDERED: VANCOMYCIN IV PER PHARMACY XX (19:00)
[2018-11-29] MEDS ORDERED: VANCOMYCIN 1 GM (PMX) 250 ML IVPB (19:00)
[2018-11-29] MEDS: MEROPENEM 1 GM/50ML(PMX) 50 ML IVPB (21:01)
[2018-11-29] MEDS: VALPROIC ACID 250 MG CAP PO (21:06)
[2018-11-29] MEDS: VANCOMYCIN 1.25 GM/NS 250 ML 250 ML IVPB (22:05)
[2018-11-30] MEDS: NORepinephrine 8MG/250 ML (PMX 250 ML IV (00:08)
[2018-11-30] MEDS: IPRATROPIUM (HFA) 12.9 GM INHALER INH ×3 (00:51→16:00)
[2018-11-30] MEDS: LEVALBUTEROL (HFA) 15 GM INHALER INH ×3 (00:51→16:00)
[2018-11-30] MEDS: DIPHENHYDRAMINE 50 MG INJ IV ×2 (01:42→09:22)
[2018-11-30] MEDS: INSULIN ASPART [NOVOLOG] 3 ML PEN SC ×3 (05:21→21:07)
[2018-11-30] MEDS: HYDROCORTISONE 100 MG INJ IV ×3 (05:21→21:05)
[2018-11-30] MEDS: MULTIVITAMINS 30 ML CUP GTB (08:47)
[2018-11-30] MEDS: SACCHAROMYCES BOULARDII 250 MG CAP PO ×2 (08:48→20:26)
[2018-11-30] MEDS: VALPROIC ACID LIQUID CUP 250 MG/5 ML CUP PO ×2 (08:48→20:27)
[2018-11-30] MEDS: MEROPENEM 1 GM/50ML(PMX) 50 ML IVPB ×2 (08:48→20:29)
[2018-11-30] MEDS: LORATADINE 10 MG TAB PO (08:49)
[2018-11-30] MEDS: ASCORBIC ACID 500 MG TAB GTB (08:49)
[2018-11-30] MEDS: QUETIAPINE 25 MG TAB GTB ×3 (08:49→20:25)
[2018-11-30] MEDS: GABAPENTIN 300 MG CAP GTB ×2 (08:50→20:25)
[2018-11-30] MEDS: METOPROLOL 25 MG TAB PO ×2 (08:55→20:26)
[2018-11-30] MEDS: POTASSIUM CHLORIDE 20 MEQ POWDER FOR ORAL SOLN GTB (09:00)
[2018-11-30] MEDS: HYDROCORTISONE 1% 28.35 GM OINT TOP ×3 (09:04→20:29)
[2018-11-30] MEDS: DESMOPRESSIN 4 MCG INJ SC ×2 (09:24→20:30)
[2018-11-30] MEDS: INSULIN GLARGINE [LANTus] (100 UNITS/ML) SYG SC (12:30)
[2018-11-30] MEDS ORDERED: SODIUM POLYSTYRENE 15 GM KIT (POWDER + SORBITOL) GTB (13:00)
[2018-11-30] MEDS: NA POLYST SULFON 15 GM/60 ML BTL GTB (13:44)
[2018-11-30] MEDS: VALPROIC ACID 250 MG CAP PO (20:26)
[2018-11-30] MEDS: VANCOMYCIN 750 MG (PMX) 250 ML IVPB (20:28)
[2018-11-30] MEDS: hydrOXYzine HCL 10 MG TAB GTB (21:05)
[2018-12-01] MEDS: IPRATROPIUM (HFA) 12.9 GM INHALER INH ×4 (00:18→23:12)
[2018-12-01] MEDS: LEVALBUTEROL (HFA) 15 GM INHALER INH ×4 (00:18→23:12)
[2018-12-01] MEDS: DIPHENHYDRAMINE 50 MG INJ IV (04:42)
[2018-12-01] MEDS: HYDROCORTISONE 100 MG INJ IV ×3 (05:21→21:41)
[2018-12-01] MEDS: INSULIN ASPART [NOVOLOG] 3 ML PEN SC ×3 (05:26→21:42)
[2018-12-01] MEDS: INSULIN GLARGINE [LANTus] (100 UNITS/ML) SYG SC (08:37)
[2018-12-01] MEDS: GABAPENTIN 300 MG CAP GTB ×2 (08:38→21:40)
[2018-12-01] MEDS: ASCORBIC ACID 500 MG TAB GTB (08:38)
[2018-12-01] MEDS: VALPROIC ACID LIQUID CUP 250 MG/5 ML CUP PO (08:38)
[2018-12-01] MEDS: SACCHAROMYCES BOULARDII 250 MG CAP PO ×2 (08:38→21:41)
[2018-12-01] MEDS: METOPROLOL 25 MG TAB PO ×2 (08:38→21:41)
[2018-12-01] MEDS: MULTIVITAMINS 30 ML CUP GTB (08:38)
[2018-12-01] MEDS: QUETIAPINE 25 MG TAB GTB ×3 (08:39→21:41)
[2018-12-01] MEDS: MEROPENEM 1 GM/50ML(PMX) 50 ML IVPB ×2 (08:39→22:31)
[2018-12-01] MEDS: LORATADINE 10 MG TAB PO (08:39)
[2018-12-01] MEDS: DESMOPRESSIN 4 MCG INJ SC ×2 (08:39→21:42)
[2018-12-01] MEDS: HYDROCORTISONE 1% 28.35 GM OINT TOP ×3 (08:40→21:42)
[2018-12-01] MEDS ORDERED: POTASSIUM CHLORIDE 50 ML (09:54)
[2018-12-01] MEDS: POTASSIUM CHLORIDE 50 ML IVPB (10:28)
[2018-12-01] MEDS: VANCOMYCIN 750 MG (PMX) 250 ML IVPB (20:13)
[2018-12-01] MEDS: VALPROIC ACID 250 MG CAP PO (21:43)
[2018-12-02] MEDS: INSULIN ASPART [NOVOLOG] 3 ML PEN SC ×3 (05:33→21:47)
[2018-12-02] MEDS: HYDROCORTISONE 100 MG INJ IV ×3 (05:34→21:49)
[2018-12-02] MEDS: LEVALBUTEROL (HFA) 15 GM INHALER INH ×3 (07:29→23:28)
[2018-12-02] MEDS: IPRATROPIUM (HFA) 12.9 GM INHALER INH ×3 (07:29→23:28)
[2018-12-02] MEDS: GABAPENTIN 300 MG CAP GTB ×2 (08:17→21:50)
[2018-12-02] MEDS: MULTIVITAMINS 30 ML CUP GTB (08:17)
[2018-12-02] MEDS: VALPROIC ACID LIQUID CUP 250 MG/5 ML CUP PO ×2 (08:17→12:01)
[2018-12-02] MEDS: ASCORBIC ACID 500 MG TAB GTB (08:18)
[2018-12-02] MEDS: QUETIAPINE 25 MG TAB GTB ×3 (08:18→21:49)
[2018-12-02] MEDS: SACCHAROMYCES BOULARDII 250 MG CAP PO ×2 (08:18→21:47)
[2018-12-02] MEDS: LORATADINE 10 MG TAB PO (08:18)
[2018-12-02] MEDS: METOPROLOL 25 MG TAB PO ×2 (08:19→21:50)
[2018-12-02] MEDS: HYDROCORTISONE 1% 28.35 GM OINT TOP ×3 (08:20→21:50)
[2018-12-02] MEDS: MEROPENEM 1 GM/50ML(PMX) 50 ML IVPB ×2 (08:33→21:49)
[2018-12-02] MEDS: DESMOPRESSIN 4 MCG INJ SC ×2 (08:43→21:48)
[2018-12-02] MEDS: INSULIN GLARGINE [LANTus] (100 UNITS/ML) SYG SC (12:00)
[2018-12-02] MEDS: POTASSIUM CHLORIDE 20 MEQ POWDER FOR ORAL SOLN GTB (12:01)
[2018-12-02] MEDS ORDERED: ZYVOX 600 MG TAB PO (13:30)
[2018-12-02] MEDS: ZYVOX 600 MG TAB GTB ×2 (14:58→21:47)
[2018-12-02] MEDS: COLLAGENASE 5 GM (UD JAR) TOP (21:49)
[2018-12-02] MEDS: VALPROIC ACID 250 MG CAP PO (21:50)
[2018-12-03] MEDS: HYDROCORTISONE 100 MG INJ IV ×3 (05:13→21:59)
[2018-12-03] MEDS: INSULIN ASPART [NOVOLOG] 3 ML PEN SC ×3 (05:14→22:00)
[2018-12-03] MEDS: IPRATROPIUM (HFA) 12.9 GM INHALER INH ×3 (07:26→23:29)
[2018-12-03] MEDS: LEVALBUTEROL (HFA) 15 GM INHALER INH ×3 (07:26→23:38)
[2018-12-03] MEDS: QUETIAPINE 25 MG TAB GTB ×3 (08:30→21:59)
[2018-12-03] MEDS: ZYVOX 600 MG TAB GTB ×2 (08:30→21:59)
[2018-12-03] MEDS: MULTIVITAMINS 30 ML CUP GTB (08:30)
[2018-12-03] MEDS: MEROPENEM 1 GM/50ML(PMX) 50 ML IVPB (08:30)
[2018-12-03] MEDS: DESMOPRESSIN 4 MCG INJ SC ×2 (08:30→22:02)
[2018-12-03] MEDS: ASCORBIC ACID 500 MG TAB GTB (08:30)
[2018-12-03] MEDS: METOPROLOL 25 MG TAB PO ×2 (08:31→22:00)
[2018-12-03] MEDS: LORATADINE 10 MG TAB PO (08:31)
[2018-12-03] MEDS: GABAPENTIN 300 MG CAP GTB ×2 (08:31→22:00)
[2018-12-03] MEDS: SACCHAROMYCES BOULARDII 250 MG CAP PO ×2 (08:31→21:59)
[2018-12-03] MEDS: HYDROCORTISONE 1% 28.35 GM OINT TOP ×3 (08:32→22:12)
[2018-12-03] MEDS: INSULIN GLARGINE [LANTus] (100 UNITS/ML) SYG SC (08:34)
[2018-12-03] MEDS: COLLAGENASE 5 GM (UD JAR) TOP ×2 (08:35→22:12)
[2018-12-03] MEDS: VALPROIC ACID LIQUID CUP 250 MG/5 ML CUP PO ×2 (08:35→12:50)
[2018-12-03] MEDS: [UNRECOGNIZED DRUG - OTHER] XX ×2 (14:30→22:30)
[2018-12-03] MEDS: IVERMECTIN 3 MG TAB PO (16:34)
[2018-12-03] MEDS: VALPROIC ACID 250 MG CAP PO (21:59)
[2018-12-04] MEDS: INSULIN ASPART [NOVOLOG] 3 ML PEN SC ×3 (05:54→22:00)
[2018-12-04] MEDS: HYDROCORTISONE 100 MG INJ IV ×3 (05:54→21:32)
[2018-12-04] MEDS: [UNRECOGNIZED DRUG - OTHER] XX ×3 (06:30→22:30)
[2018-12-04] MEDS: LEVALBUTEROL (HFA) 15 GM INHALER INH ×3 (08:00→23:49)
[2018-12-04] MEDS: IPRATROPIUM (HFA) 12.9 GM INHALER INH ×3 (08:53→23:49)
[2018-12-04] MEDS: MULTIVITAMINS 30 ML CUP GTB (10:10)
[2018-12-04] MEDS: ASCORBIC ACID 500 MG TAB GTB (10:11)
[2018-12-04] MEDS: LORATADINE 10 MG TAB PO (10:11)
[2018-12-04] MEDS: GABAPENTIN 300 MG CAP GTB ×2 (10:11→21:06)
[2018-12-04] MEDS: ZYVOX 600 MG TAB GTB ×2 (10:11→21:05)
[2018-12-04] MEDS: DESMOPRESSIN 4 MCG INJ SC ×2 (10:12→21:31)
[2018-12-04] MEDS: QUETIAPINE 25 MG TAB GTB ×3 (10:12→21:05)
[2018-12-04] MEDS: INSULIN GLARGINE [LANTus] (100 UNITS/ML) SYG SC (10:12)
[2018-12-04] MEDS: METOPROLOL 25 MG TAB PO ×2 (10:12→21:05)
[2018-12-04] MEDS: SACCHAROMYCES BOULARDII 250 MG CAP PO ×2 (10:12→21:05)
[2018-12-04] MEDS: HYDROCORTISONE 1% 28.35 GM OINT TOP ×3 (10:15→21:09)
[2018-12-04] MEDS: COLLAGENASE 5 GM (UD JAR) TOP ×2 (10:15→21:08)
[2018-12-04] MEDS: VALPROIC ACID LIQUID CUP 250 MG/5 ML CUP PO ×2 (11:51→15:23)
[2018-12-04] MEDS: MEROPENEM 1 GM/50ML(PMX) 50 ML IVPB (21:04)
[2018-12-04] MEDS: VALPROIC ACID 250 MG CAP PO (21:05)
[2018-12-05] MEDS: HYDROCORTISONE 100 MG INJ IV ×3 (05:47→21:34)
[2018-12-05] MEDS: INSULIN ASPART [NOVOLOG] 3 ML PEN SC ×3 (06:00→22:00)
[2018-12-05] MEDS: [UNRECOGNIZED DRUG - OTHER] XX ×3 (06:30→22:30)
[2018-12-05] MEDS: IPRATROPIUM (HFA) 12.9 GM INHALER INH ×3 (08:52→23:15)
[2018-12-05] MEDS: LEVALBUTEROL (HFA) 15 GM INHALER INH ×3 (08:52→23:15)
[2018-12-05] MEDS: MEROPENEM 1 GM/50ML(PMX) 50 ML IVPB ×2 (09:52→21:18)
[2018-12-05] MEDS: POTASSIUM CHLORIDE 100 ML IVPB ×3 (09:52→15:45)
[2018-12-05] MEDS: MULTIVITAMINS 30 ML CUP GTB (09:53)
[2018-12-05] MEDS: QUETIAPINE 25 MG TAB GTB ×3 (09:54→21:17)
[2018-12-05] MEDS: SACCHAROMYCES BOULARDII 250 MG CAP PO ×2 (09:54→21:17)
[2018-12-05] MEDS: ASCORBIC ACID 500 MG TAB GTB (09:54)
[2018-12-05] MEDS: LORATADINE 10 MG TAB PO (09:54)
[2018-12-05] MEDS: ZYVOX 600 MG TAB GTB ×2 (09:55→21:17)
[2018-12-05] MEDS: METOPROLOL 25 MG TAB PO ×2 (09:55→21:18)
[2018-12-05] MEDS: GABAPENTIN 300 MG CAP GTB ×2 (09:55→21:17)
[2018-12-05] MEDS: COLLAGENASE 5 GM (UD JAR) TOP ×2 (09:56→21:19)
[2018-12-05] MEDS: DESMOPRESSIN 4 MCG INJ SC ×2 (09:56→21:19)
[2018-12-05] MEDS: HYDROCORTISONE 1% 28.35 GM OINT TOP ×3 (09:56→21:19)
[2018-12-05] MEDS: VALPROIC ACID LIQUID CUP 250 MG/5 ML CUP PO ×2 (10:18→13:05)
[2018-12-05] MEDS: INSULIN GLARGINE [LANTus] (100 UNITS/ML) SYG SC (13:33)
[2018-12-05] MEDS: VALPROIC ACID 250 MG CAP PO (21:17)
[2018-12-05] MEDS: metroNIDAZOLE 500 MG TAB PO (21:34)
[2018-12-06] MEDS: POTASSIUM CHLORIDE 100 ML IVPB (01:48)
[2018-12-06] MEDS: metroNIDAZOLE 500 MG TAB PO ×3 (05:36→22:07)
[2018-12-06] MEDS: HYDROCORTISONE 100 MG INJ IV ×3 (05:36→22:07)
[2018-12-06] MEDS: INSULIN ASPART [NOVOLOG] 3 ML PEN SC ×3 (06:00→22:32)
[2018-12-06] MEDS: IPRATROPIUM (HFA) 12.9 GM INHALER INH ×3 (07:30→23:49)
[2018-12-06] MEDS: LEVALBUTEROL (HFA) 15 GM INHALER INH ×3 (07:31→23:49)
[2018-12-06] MEDS: [UNRECOGNIZED DRUG - OTHER] XX ×3 (07:38→22:30)
[2018-12-06] MEDS: DESMOPRESSIN 4 MCG INJ SC ×2 (08:58→20:38)
[2018-12-06] MEDS: ZYVOX 600 MG TAB GTB ×2 (08:58→20:37)
[2018-12-06] MEDS: MEROPENEM 1 GM/50ML(PMX) 50 ML IVPB ×2 (08:58→20:37)
[2018-12-06] MEDS: SACCHAROMYCES BOULARDII 250 MG CAP PO ×2 (08:59→20:38)
[2018-12-06] MEDS: QUETIAPINE 25 MG TAB GTB ×3 (08:59→20:37)
[2018-12-06] MEDS: LORATADINE 10 MG TAB PO (08:59)
[2018-12-06] MEDS: MULTIVITAMINS 30 ML CUP GTB (08:59)
[2018-12-06] MEDS: ASCORBIC ACID 500 MG TAB GTB (08:59)
[2018-12-06] MEDS: GABAPENTIN 300 MG CAP GTB ×2 (08:59→20:37)
[2018-12-06] MEDS: HYDROCORTISONE 1% 28.35 GM OINT TOP ×3 (08:59→20:39)
[2018-12-06] MEDS: COLLAGENASE 5 GM (UD JAR) TOP ×2 (08:59→20:38)
[2018-12-06] MEDS: VALPROIC ACID LIQUID CUP 250 MG/5 ML CUP PO ×2 (09:02→11:55)
[2018-12-06] MEDS: METOPROLOL 25 MG TAB PO ×2 (09:02→21:37)
[2018-12-06] MEDS: INSULIN GLARGINE [LANTus] (100 UNITS/ML) SYG SC (09:17)
[2018-12-06] MEDS: VALPROIC ACID 250 MG CAP PO (20:38)
[2018-12-07] MEDS: POTASSIUM CHLORIDE (SR) 20 MEQ TAB PO (01:11)
[2018-12-07] MEDS: INSULIN ASPART [NOVOLOG] 3 ML PEN SC ×3 (06:00→21:01)
[2018-12-07] MEDS: metroNIDAZOLE 500 MG TAB PO ×3 (06:25→21:01)
[2018-12-07] MEDS: HYDROCORTISONE 100 MG INJ IV ×3 (06:25→21:00)
[2018-12-07] MEDS: [UNRECOGNIZED DRUG - OTHER] XX ×3 (06:30→22:30)
[2018-12-07] MEDS: LEVALBUTEROL (HFA) 15 GM INHALER INH ×3 (07:21→23:34)
[2018-12-07] MEDS: IPRATROPIUM (HFA) 12.9 GM INHALER INH ×3 (07:21→23:34)
[2018-12-07] MEDS: DESMOPRESSIN 4 MCG INJ SC (08:52)
[2018-12-07] MEDS: LORATADINE 10 MG TAB PO (08:53)
[2018-12-07] MEDS: ASCORBIC ACID 500 MG TAB GTB (08:53)
[2018-12-07] MEDS: GABAPENTIN 300 MG CAP GTB ×2 (08:53→20:38)
[2018-12-07] MEDS: COLLAGENASE 5 GM (UD JAR) TOP ×2 (08:53→20:38)
[2018-12-07] MEDS: MEROPENEM 1 GM/50ML(PMX) 50 ML IVPB ×2 (08:53→20:37)
[2018-12-07] MEDS: ZYVOX 600 MG TAB GTB ×2 (08:53→20:37)
[2018-12-07] MEDS: MULTIVITAMINS 30 ML CUP GTB (08:53)
[2018-12-07] MEDS: SACCHAROMYCES BOULARDII 250 MG CAP PO ×2 (08:53→20:37)
[2018-12-07] MEDS: QUETIAPINE 25 MG TAB GTB ×3 (08:53→20:37)
[2018-12-07] MEDS: METOPROLOL 25 MG TAB PO ×2 (08:54→20:37)
[2018-12-07] MEDS: HYDROCORTISONE 1% 28.35 GM OINT TOP ×3 (08:54→20:38)
[2018-12-07] MEDS: VALPROIC ACID LIQUID CUP 250 MG/5 ML CUP PO ×2 (08:58→11:42)
[2018-12-07] MEDS: INSULIN GLARGINE [LANTus] (100 UNITS/ML) SYG SC (10:05)
[2018-12-07] MEDS: VALPROIC ACID 250 MG CAP PO (20:38)
[2018-12-07] MEDS: LORAZEPAM 2 MG INJ IV (20:38)
[2018-12-08] MEDS ORDERED: EPINEPHrine 0.1 MG/ML SYG
[2018-12-08] MEDS: INSULIN ASPART [NOVOLOG] 3 ML PEN SC ×3 (06:00→22:00)
[2018-12-08] MEDS: metroNIDAZOLE 500 MG TAB PO ×3 (06:11→22:25)
[2018-12-08] MEDS: HYDROCORTISONE 100 MG INJ IV ×3 (06:11→22:24)
[2018-12-08] MEDS: [UNRECOGNIZED DRUG - OTHER] XX (06:30)
[2018-12-08] MEDS: IPRATROPIUM (HFA) 12.9 GM INHALER INH ×3 (07:53→23:37)
[2018-12-08] MEDS: LEVALBUTEROL (HFA) 15 GM INHALER INH ×3 (07:54→23:37)
[2018-12-08] MEDS: LORAZEPAM 2 MG INJ IV ×2 (09:41→13:44)
[2018-12-08] MEDS: COLLAGENASE 5 GM (UD JAR) TOP ×2 (10:11→21:09)
[2018-12-08] MEDS: MULTIVITAMINS 30 ML CUP GTB (10:12)
[2018-12-08] MEDS: GABAPENTIN 300 MG CAP GTB ×2 (10:13→21:08)
[2018-12-08] MEDS: METOPROLOL 25 MG TAB PO ×2 (10:13→21:12)
[2018-12-08] MEDS: ZYVOX 600 MG TAB GTB ×2 (10:13→21:08)
[2018-12-08] MEDS: VALPROIC ACID LIQUID CUP 250 MG/5 ML CUP PO ×2 (10:13→12:56)
[2018-12-08] MEDS: MEROPENEM 1 GM/50ML(PMX) 50 ML IVPB ×2 (10:13→21:09)
[2018-12-08] MEDS: SACCHAROMYCES BOULARDII 250 MG CAP PO ×2 (10:14→21:09)
[2018-12-08] MEDS: LORATADINE 10 MG TAB PO (10:14)
[2018-12-08] MEDS: QUETIAPINE 25 MG TAB GTB ×3 (10:14→21:09)
[2018-12-08] MEDS: hydrOXYzine HCL 10 MG TAB GTB (10:14)
[2018-12-08] MEDS: ASCORBIC ACID 500 MG TAB GTB (10:14)
[2018-12-08] MEDS: HYDROCORTISONE 1% 28.35 GM OINT TOP ×3 (10:15→21:14)
[2018-12-08] MEDS: INSULIN GLARGINE [LANTus] (100 UNITS/ML) SYG SC (10:39)
[2018-12-08] MEDS: VALPROIC ACID 250 MG CAP PO (21:09)
[2018-12-09] MEDS: INSULIN ASPART [NOVOLOG] 3 ML PEN SC ×3 (06:00→21:52)
[2018-12-09] MEDS: HYDROCORTISONE 100 MG INJ IV ×3 (06:34→21:20)
[2018-12-09] MEDS: metroNIDAZOLE 500 MG TAB PO (06:34)
[2018-12-09] MEDS: LEVALBUTEROL (HFA) 15 GM INHALER INH ×3 (07:40→23:23)
[2018-12-09] MEDS: IPRATROPIUM (HFA) 12.9 GM INHALER INH ×3 (07:40→23:23)
[2018-12-09] MEDS: QUETIAPINE 25 MG TAB GTB ×3 (08:36→21:19)
[2018-12-09] MEDS: MEROPENEM 1 GM/50ML(PMX) 50 ML IVPB ×2 (08:36→21:19)
[2018-12-09] MEDS: SACCHAROMYCES BOULARDII 250 MG CAP PO ×2 (08:37→21:19)
[2018-12-09] MEDS: LORATADINE 10 MG TAB PO (08:37)
[2018-12-09] MEDS: ASCORBIC ACID 500 MG TAB GTB (08:37)
[2018-12-09] MEDS: HYDROCORTISONE 1% 28.35 GM OINT TOP ×3 (08:37→21:00)
[2018-12-09] MEDS: COLLAGENASE 5 GM (UD JAR) TOP ×2 (08:37→21:20)
[2018-12-09] MEDS: MULTIVITAMINS 30 ML CUP GTB (08:37)
[2018-12-09] MEDS: ZYVOX 600 MG TAB GTB ×2 (08:37→21:19)
[2018-12-09] MEDS: GABAPENTIN 300 MG CAP GTB ×2 (08:37→21:19)
[2018-12-09] MEDS: METOPROLOL 25 MG TAB PO ×2 (08:38→21:00)
[2018-12-09] MEDS: VALPROIC ACID LIQUID CUP 250 MG/5 ML CUP PO ×2 (08:44→12:15)
[2018-12-09] MEDS: INSULIN GLARGINE [LANTus] (100 UNITS/ML) SYG SC (08:53)
[2018-12-09] MEDS: POTASSIUM CHLORIDE 100 ML IVPB ×2 (10:22→17:37)
[2018-12-09] MEDS: D5W + KCL 20 MEQ 1,000 ML IV ×2 (12:15→17:38)
[2018-12-09] MEDS: DESMOPRESSIN 0.1 MG TAB PEG (12:15)
[2018-12-09] MEDS ORDERED: NORepinephrine 8MG/250 ML (PMX 250 ML IV (15:00)
[2018-12-09] MEDS ORDERED: PHENYLephrine 20MG IN 250 ML 250 ML IV ×2 (15:30→17:00)
[2018-12-09] MEDS: LACTATED RINGER'S 1,000 ML IV (16:51)
[2018-12-09] MEDS: NORepinephrine 8MG/250 ML (PMX 250 ML IV ×2 (16:54→20:28)
[2018-12-09] MEDS: metroNIDAZOLE 500 MG/NS (PMX) 100 ML IVPB ×2 (17:36→22:19)
[2018-12-09] MEDS: DESMOPRESSIN 4 MCG INJ SC ×2 (17:37→22:19)
[2018-12-09] MEDS: VALPROIC ACID 250 MG CAP PO (21:20)
[2018-12-09] MEDS: ACETAMINOPHEN 650MG/20.3ML CUP GTB (22:18)
[2018-12-10] MEDS: NORepinephrine 8MG/250 ML (PMX 250 ML IV ×3 (01:47→21:11)
[2018-12-10] MEDS: ACETAMINOPHEN 650MG/20.3ML CUP GTB ×2 (02:18→20:57)
[2018-12-10] MEDS: HYDROCORTISONE 100 MG INJ IV ×3 (05:54→21:04)
[2018-12-10] MEDS: metroNIDAZOLE 500 MG/NS (PMX) 100 ML IVPB ×3 (05:59→21:05)
[2018-12-10] MEDS: IPRATROPIUM (HFA) 12.9 GM INHALER INH ×3 (07:49→23:40)
[2018-12-10] MEDS: LEVALBUTEROL (HFA) 15 GM INHALER INH ×3 (07:50→23:40)
[2018-12-10] MEDS: D5W + KCL 20 MEQ 1,000 ML IV ×2 (08:51→20:53)
[2018-12-10] MEDS: MEROPENEM 1 GM/50ML(PMX) 50 ML IVPB ×2 (08:51→20:29)
[2018-12-10] MEDS: MULTIVITAMINS 30 ML CUP GTB (08:53)
[2018-12-10] MEDS: QUETIAPINE 25 MG TAB GTB ×3 (08:53→20:38)
[2018-12-10] MEDS: SACCHAROMYCES BOULARDII 250 MG CAP PO ×2 (08:53→20:40)
[2018-12-10] MEDS: GABAPENTIN 300 MG CAP GTB ×2 (08:54→20:36)
[2018-12-10] MEDS: LORATADINE 10 MG TAB PO (08:54)
[2018-12-10] MEDS: ASCORBIC ACID 500 MG TAB GTB (08:54)
[2018-12-10] MEDS: ZYVOX 600 MG TAB GTB ×2 (08:54→20:39)
[2018-12-10] MEDS: COLLAGENASE 5 GM (UD JAR) TOP ×2 (08:55→20:28)
[2018-12-10] MEDS: DESMOPRESSIN 4 MCG INJ SC ×2 (08:55→20:55)
[2018-12-10] MEDS: METOPROLOL 25 MG TAB PO ×2 (08:55→20:08)
[2018-12-10] MEDS: INSULIN GLARGINE [LANTus] (100 UNITS/ML) SYG SC (09:08)
[2018-12-10] MEDS: INSULIN ASPART [NOVOLOG] 3 ML PEN SC ×3 (09:19→21:11)
[2018-12-10] MEDS: VALPROIC ACID LIQUID CUP 250 MG/5 ML CUP PO ×2 (09:24→14:38)
[2018-12-10] MEDS: POTASSIUM CHLORIDE 100 ML IVPB (09:24)
[2018-12-10] MEDS: HYDROCORTISONE 1% 28.35 GM OINT TOP ×3 (13:30→20:56)
[2018-12-10] MEDS: VALPROIC ACID 250 MG CAP PO (20:38)
[2018-12-11] MEDS: metroNIDAZOLE 500 MG/NS (PMX) 100 ML IVPB ×3 (05:51→22:06)
[2018-12-11] MEDS: HYDROCORTISONE 100 MG INJ IV ×3 (05:52→22:07)
[2018-12-11] MEDS: INSULIN ASPART [NOVOLOG] 3 ML PEN SC ×3 (05:52→22:00)
[2018-12-11] MEDS: IPRATROPIUM (HFA) 12.9 GM INHALER INH ×3 (08:08→23:36)
[2018-12-11] MEDS: LEVALBUTEROL (HFA) 15 GM INHALER INH ×3 (08:08→23:36)
[2018-12-11] MEDS: MEROPENEM 1 GM/50ML(PMX) 50 ML IVPB ×2 (08:49→20:43)
[2018-12-11] MEDS: VALPROIC ACID LIQUID CUP 250 MG/5 ML CUP PO ×2 (08:50→13:16)
[2018-12-11] MEDS: D5W + KCL 20 MEQ 1,000 ML IV ×2 (08:50→22:06)
[2018-12-11] MEDS: COLLAGENASE 5 GM (UD JAR) TOP ×2 (08:50→20:45)
[2018-12-11] MEDS: MULTIVITAMINS 30 ML CUP GTB (08:50)
[2018-12-11] MEDS: GABAPENTIN 300 MG CAP GTB ×2 (08:51→20:45)
[2018-12-11] MEDS: SACCHAROMYCES BOULARDII 250 MG CAP PO ×2 (08:51→20:43)
[2018-12-11] MEDS: ZYVOX 600 MG TAB GTB ×2 (08:51→20:44)
[2018-12-11] MEDS: LORATADINE 10 MG TAB PO (08:51)
[2018-12-11] MEDS: DESMOPRESSIN 4 MCG INJ SC ×2 (08:52→20:45)
[2018-12-11] MEDS: METOPROLOL 25 MG TAB PO ×2 (08:52→20:44)
[2018-12-11] MEDS: QUETIAPINE 25 MG TAB GTB ×3 (08:52→20:44)
[2018-12-11] MEDS: ASCORBIC ACID 500 MG TAB GTB (08:52)
[2018-12-11] MEDS: HYDROCORTISONE 1% 28.35 GM OINT TOP ×3 (08:53→20:45)
[2018-12-11] MEDS: INSULIN GLARGINE [LANTus] (100 UNITS/ML) SYG SC (08:54)
[2018-12-11] MEDS: FENTAnyl 50 MCG/ML VIAL IV (13:16)
[2018-12-11] MEDS: VALPROIC ACID 250 MG CAP PO (20:44)
[2018-12-12] MEDS: metroNIDAZOLE 500 MG/NS (PMX) 100 ML IVPB ×3 (05:57→21:27)
[2018-12-12] MEDS: HYDROCORTISONE 100 MG INJ IV ×3 (05:57→21:27)
[2018-12-12] MEDS: INSULIN ASPART [NOVOLOG] 3 ML PEN SC ×3 (06:00→21:28)
[2018-12-12] MEDS: IPRATROPIUM (HFA) 12.9 GM INHALER INH ×3 (07:28→23:39)
[2018-12-12] MEDS: LEVALBUTEROL (HFA) 15 GM INHALER INH ×3 (07:28→23:39)
[2018-12-12] MEDS: MULTIVITAMINS 30 ML CUP GTB (08:43)
[2018-12-12] MEDS: LORATADINE 10 MG TAB PO (08:44)
[2018-12-12] MEDS: GABAPENTIN 300 MG CAP GTB ×2 (08:44→21:00)
[2018-12-12] MEDS: SACCHAROMYCES BOULARDII 250 MG CAP PO ×2 (08:44→21:02)
[2018-12-12] MEDS: QUETIAPINE 25 MG TAB GTB ×3 (08:44→21:01)
[2018-12-12] MEDS: VALPROIC ACID LIQUID CUP 250 MG/5 ML CUP PO ×2 (08:44→12:33)
[2018-12-12] MEDS: ASCORBIC ACID 500 MG TAB GTB (08:45)
[2018-12-12] MEDS: MEROPENEM 1 GM/50ML(PMX) 50 ML IVPB ×2 (08:45→21:01)
[2018-12-12] MEDS: METOPROLOL 25 MG TAB PO ×2 (08:45→21:02)
[2018-12-12] MEDS: COLLAGENASE 5 GM (UD JAR) TOP ×2 (08:45→21:03)
[2018-12-12] MEDS: ZYVOX 600 MG TAB GTB ×2 (08:45→21:01)
[2018-12-12] MEDS: HYDROCORTISONE 1% 28.35 GM OINT TOP ×3 (08:46→21:04)
[2018-12-12] MEDS: INSULIN GLARGINE [LANTus] (100 UNITS/ML) SYG SC (08:47)
[2018-12-12] MEDS ORDERED: DESMOPRESSIN 4 MCG INJ SC (12:00)
[2018-12-12] MEDS: DESMOPRESSIN 4 MCG INJ SC ×2 (12:34→21:03)
[2018-12-12] MEDS: IVERMECTIN 3 MG TAB PO (16:14)
[2018-12-12] MEDS: VALPROIC ACID 250 MG CAP PO (21:01)
[2018-12-12] MEDS: ACETAMINOPHEN 650MG/20.3ML CUP GTB (21:29)
[2018-12-13] MEDS: ACETAMINOPHEN 650MG/20.3ML CUP GTB (03:31)
[2018-12-13] MEDS: INSULIN ASPART [NOVOLOG] 3 ML PEN SC ×3 (06:00→22:00)
[2018-12-13] MEDS: HYDROCORTISONE 100 MG INJ IV ×3 (06:44→22:26)
[2018-12-13] MEDS: metroNIDAZOLE 500 MG/NS (PMX) 100 ML IVPB ×3 (06:45→22:27)
[2018-12-13] MEDS: IPRATROPIUM (HFA) 12.9 GM INHALER INH ×3 (08:33→23:14)
[2018-12-13] MEDS: LEVALBUTEROL (HFA) 15 GM INHALER INH ×3 (08:33→23:14)
[2018-12-13] MEDS: ASCORBIC ACID 500 MG TAB GTB (08:55)
[2018-12-13] MEDS: GABAPENTIN 300 MG CAP GTB ×2 (08:55→22:23)
[2018-12-13] MEDS: METOPROLOL 25 MG TAB PO ×2 (08:55→22:26)
[2018-12-13] MEDS: MULTIVITAMINS 30 ML CUP GTB (08:56)
[2018-12-13] MEDS: ZYVOX 600 MG TAB GTB ×2 (08:56→22:25)
[2018-12-13] MEDS: SACCHAROMYCES BOULARDII 250 MG CAP PO ×2 (08:56→23:01)
[2018-12-13] MEDS: LORATADINE 10 MG TAB PO (08:56)
[2018-12-13] MEDS: QUETIAPINE 25 MG TAB GTB ×3 (08:56→22:23)
[2018-12-13] MEDS: DESMOPRESSIN 4 MCG INJ SC ×2 (08:57→23:02)
[2018-12-13] MEDS: HYDROCORTISONE 1% 28.35 GM OINT TOP ×3 (08:57→22:52)
[2018-12-13] MEDS: VALPROIC ACID LIQUID CUP 250 MG/5 ML CUP PO ×2 (08:58→12:07)
[2018-12-13] MEDS: MEROPENEM 1 GM/50ML(PMX) 50 ML IVPB ×2 (08:58→22:27)
[2018-12-13] MEDS: COLLAGENASE 5 GM (UD JAR) TOP ×2 (08:58→22:27)
[2018-12-13] MEDS: INSULIN GLARGINE [LANTus] (100 UNITS/ML) SYG SC (09:49)
[2018-12-13] MEDS: VALPROIC ACID 250 MG CAP PO (22:23)
[2018-12-14] MEDS: HYDROCORTISONE 100 MG INJ IV ×3 (05:42→22:01)
[2018-12-14] MEDS: metroNIDAZOLE 500 MG/NS (PMX) 100 ML IVPB ×3 (05:43→22:02)
[2018-12-14] MEDS: INSULIN ASPART [NOVOLOG] 3 ML PEN SC ×3 (05:57→22:00)
[2018-12-14] MEDS: MULTIVITAMINS 30 ML CUP GTB (08:51)
[2018-12-14] MEDS: VALPROIC ACID LIQUID CUP 250 MG/5 ML CUP PO ×2 (08:51→12:03)
[2018-12-14] MEDS: GABAPENTIN 300 MG CAP GTB ×2 (08:52→22:03)
[2018-12-14] MEDS: MEROPENEM 1 GM/50ML(PMX) 50 ML IVPB ×2 (08:52→22:02)
[2018-12-14] MEDS: COLLAGENASE 5 GM (UD JAR) TOP ×2 (08:52→22:01)
[2018-12-14] MEDS: DESMOPRESSIN 4 MCG INJ SC ×2 (08:52→22:04)
[2018-12-14] MEDS: SACCHAROMYCES BOULARDII 250 MG CAP PO ×2 (08:53→22:49)
[2018-12-14] MEDS: QUETIAPINE 25 MG TAB GTB ×3 (08:53→22:49)
[2018-12-14] MEDS: ASCORBIC ACID 500 MG TAB GTB (08:53)
[2018-12-14] MEDS: LORATADINE 10 MG TAB PO (08:53)
[2018-12-14] MEDS: ZYVOX 600 MG TAB GTB ×2 (08:53→22:02)
[2018-12-14] MEDS: METOPROLOL 25 MG TAB PO ×2 (08:53→22:03)
[2018-12-14] MEDS: HYDROCORTISONE 1% 28.35 GM OINT TOP ×3 (08:59→22:03)
[2018-12-14] MEDS: INSULIN GLARGINE [LANTus] (100 UNITS/ML) SYG SC (09:12)
[2018-12-14] MEDS: LEVALBUTEROL (HFA) 15 GM INHALER INH ×2 (09:14→16:06)
[2018-12-14] MEDS: IPRATROPIUM (HFA) 12.9 GM INHALER INH ×2 (09:14→16:05)
[2018-12-14] MEDS: POTASSIUM CHLORIDE (SR) 20 MEQ TAB PO (12:03)
[2018-12-14] MEDS: POTASSIUM CHLORIDE 100 ML IVPB ×3 (16:39→22:47)
[2018-12-14] MEDS: POTASSIUM CHLORIDE 20 MEQ POWDER FOR ORAL SOLN GTB (16:39)
[2018-12-14] MEDS: POTASSIUM CHLORIDE 20 MEQ POWDER FOR ORAL SOLN PO (22:06)
[2018-12-14] MEDS: VALPROIC ACID 250 MG CAP PO (22:49)
[2018-12-15] MEDS: POTASSIUM CHLORIDE 100 ML IVPB (01:23)
[2018-12-15] MEDS: LEVALBUTEROL (HFA) 15 GM INHALER INH ×4 (01:57→23:56)
[2018-12-15] MEDS: IPRATROPIUM (HFA) 12.9 GM INHALER INH ×4 (01:58→23:56)
[2018-12-15] MEDS: INSULIN ASPART [NOVOLOG] 3 ML PEN SC ×3 (06:00→22:00)
[2018-12-15] MEDS: HYDROCORTISONE 100 MG INJ IV ×3 (06:06→22:18)
[2018-12-15] MEDS: metroNIDAZOLE 500 MG/NS (PMX) 100 ML IVPB ×3 (06:07→22:19)
[2018-12-15] MEDS: MULTIVITAMINS 30 ML CUP GTB (10:45)
[2018-12-15] MEDS: MEROPENEM 1 GM/50ML(PMX) 50 ML IVPB (10:45)
[2018-12-15] MEDS: COLLAGENASE 5 GM (UD JAR) TOP ×2 (10:45→22:20)
[2018-12-15] MEDS: ACETAMINOPHEN 650MG/20.3ML CUP GTB (10:46)
[2018-12-15] MEDS: SACCHAROMYCES BOULARDII 250 MG CAP PO ×2 (10:46→22:16)
[2018-12-15] MEDS: POTASSIUM CHLORIDE 20 MEQ POWDER FOR ORAL SOLN PO ×3 (10:46→22:55)
[2018-12-15] MEDS: QUETIAPINE 25 MG TAB GTB ×3 (10:47→22:13)
[2018-12-15] MEDS: DESMOPRESSIN 4 MCG INJ SC ×2 (10:47→22:18)
[2018-12-15] MEDS: ZYVOX 600 MG TAB GTB (10:48)
[2018-12-15] MEDS: LORATADINE 10 MG TAB PO (10:48)
[2018-12-15] MEDS: ASCORBIC ACID 500 MG TAB GTB (10:48)
[2018-12-15] MEDS: METOPROLOL 25 MG TAB PO ×2 (10:48→22:17)
[2018-12-15] MEDS: GABAPENTIN 300 MG CAP GTB ×2 (10:49→22:17)
[2018-12-15] MEDS: HYDROCORTISONE 1% 28.35 GM OINT TOP ×3 (10:49→22:20)
[2018-12-15] MEDS: VALPROIC ACID LIQUID CUP 250 MG/5 ML CUP PO ×2 (10:57→13:48)
[2018-12-15] MEDS: INSULIN GLARGINE [LANTus] (100 UNITS/ML) SYG SC (10:59)
[2018-12-15] MEDS: VALPROIC ACID 250 MG CAP PO (22:13)
[2018-12-16] MEDS: HYDROCORTISONE 100 MG INJ IV ×3 (05:22→21:49)
[2018-12-16] MEDS: PANTOPRAZOLE 40 MG INJ IV (05:22)
[2018-12-16] MEDS: metroNIDAZOLE 500 MG/NS (PMX) 100 ML IVPB ×3 (05:23→21:50)
[2018-12-16] MEDS: INSULIN ASPART [NOVOLOG] 3 ML PEN SC ×4 (05:27→21:00)
[2018-12-16] MEDS: IPRATROPIUM (HFA) 12.9 GM INHALER INH ×2 (08:00→16:00)
[2018-12-16] MEDS: LEVALBUTEROL (HFA) 15 GM INHALER INH ×2 (08:00→16:00)
[2018-12-16] MEDS: GABAPENTIN 300 MG CAP GTB ×2 (08:38→21:49)
[2018-12-16] MEDS: VALPROIC ACID LIQUID CUP 250 MG/5 ML CUP PO ×2 (08:38→13:10)
[2018-12-16] MEDS: COLLAGENASE 5 GM (UD JAR) TOP ×2 (08:38→21:51)
[2018-12-16] MEDS: DESMOPRESSIN 4 MCG INJ SC ×2 (08:38→21:50)
[2018-12-16] MEDS: SACCHAROMYCES BOULARDII 250 MG CAP PO ×2 (08:39→21:48)
[2018-12-16] MEDS: POTASSIUM CHLORIDE 20 MEQ POWDER FOR ORAL SOLN PO ×2 (08:39→21:47)
[2018-12-16] MEDS: QUETIAPINE 25 MG TAB GTB ×3 (08:39→21:48)
[2018-12-16] MEDS: ASCORBIC ACID 500 MG TAB GTB (08:39)
[2018-12-16] MEDS: LORATADINE 10 MG TAB PO (08:39)
[2018-12-16] MEDS: METOPROLOL 25 MG TAB PO ×2 (08:39→21:48)
[2018-12-16] MEDS: MULTIVITAMINS 30 ML CUP GTB (08:40)
[2018-12-16] MEDS: HYDROCORTISONE 1% 28.35 GM OINT TOP ×3 (08:40→21:51)
[2018-12-16] MEDS: INSULIN GLARGINE [LANTus] (100 UNITS/ML) SYG SC (12:00)
[2018-12-16] MEDS: DEXTROSE 50% 50 ML SYRINGE IV ×2 (14:57→22:52)
[2018-12-16] MEDS: VALPROIC ACID 250 MG CAP PO (21:49)
[2018-12-17] MEDS: ACCU-CHEK XX (00:24)
[2018-12-17] MEDS: ACETAMINOPHEN 650MG/20.3ML CUP GTB (00:39)
[2018-12-17] MEDS: LEVALBUTEROL (HFA) 15 GM INHALER INH ×4 (01:01→23:59)
[2018-12-17] MEDS: IPRATROPIUM (HFA) 12.9 GM INHALER INH ×4 (01:01→23:59)
[2018-12-17] MEDS: metroNIDAZOLE 500 MG/NS (PMX) 100 ML IVPB (05:36)
[2018-12-17] MEDS: PANTOPRAZOLE 40 MG INJ IV (05:36)
[2018-12-17] MEDS: HYDROCORTISONE 100 MG INJ IV ×3 (05:36→21:57)
[2018-12-17] MEDS: INSULIN ASPART [NOVOLOG] 3 ML PEN SC ×4 (08:00→22:10)
[2018-12-17] MEDS ORDERED: INSULIN GLARGINE [LANTus] (100 UNITS/ML) SYG SC (08:00)
[2018-12-17] MEDS: MULTIVITAMINS 30 ML CUP GTB (10:27)
[2018-12-17] MEDS: DESMOPRESSIN 4 MCG INJ SC ×2 (10:28→21:58)
[2018-12-17] MEDS: COLLAGENASE 5 GM (UD JAR) TOP ×2 (10:28→21:57)
[2018-12-17] MEDS: SACCHAROMYCES BOULARDII 250 MG CAP PO ×2 (10:28→21:56)
[2018-12-17] MEDS: HYDROCORTISONE 1% 28.35 GM OINT TOP ×3 (10:28→21:58)
[2018-12-17] MEDS: POTASSIUM CHLORIDE 20 MEQ POWDER FOR ORAL SOLN PO ×2 (10:28→21:55)
[2018-12-17] MEDS: QUETIAPINE 25 MG TAB GTB ×3 (10:30→21:57)
[2018-12-17] MEDS: ASCORBIC ACID 500 MG TAB GTB (10:30)
[2018-12-17] MEDS: METOPROLOL 25 MG TAB PO ×2 (10:30→22:05)
[2018-12-17] MEDS: GABAPENTIN 300 MG CAP GTB ×2 (10:30→21:55)
[2018-12-17] MEDS: LORATADINE 10 MG TAB PO (10:30)
[2018-12-17] MEDS: VALPROIC ACID LIQUID CUP 250 MG/5 ML CUP PO ×2 (10:44→13:28)
[2018-12-17] MEDS: VALPROIC ACID 250 MG CAP PO (21:56)
[2018-12-18] MEDS: ACCU-CHEK XX (02:00)
[2018-12-18] MEDS: LANSOPRAZOLE (SOLTAB) 30 MG TAB PO (05:25)
[2018-12-18] MEDS ORDERED: PANTOPRAZOLE (EC) 40 MG TAB PO (06:00)
[2018-12-18] MEDS: INSULIN ASPART [NOVOLOG] 3 ML PEN SC ×4 (08:00→21:00)
[2018-12-18] MEDS: IPRATROPIUM (HFA) 12.9 GM INHALER INH ×3 (08:27→23:02)
[2018-12-18] MEDS: LEVALBUTEROL (HFA) 15 GM INHALER INH ×3 (08:27→23:03)
[2018-12-18] MEDS: MULTIVITAMINS 30 ML CUP GTB (09:40)
[2018-12-18] MEDS: VALPROIC ACID LIQUID CUP 250 MG/5 ML CUP PO ×2 (09:41→13:46)
[2018-12-18] MEDS: GABAPENTIN 300 MG CAP GTB ×2 (09:41→22:02)
[2018-12-18] MEDS: SACCHAROMYCES BOULARDII 250 MG CAP PO ×2 (09:41→21:59)
[2018-12-18] MEDS: QUETIAPINE 25 MG TAB GTB ×3 (09:41→22:02)
[2018-12-18] MEDS: LORATADINE 10 MG TAB PO (09:41)
[2018-12-18] MEDS: COLLAGENASE 5 GM (UD JAR) TOP ×2 (09:41→21:58)
[2018-12-18] MEDS: ASCORBIC ACID 500 MG TAB GTB (09:41)
[2018-12-18] MEDS: POTASSIUM CHLORIDE 20 MEQ POWDER FOR ORAL SOLN PO ×2 (09:41→21:59)
[2018-12-18] MEDS: HYDROCORTISONE 100 MG INJ IV ×2 (09:42→21:58)
[2018-12-18] MEDS: METOPROLOL 25 MG TAB PO ×2 (09:42→22:02)
[2018-12-18] MEDS: DESMOPRESSIN 4 MCG INJ SC ×2 (09:43→22:03)
[2018-12-18] MEDS: HYDROCORTISONE 1% 28.35 GM OINT TOP ×3 (09:44→21:00)
[2018-12-18] MEDS: ACETAMINOPHEN 650MG/20.3ML CUP GTB ×2 (09:55→22:29)
[2018-12-18] MEDS: VALPROIC ACID 250 MG CAP PO (22:02)
[2018-12-19] MEDS: ACCU-CHEK XX (01:27)
[2018-12-19] MEDS: LORAZEPAM 2 MG INJ IV (02:05)
[2018-12-19] MEDS: LANSOPRAZOLE (SOLTAB) 30 MG TAB PO (05:27)
[2018-12-19] MEDS: INSULIN ASPART [NOVOLOG] 3 ML PEN SC ×4 (08:00→21:00)
[2018-12-19] MEDS: DESMOPRESSIN 4 MCG INJ SC ×2 (09:46→21:12)
[2018-12-19] MEDS: HYDROCORTISONE 100 MG INJ IV ×2 (09:48→21:14)
[2018-12-19] MEDS: MULTIVITAMINS 30 ML CUP GTB (09:51)
[2018-12-19] MEDS: ASCORBIC ACID 500 MG TAB GTB (09:51)
[2018-12-19] MEDS: LORATADINE 10 MG TAB PO (09:52)
[2018-12-19] MEDS: METOPROLOL 25 MG TAB PO ×2 (09:53→21:00)
[2018-12-19] MEDS: SACCHAROMYCES BOULARDII 250 MG CAP PO ×2 (09:53→21:07)
[2018-12-19] MEDS: GABAPENTIN 300 MG CAP GTB ×2 (09:53→21:08)
[2018-12-19] MEDS: QUETIAPINE 25 MG TAB GTB ×3 (09:54→21:08)
[2018-12-19] MEDS: POTASSIUM CHLORIDE 20 MEQ POWDER FOR ORAL SOLN PO ×2 (09:54→21:07)
[2018-12-19] MEDS: LEVALBUTEROL (HFA) 15 GM INHALER INH ×4 (09:54→23:16)
[2018-12-19] MEDS: IPRATROPIUM (HFA) 12.9 GM INHALER INH ×4 (09:55→23:16)
[2018-12-19] MEDS: COLLAGENASE 5 GM (UD JAR) TOP ×2 (09:56→21:07)
[2018-12-19] MEDS: HYDROCORTISONE 1% 28.35 GM OINT TOP ×3 (09:56→21:13)
[2018-12-19] MEDS: VALPROIC ACID LIQUID CUP 250 MG/5 ML CUP PO ×2 (09:59→14:15)
[2018-12-19] MEDS: VALPROIC ACID 250 MG CAP PO (21:08)
[2018-12-20] MEDS: ACCU-CHEK XX (01:13)
[2018-12-20] MEDS: LANSOPRAZOLE (SOLTAB) 30 MG TAB PO (05:50)
[2018-12-20] MEDS: LEVALBUTEROL (HFA) 15 GM INHALER INH ×3 (07:32→23:20)
[2018-12-20] MEDS: IPRATROPIUM (HFA) 12.9 GM INHALER INH ×3 (07:33→23:20)
[2018-12-20] MEDS: INSULIN ASPART [NOVOLOG] 3 ML PEN SC ×4 (08:53→21:00)
[2018-12-20] MEDS: MULTIVITAMINS 30 ML CUP GTB (08:53)
[2018-12-20] MEDS: COLLAGENASE 5 GM (UD JAR) TOP ×2 (08:53→21:31)
[2018-12-20] MEDS: DESMOPRESSIN 4 MCG INJ SC ×2 (08:53→21:33)
[2018-12-20] MEDS: HYDROCORTISONE 100 MG INJ IV ×2 (08:53→21:31)
[2018-12-20] MEDS: LORATADINE 10 MG TAB PO (08:54)
[2018-12-20] MEDS: SACCHAROMYCES BOULARDII 250 MG CAP PO ×2 (08:54→21:32)
[2018-12-20] MEDS: METOPROLOL 25 MG TAB PO ×2 (08:54→21:34)
[2018-12-20] MEDS: POTASSIUM CHLORIDE 20 MEQ POWDER FOR ORAL SOLN PO ×2 (08:54→21:32)
[2018-12-20] MEDS: QUETIAPINE 25 MG TAB GTB ×3 (08:54→21:32)
[2018-12-20] MEDS: HYDROCORTISONE 1% 28.35 GM OINT TOP ×3 (08:55→21:36)
[2018-12-20] MEDS: ASCORBIC ACID 500 MG TAB GTB (08:55)
[2018-12-20] MEDS: GABAPENTIN 300 MG CAP GTB ×2 (08:55→21:32)
[2018-12-20] MEDS: VALPROIC ACID LIQUID CUP 250 MG/5 ML CUP PO ×2 (08:58→12:53)
[2018-12-20] MEDS: VALPROIC ACID 250 MG CAP PO (21:32)
[2018-12-20] MEDS: ACETAMINOPHEN 650MG/20.3ML CUP GTB (21:56)
[2018-12-21] MEDS: INSULIN ASPART [NOVOLOG] 3 ML PEN SC ×6 (01:00→20:47)
[2018-12-21] MEDS: ACCU-CHEK XX (01:32)
[2018-12-21] MEDS: LANSOPRAZOLE (SOLTAB) 30 MG TAB PO (05:29)
[2018-12-21] MEDS: DESMOPRESSIN 4 MCG INJ SC ×2 (08:20→20:58)
[2018-12-21] MEDS: GABAPENTIN 300 MG CAP GTB ×2 (08:20→20:55)
[2018-12-21] MEDS: LORATADINE 10 MG TAB PO (08:20)
[2018-12-21] MEDS: ASCORBIC ACID 500 MG TAB GTB (08:20)
[2018-12-21] MEDS: SACCHAROMYCES BOULARDII 250 MG CAP PO ×2 (08:20→20:56)
[2018-12-21] MEDS: QUETIAPINE 25 MG TAB GTB ×3 (08:20→20:56)
[2018-12-21] MEDS: HYDROCORTISONE 100 MG INJ IV ×2 (08:20→20:58)
[2018-12-21] MEDS: POTASSIUM CHLORIDE 20 MEQ POWDER FOR ORAL SOLN PO ×2 (08:20→20:56)
[2018-12-21] MEDS: METOPROLOL 25 MG TAB PO ×2 (08:21→20:57)
[2018-12-21] MEDS: MULTIVITAMINS 30 ML CUP GTB (08:21)
[2018-12-21] MEDS: HYDROCORTISONE 1% 28.35 GM OINT TOP ×3 (08:22→20:58)
[2018-12-21] MEDS: COLLAGENASE 5 GM (UD JAR) TOP ×2 (08:22→20:57)
[2018-12-21] MEDS: VALPROIC ACID LIQUID CUP 250 MG/5 ML CUP PO ×2 (08:22→13:01)
[2018-12-21] MEDS: IPRATROPIUM (HFA) 12.9 GM INHALER INH ×2 (08:34→15:50)
[2018-12-21] MEDS: LEVALBUTEROL (HFA) 15 GM INHALER INH ×3 (08:35→23:57)
[2018-12-21] MEDS: VALPROIC ACID 250 MG CAP PO (20:55)
[2018-12-22] MEDS: INSULIN ASPART [NOVOLOG] 3 ML PEN SC ×4 (01:00→13:00)
[2018-12-22] MEDS: ACCU-CHEK XX (01:38)
[2018-12-22] MEDS: LANSOPRAZOLE (SOLTAB) 30 MG TAB PO (05:45)
[2018-12-22] MEDS: LEVALBUTEROL (HFA) 15 GM INHALER INH (07:59)
[2018-12-22] MEDS: IPRATROPIUM (HFA) 12.9 GM INHALER INH ×2 (07:59)
[2018-12-22] MEDS: METOPROLOL 25 MG TAB PO (09:18)
[2018-12-22] MEDS: COLLAGENASE 5 GM (UD JAR) TOP (09:18)
[2018-12-22] MEDS: MULTIVITAMINS 30 ML CUP GTB (09:18)
[2018-12-22] MEDS: POTASSIUM CHLORIDE 20 MEQ POWDER FOR ORAL SOLN PO (09:19)
[2018-12-22] MEDS: QUETIAPINE 25 MG TAB GTB ×2 (09:19→13:22)
[2018-12-22] MEDS: ASCORBIC ACID 500 MG TAB GTB (09:19)
[2018-12-22] MEDS: LORATADINE 10 MG TAB PO (09:19)
[2018-12-22] MEDS: SACCHAROMYCES BOULARDII 250 MG CAP PO (09:19)
[2018-12-22] MEDS: GABAPENTIN 300 MG CAP GTB (09:19)
[2018-12-22] MEDS: HYDROCORTISONE 100 MG INJ IV (09:19)
[2018-12-22] MEDS: DESMOPRESSIN 4 MCG INJ SC (09:20)
[2018-12-22] MEDS: HYDROCORTISONE 1% 28.35 GM OINT TOP ×2 (09:21→13:22)
[2018-12-22] MEDS: VALPROIC ACID LIQUID CUP 250 MG/5 ML CUP PO ×2 (09:43→13:20)
== END 2018-12-22 15:45 | DRG 853 ==
LOC: TEL 19:37 → ICU 09-03 15:43 → 6WM 09-11 22:36 → ICU 09-21 19:11 → 6WM 09-26 13:10 → ICU 11-29 15:50 → TEL 12-03 11:34 → ICU 12-09 14:20 → 6WM 12-12 13:09 → ICU 10-29 11:04 → E/R 19:24 → ICU 10-27 23:55
PROC: 0JB90ZZ Excision of Buttock Subcutaneous Tissue and Fascia, Open Approach (ICD-10-PCS; principal; 2018-08-20 10:21)
PROC: 0HB8XZZ Excision of Buttock Skin, External Approach (ICD-10-PCS; 2018-08-20 10:21)
PROC: 5A1955Z Respiratory Ventilation, Greater than 96 Consecutive Hours (ICD-10-PCS; 2018-08-20 10:21)
PROC: 0RSJXZZ Reposition Right Shoulder Joint, External Approach (ICD-10-PCS; 2018-08-20 10:21)
PROC: 0DH63UZ Insertion of Feeding Device into Stomach, Percutaneous Approach (ICD-10-PCS; 2018-08-20 10:21)
PROC: 02HV33Z Insertion of Infusion Device into Superior Vena Cava, Percutaneous Approach (ICD-10-PCS; 2018-08-20 10:21)
PROC: 02HV33Z Insertion of Infusion Device into Superior Vena Cava, Percutaneous Approach (ICD-10-PCS; 2018-08-20 10:21)
PROC: 30233N1 Transfusion of Nonautologous Red Blood Cells into Peripheral Vein, Percutaneous Approach (ICD-10-PCS; 2018-08-20 10:21)
PROC: 06HM33Z Insertion of Infusion Device into Right Femoral Vein, Percutaneous Approach (ICD-10-PCS; 2018-08-20 10:21)
PROC: 02HV33Z Insertion of Infusion Device into Superior Vena Cava, Percutaneous Approach (ICD-10-PCS; 2018-08-20 10:21)
DX: A41.9 Sepsis, unspecified organism (principal); J69.0 Pneumonitis due to inhalation of food and vomit; R65.21 Severe sepsis with septic shock; I46.9 Cardiac arrest, cause unspecified; L02.31 Cutaneous abscess of buttock; K94.22 Gastrostomy infection; L03.311 Cellulitis of abdominal wall; N39.0 Urinary tract infection, site not specified; E87.0 Hyperosmolality and hypernatremia; N17.9 Acute kidney failure, unspecified; J90 Pleural effusion, not elsewhere classified; G93.40 Encephalopathy, unspecified; I13.0 Hypertensive heart and chronic kidney disease with heart failure and stage 1 through stage 4 chronic kidney disease, or unspecified chronic kidney disease; J96.10 Chronic respiratory failure, unspecified whether with hypoxia or hypercapnia; A04.72 Enterocolitis due to Clostridium difficile, not specified as recurrent; S43.084A Other dislocation of right shoulder joint, initial encounter; J84.10 Pulmonary fibrosis, unspecified; J44.9 Chronic obstructive pulmonary disease, unspecified; D64.9 Anemia, unspecified; I95.9 Hypotension, unspecified; Z93.1 Gastrostomy status; B96.5 Pseudomonas (aeruginosa) (mallei) (pseudomallei) as the cause of diseases classified elsewhere; R60.1 Generalized edema; E11.22 Type 2 diabetes mellitus with diabetic chronic kidney disease; N18.9 Chronic kidney disease, unspecified; I50.9 Heart failure, unspecified; E11.42 Type 2 diabetes mellitus with diabetic polyneuropathy; F39 Unspecified mood [affective] disorder; R13.10 Dysphagia, unspecified
CPT/HCPCS: 36415; 36430; 36569; 36600; 71045; 71260; 72170; 73020; 73030-RT; 74018; 74150; 74176; 76937; 78806; 80048; 80053; 80150; 80200; 80202; 81003; 82270; 82533; 82607; 82728; 82746; 82803; 82962; 83010; 83540; 83605; 83615; 83735; 83880; 84100; 84132; 84134; 84145; 84443; 84478; 84484; 84560; 85014; 85018; 85025; 85049; 85362; 85378; 85384; 85610; 85670; 85730; 86022; 86850; 86900; 86901; 86920; 87040-91; 87070; 87075; 87081; 87086; 87102; 87116; 88304; 88305; 89220; 92523; 92950; 93005; 93306; 93308; 93970; 94002; 94003; 94640; 94664; 94799; 97110; 97162; 97163; 97530; 99285-25